=== PATIENT | female | born 1995 | race Caucasian/White ===

== ENCOUNTER 2016-09-12 10:53 | Emergency (ER) | payer OTHER ==
[~2016-09-12] VITALS: Ht 162.6 cm; Wt 118.0 kg
[~2016-09-12 10:53] MED LIST: CIPR-255 PO
[2016-09-12 10:59] VITALS: TEMP 36.9; Ht 162.6 cm; Wt 118.0 kg
--- NOTE | 2016-09-12 11:29 | DIAGNOSTIC IMAGING REPORT ---
CHEST ONE VIEW PORTABLE CLINICAL HISTORY: CHEST PAIN dyspnea COMPARISON STUDY: No previous studies for comparison. FINDINGS: The bones soft tissues and hemidiaphragms are normal. The cardiomediastinal silhouette is normal. The lungs are clear. The pulmonary vasculature is normal. IMPRESSION: Negative chest. Electronically signed by: Alexandro Delarosa M.D. 09/12/2016 11:28 AM Dictated Date/Time: 09/12/2016 11:28 AM
[2016-09-12 11:30] LABS: BASO % 0.2 %; BASO ABS # 0.03 K/uL (0-0.2); COMPLETE YES; EOS % 5.6 %; HEMATOCRIT 42.8 % (37-47); IG% 0.3 %; LYMPH % 30.7 %; LYMPH ABS # 3.97 K/uL (1.2-3.4); MEAN CELL VOLUME 86.8 fL (80-100); MEAN CORPUSCULAR HEMOGLOBIN 28.8 pg (25-34); MEAN CORPUSCULAR HGB CONC 33.2 g/dl (32-36); MEAN PLATELET VOLUME 10.1 fL (7.4-10.4); MONO % 7.9 %; NEUT % 55.3 %; PLATELET COUNT 280 K/uL (130-400); RED BLOOD COUNT 4.93 M/uL (4.2-5.4); WHITE BLOOD COUNT 12.94 K/uL (4.8-10.8)
[2016-09-12 11:53] LABS: PREG INTERNAL NEGATIVE QC NEG CLEAR BACKGROUND; PREG INTERNAL POSITIVE QC POS CONTROL LINE
[2016-09-12 11:57] LABS: ALKALINE PHOSPHATASE 102 U/L (45-117); ALT/SGPT 36 U/L (12-78); BLOOD UREA NITROGEN 14 mg/dl (7-18); BUN/CREATININE RATIO 18.6 (10-20); CALCIUM 8.4 mg/dl (8.5-10.1); CARBON DIOXIDE 25 mmol/L (21-32); CHLORIDE 109 mmol/L (98-107); CREATININE 0.74 mg/dl (0.60-1.20); GLUCOSE 113 mg/dl (70-99); POTASSIUM 4.4 mmol/L (3.5-5.1); SODIUM 141 mmol/L (136-145)
[2016-09-12 11:58] LABS: AST/SGOT 19 U/L (15-37)
[2016-09-12] MEDS ORDERED: OPTIRAY 320 IV PRN (12:45)
--- NOTE | 2016-09-12 13:29 | DIAGNOSTIC IMAGING REPORT ---
CHEST CTA for PULMONARY ARTERIES CT DOSE: 712.12 mGy.cm HISTORY: Chest pain dyspnea TECHNIQUE: Multiaxial CT images of the chest were performed following the intravenous administration of contrast to evaluate the pulmonary arteries. Maximal intensity projection images were also obtained. COMPARISON STUDY: None. FINDINGS: There is a normal caliber thoracic aorta with no evidence for dissection. There is no evidence for pulmonary embolus. No pleural effusions. No pneumothorax. The liver and spleen are unremarkable. No mediastinal or hilar lymphadenopathy. The central airways are patent. The lungs are clear. Small component of residual 5 minutes. IMPRESSION: No evidence for pulmonary embolus. Lungs are clear. Electronically signed by: Alexandro Delarosa M.D. 09/12/2016 1:28 PM Dictated Date/Time: 09/12/2016 1:24 PM
--- NOTE | 2016-09-12 14:19 | EMERGENCY ROOM VISIT NOTE ---
History Report prepared by Hemalatha: Angelo Ford Under the Supervision of: Dr. Demarcus Méndez M.D. First contact with patient: 11:04 Chief Complaint: CHEST PAIN Stated Complaint: BREATHING PROBLEMS,CHEST PAIN Nursing Triage Summary: substernal chest pain to left side with a cough that goes into her back that feels like needles History of Present Illness The patient is a 21 year old female who presents to the Emergency Room with complaints of constant left sided chest pain beginning yesterday. She states that her pain radiates around her side and into her back. She states that she was driving when her pain began. The patient notes that she recently returned home from a car trip to [place] a few days ago. She also complains of a productive cough and SOB. Her pain is worsened with coughing. Her cough produces a dark green sputum. The patient denies any trauma. 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 Source of History: patient Onset: yesterday Position: chest (left) Timing: constant Modifying Factors (Worsening): other (coughing) Associated Symptoms: + SOB, + cough (productive) Review of Systems See HPI for pertinent positives & negatives. A total of 10 systems reviewed and were otherwise negative. Past Medical & Surgical Medical Problems: (1) No Known Active Medical Problems (2) Urinary tract infection (3) Urinary tract infection Old medical records were reviewed. Nurse's notes were reviewed and I agree with. No history of cardiac disease, blood clots or pulmonary disease Family History No pertinent family history stated. Social History Smoking Status: Current Every Day Smoker Marital Status: in relationship Allergies Coded Allergies: POLLEN (Verified Allergy, Intermediate, congestion, 09/12/16) Tramadol (Verified Adverse Reaction, Unknown, hallucinate, 09/12/16) Physical Exam Vital Signs Date Time Temp Pulse Resp B/P Pulse Ox O2 Delivery O2 Flow Rate FiO2 09/12/16 14:26 78 18 120/76 96 09/12/16 13:22 76 22 114/97 97 Room Air 09/12/16 11:35 98 09/12/16 10:59 36.9 99 18 137/79 95 Physical Exam General: Well developed, well nourished, non-ill appearing young female breathing comfortably on room air. Normal speech. Mildly anxious and teary eyed at times but otherwise in no acute distress. HEENT: Normal cephalic atraumatic. Pupils are equal round and reactive to light. Extraocular movements are intact. Oropharynx is pink with moist mucous membranes. No swelling of the mouth lips or tongue. Neck: Supple with a midline trachea. No meningeal signs or stiffness, no JVD or bruits. No Stridor. Chest: Clear to auscultation bilaterally. No wheezes or rhonchi. No increased work of breathing. Tenderness to palpation of the chest wall. Heart: regular rate and rhythm. Abdomen: Soft nontender, nondistended without rebound guarding or rigidity. Extremities: No cyanosis clubbing or edema. No calf tenderness or assymetry Spine/Back. Non tender to palpation. No CVA tenderness Skin: Good turgor without rashes. Neurologic exam: Cranial nerves two through 12 are intact. Motor and sensation are intact and symmetrical throughout. Medical Decision & Procedures ER Provider Diagnostic Interpretation: Radiology results as stated below per my review and radiologist interpretation: CHEST ONE VIEW PORTABLE FINDINGS: The bones soft tissues and hemidiaphragms are normal. The cardiomediastinal silhouette is normal. The lungs are clear. The pulmonary vasculature is normal. IMPRESSION: Negative chest. Electronically signed by: Alexandro Delarosa M.D. CHEST CTA for PULMONARY ARTERIES FINDINGS: There is a normal caliber thoracic aorta with no evidence for dissection. There is no evidence for pulmonary embolus. No pleural effusions. No pneumothorax. The liver and spleen are unremarkable. No mediastinal or hilar lymphadenopathy. The central airways are patent. The lungs are clear. Small component of residual 5 minutes. IMPRESSION: No evidence for pulmonary embolus. Lungs are clear. Electronically signed by: Alexandro Delarosa M.D. Laboratory Results 09/12/16 11:11 Red Blood Count 4.93, Mean Corpuscular Volume 86.8, Mean Corpuscular Hemoglobin 28.8, Mean Corpuscular Hemoglobin Concent 33.2, Mean Platelet Volume 10.1, Neutrophils (%) (Auto) 55.3, Lymphocytes (%) (Auto) 30.7, Monocytes (%) (Auto) 7.9, Eosinophils (%) (Auto) 5.6, Basophils (%) (Auto) 0.2, Neutrophils # (Auto) 7.16, Lymphocytes # (Auto) 3.97, Monocytes # (Auto) 1.02, Eosinophils # (Auto) 0.72, Basophils # (Auto) 0.03 09/12/16 11:11 Test 09/12/16 11:11 09/12/16 11:15 White Blood Count 12.94 K/uL (4.8-10.8) Red Blood Count 4.93 M/uL (4.2-5.4) Hemoglobin 14.2 g/dL (12.0-16.0) Hematocrit 42.8 % (37-47) Mean Corpuscular Volume 86.8 fL (80-100) Mean Corpuscular Hemoglobin 28.8 pg (25-34) Mean Corpuscular Hemoglobin Concent 33.2 g/dl (32-36) Platelet Count 280 K/uL (130-400) Mean Platelet Volume 10.1 fL (7.4-10.4) Neutrophils (%) (Auto) 55.3 % Lymphocytes (%) (Auto) 30.7 % Monocytes (%) (Auto) 7.9 % Eosinophils (%) (Auto) 5.6 % Basophils (%) (Auto) 0.2 % Neutrophils # (Auto) 7.16 K/uL (1.4-6.5) Lymphocytes # (Auto) 3.97 K/uL (1.2-3.4) Monocytes # (Auto) 1.02 K/uL (0.11-0.59) Eosinophils # (Auto) 0.72 K/uL (0-0.5) Basophils # (Auto) 0.03 K/uL (0-0.2) RDW Standard Deviation 43.7 fL (36.4-46.3) RDW Coefficient of Variation 13.7 % (11.5-14.5) Immature Granulocyte % (Auto) 0.3 % Immature Granulocyte # (Auto) 0.04 K/uL (0.00-0.02) Anion Gap 7.0 mmol/L (3-11) Est Creatinine Clear Calc Drug Dose 152.0 ml/min Estimated GFR () 134.2 Estimated GFR (Non- 115.8 BUN/Creatinine Ratio 18.6 (10-20) Calcium Level 8.4 mg/dl (8.5-10.1) Total Bilirubin 0.2 mg/dl (0.2-1) Direct Bilirubin < 0.1 mg/dl (0-0.2) Aspartate Amino Transf (AST/SGOT) 19 U/L (15-37) Alanine Aminotransferase (ALT/SGPT) 36 U/L (12-78) Alkaline Phosphatase 102 U/L (45-117) Total Protein 6.9 gm/dl (6.4-8.2) Albumin 3.3 gm/dl (3.4-5.0) Lipase 136 U/L (73-393) Human Chorionic Gonadotropin, Qual NEG (NEG) Bedside D-Dimer > 450 ng/mlFEU (0-450) Bedside Troponin I 0.000 ng/ml (0-0.045) Laboratory studies as stated above per my review. ECG Indication: chest pain Rate (beats per minute): 91 Rhythm: normal sinus Findings: no acute ischemic change, no ectopy ED Course 1105: Past medical records reviewed. The patient was evaluated in room C12B, and a complete history and physical examination were performed. Medical Decision Differentials include, but are not limited to; costochondritis, acute coronary syndrome, PE, pneumothorax, and electrolyte or metabolic abnormality. This patient comes in as described above. She was placed in room C12. She is here for treatment and evaluation of chest pain. She does seem mildly anxious . She is reproducibly tender. IV access established and she was given Toradol IV. Multiple blood testing was obtained. EKG does not suggest acute coronary syndrome or arrhythmia. Her cardiac enzymes are unremarkable and her symptoms are atypical for cardiac disease. She is not . She's no acute electrolyte or metabolic abnormalities. Her d-dimer is mildly elevated. I did explain the risks and benefits of doing a CAT scan including radiation risk. She has freely consents and the CAT scan was obtained and shows no evidence of PE I think most likely this is musculoskeletal. She will use ibuprofen for pain return if: increasing pain, worsening of symptoms, any new problems or concerns. The patient and her family happy with plan and she was discharged to home.. Impression Primary Impression: Central chest pain Scribe Attestation The scribe's documentation has been prepared under my direction and personally reviewed by me in its entirety. I confirm that the note above accurately reflects all work, treatment, procedures, and medical decision making performed by me. Departure Information Dispostion Home / Self-Care Referrals No Doctor, Assigned (PCP) Forms HOME CARE DOCUMENTATION FORM, IMPORTANT VISIT INFORMATION Patient Instructions My [facility] Additional Instructions Rest. Drink plenty of fluids. Use ibuprofen 400 mg every 6 hours, take with food Return if: Increasing pain, worsening of symptoms, fever or chills, any new problems or concerns Follow-up with your doctor in 1-2 days for recheck
[2016-09-12 14:26] VITALS: BP 120/76; PULSE 78; O2SAT 96
== END 2016-09-12 14:27 | disposition home or self-care (01) ==
LOC: C.EDB 10:54 → C.EDC 14:27
DX: R07.9 Chest pain, unspecified (principal); F17.200 Nicotine dependence, unspecified, uncomplicated

== ENCOUNTER 2019-07-09 02:50 | Observation (INO) ==
[2019-07-09] MEDS ORDERED: HYDROmorphone INJ 0.5 MG/0.5 ML SYR IV STA ×3 (03:27→07:29)
[2019-07-09] MEDS ORDERED: SODIUM CHLORIDE 0.9% 1000ML 1,000 ML IV SCH (03:30)
[2019-07-09] MEDS ORDERED: ONDANSETRON INJ 2 MG/ML 2 ML VIAL IV STA (03:30)
--- NOTE | 2019-07-09 03:31 | Emergency Department Note ---
History of Present Illness General Chief complaint: Illness Stated complaint: PAIN IN LEFT LEG Time Seen by Provider: 07/09/19 03:12 History of Present Illness Maximum Pain Intensity: 10 This is a 24-year-old female that presents to the emergency department via private vehicle with complaints of "pain in left leg". The patient states that she has known left lower back pain that radiates throughout the left leg. She follows with [facility] for this. She states that she is to have an injection on 07/13. She states that the pain is severe and is a 10/10. She also notes that she feels nauseous, and has had intermittent nausea and vomiting the past 3 days and has had trouble eating and drinking. She also notes that there is a mass in the abdomen. She also trouble sleeping secondary to the pain in left lower extremity. She believes that the plan at this time is to have surgery here although she notes that she was transferred just a few days ago down to [facility] and then discharged home. She states that while there she was placed on antibiotics. Home Medications Home Medications Medication Instructions Recorded Confirmed Type gabapentin 300 mg PO TID 07/05/19 07/09/19 History ibuprofen 200 - 600 mg PO DIRECTED PRN 07/05/19 07/09/19 History ketorolac 10 mg PO QID PRN 07/09/19 07/09/19 History metronidazole 500 mg PO Q12 07/09/19 07/09/19 History Allergies Allergy/AdvReac Type Severity Reaction Status Date / Time pollen extracts Allergy Intermediate congestion Verified 07/09/19 03:08 tramadol AdvReac Unknown hallucinate Verified 07/09/19 03:08 Past Med/Surg History Medical History Anxiety disorder (Chronic) Depression (Chronic) Migraine Rectal bleeding (Inactive) Umbilical fistula Surgical History History of tonsillectomy (Resolved) Family History Father Diabetes Grandmother Diabetes Grandfather Diabetes Uncle Diabetes Aunt Diabetes Denies family history of Ovarian cancer Prostate cancer Myocardial infarction Breast cancer Colorectal cancer Social History Preferred Language: French Communication Ability: Effective Visual Impairment: No Limitations Hearing Ability: Normal marital status: Single Current Living Situation: Significant Other current occupational status: employed current occupation: [employer] Feels Safe at Home: Yes Smoking Status: Current every day smoker Tobacco Type: cigarettes ; Cigarettes Per Day: 5 ; Hx Alcohol Use: No Hx Substance Use: No caffeine: Yes (coffee) Physical Activity Frequency: Does not Exercise Seatbelt Use: always Sunscreen Use: No Review of Systems A total of 10 systems reviewed and were otherwise negative Physical Exam Vital Signs Vital Signs - 24 hr 07/09/19 02:56 07/09/19 03:54 07/09/19 03:55 Temperature 36.7 C Temperature Source Oral Pulse Rate 83 Pulse Rate [Bilateral Apical] 69 Pulse Rhythm [Bilateral Apical] Pulse Strength [Bilateral Apical] Respiratory Rate 18 18 Respiratory Effort / Characteristics Respiratory Depth Normal Respiratory Pattern Blood Pressure 118/83 Blood Pressure [Left Arm] 111/55 L Blood Pressure Mean 94 Blood Pressure Mean [Left Arm] 73 Blood Pressure Position [Left Arm] Pulse Oximetry 98 98 97 Oxygen Delivery Method Room Air Room Air Room Air Sepsis Recent Fever Within 48 Hours No Sepsis New/Unexplained Change in Mental Status No Sepsis Action Taken by Nursing No Action Required 07/09/19 05:03 07/09/19 07:38 Temperature Temperature Source Pulse Rate Pulse Rate [Bilateral Apical] 63 67 Pulse Rhythm [Bilateral Apical] Regular Pulse Strength [Bilateral Apical] Normal Respiratory Rate 18 18 Respiratory Effort / Characteristics Non-Labored Non-Labored Spontaneous Respiratory Depth Normal Normal Respiratory Pattern Regular Regular Blood Pressure Blood Pressure [Left Arm] 141/98 H 111/51 L Blood Pressure Mean Blood Pressure Mean [Left Arm] 112 71 Blood Pressure Position [Left Arm] Lying Lying Pulse Oximetry 100 98 Oxygen Delivery Method Room Air Room Air Sepsis Recent Fever Within 48 Hours Sepsis New/Unexplained Change in Mental Status Sepsis Action Taken by Nursing VITAL SIGNS - Vital signs and nursing notes were reviewed. Stable and afebrile. GENERAL -24-year-old female appearing her stated age who is in no acute distress. Communicates well with provider and answers questions appropriately. SKIN - Without rashes. No meningeal or petechial rash. HEAD - NC/AT. EYES - PERRL with EOMI bilaterally. Sclera anicteric. EARS - No deformities of external structures noted on gross examination bila terally. NOSE - Midline and without cyanosis. No epistaxis or purulent drainage noted. MOUTH/OROPHARYNX - Without perioral cyanosis. NECK - Neck with FROM. Supple to palpation. No nuchal rigidity. LUNGS - Chest wall symmetric without accessory muscle use, intercostals retractions, or central cyanosis. Normal vesicular breath sounds CTA B/L. No wheezes, rales, or rhonchi appreciated. CARDIAC - RRR with S1/S2. No murmur, rubs, or gallops appreciated. ABDOMEN - Abdominal contour normal without pulsations or visible masses. BS normoactive all four quadrants. I am not able to appreciate the mass on exam. There is diffuse abdominal tenderness to palpation but the abdomen is not rigid. The abdomen is soft. No palpable masses, hepatosplenomegaly, or ascites noted. EXTREMITIES - No clubbing or peripheral cyanosis. No pretibial edema present. +5/5 strength noted in UE/LE bilaterally. NEUROLOGIC - Cranial nerves II through XII grossly intact. Sensory intact to light touch throughout. Patient is able to perform straight leg raise bilaterally. PSYCH - A&Ox3 and cooperates fully with examiner. Pt is very pleasant and interacts well with examiner. Course Administered Medications Discontinued Medications Hydromorphone HCl (Dilaudid) 0.5 mg IV NOW STA Stop: 07/09/19 03:28 Last Admin: 07/09/19 03:49 Dose: 0.5 mg Documented by: [id number] Hydromorphone HCl (Dilaudid) 0.5 mg IV NOW STA Stop: 07/09/19 05:05 Last Admin: 07/09/19 05:15 Dose: 0.5 mg Documented by: [id number] Hydromorphone HCl (Dilaudid) 0.5 mg IV NOW STA Stop: 07/09/19 07:30 Last Admin: 07/09/19 07:41 Dose: 0.5 mg Documented by: [id number] Sodium Chloride (Nss 1000ml) 1,000 mls @ 999 mls/hr IV .Q1H1M DANK Stop: 07/09/19 04:30 Last Infusion: 07/09/19 04:52 Dose: 0 mls/hr Documented by: [id number] Admin: 07/09/19 03:49 Dose: 999 mls/hr Documented by: [id number] Ioversol (Optiray 320 100ml) 91 ml IV ONCE PRN PRN Reason: Interaction Checking Stop: 07/13/19 04:35 Last Admin: 07/09/19 04:36 Dose: 1 ml Documented by: [id number] Ketorolac Tromethamine (Toradol) 15 mg IV NOW STA Stop: 07/09/19 07:44 Last Admin: 07/09/19 07:46 Dose: 15 mg Documented by: [id number] Ondansetron HCl (Zofran) 4 mg IV NOW STA Stop: 07/09/19 03:31 Last Admin: 07/09/19 03:49 Dose: 4 mg Documented by: [id number] Medical Decision Making Laboratory Data Result diagrams: 07/09/19 03:40 07/09/19 03:40 Lab Results 07/09/19 07/09/19 07/09/19 Range/Units 03:40 03:40 05:10 WBC 17.09 H (4.8-10.8) K/uL RBC 4.78 (4.2-5.4) M/uL Hgb 14.4 (12.0-16.0) g/dL Hct 42.2 (37-47) % MCV 88.3 (80-100) fL MCH 30.1 (25-34) pg MCHC 34.1 (32-36) g/dL RDW Std Deviation 43.8 (36.4-46.3) fL RDW Coeff of Beba 13.5 (11.5-14.5) % Plt Count 305 (130-400) K/uL MPV 10.2 (7.4-10.4) fL Immature Gran % (Auto) 0.4 % Neut % (Auto) 50.7 % Lymph % (Auto) 39.4 % Douglas % (Auto) 8.3 % Eos % (Auto) 1.0 % Baso % (Auto) 0.2 % Immature Gran # (Auto) 0.06 H (0.00-0.02) K/uL Neut # (Auto) 8.68 H (1.4-6.5) K/uL Lymph # (Auto) 6.74 H (1.2-3.4) K/uL Douglas # (Auto) 1.41 H (0.11-0.59) K/uL Eos # (Auto) 0.17 (0-0.5) K/uL Baso # (Auto) 0.03 (0-0.2) K/uL Sodium 140 (136-145) mmol/L Potassium 3.9 (3.5-5.1) mmol/L Chloride 110 H (98-107) mmol/L Carbon Dioxide 24 (21-32) mmol/L Anion Gap 6.0 (3-11) BUN 21 H (7-18) mg/dl Creatinine 0.90 (0.6-1.2) mg/dl Est Cr Clr Drug Dosing 117.1 ml/min Est GFR ( Amer) 103.7 Est GFR (Non-Af Amer) 89.5 BUN/Creatinine Ratio 23.4 H (10-20) Glucose 97 (70-99) mg/dl Calcium 8.4 L (8.5-10.1) mg/dl Magnesium 2.2 (1.8-2.4) mg/dl Total Bilirubin 0.5 (0.2-1) mg/dl AST 27 (15-37) U/L ALT 52 (12-78) U/L Alkaline Phosphatase 62 (45-117) U/L Total Protein 6.4 (6.4-8.2) gm/dl Albumin 3.4 (3.4-5.0) gm/dl Globulin 3.0 (2.5-4.0) gm/dl Albumin/Globulin Ratio 1.1 (0.9-2) Lipase 82 (73-393) U/L Urine Color Monica Urine Appearance Slightly Cloudy (Clear) Urine pH 6.0 (4.5-7.5) Ur Specific [place] 1.015 (1.000-1.030) Urine Protein Negative (Negative) Urine Glucose (UA) Negative (Negative) Urine Ketones Trace H (Negative) Urine Blood Negative (Negative) Urine Nitrite Negative (Negative) Urine Bilirubin Negative (Negative) Urine Urobilinogen Negative (Negative) Ur Leukocyte Esterase Negative (Negative) POC Ur Test (NEG) 07/09/19 Range/Units 05:10 WBC (4.8-10.8) K/uL RBC (4.2-5.4) M/uL Hgb (12.0-16.0) g/dL Hct (37-47) % MCV (80-100) fL MCH (25-34) pg MCHC (32-36) g/dL RDW Std Deviation (36.4-46.3) fL RDW Coeff of Beba (11.5-14.5) % Plt Count (130-400) K/uL MPV (7.4-10.4) fL Immature Gran % (Auto) % Neut % (Auto) % Lymph % (Auto) % Douglas % (Auto) % Eos % (Auto) % Baso % (Auto) % Immature Gran # (Auto) (0.00-0.02) K/uL Neut # (Auto) (1.4-6.5) K/uL Lymph # (Auto) (1.2-3.4) K/uL Douglas # (Auto) (0.11-0.59) K/uL Eos # (Auto) (0-0.5) K/uL Baso # (Auto) (0-0.2) K/uL Sodium (136-145) mmol/L Potassium (3.5-5.1) mmol/L Chloride (98-107) mmol/L Carbon Dioxide (21-32) mmol/L Anion Gap (3-11) BUN (7-18) mg/dl Creatinine (0.6-1.2) mg/dl Est Cr Clr Drug Dosing ml/min Est GFR ( Amer) Est GFR (Non-Af Amer) BUN/Creatinine Ratio (10-20) Glucose (70-99) mg/dl Calcium (8.5-10.1) mg/dl Magnesium (1.8-2.4) mg/dl Total Bilirubin (0.2-1) mg/dl AST (15-37) U/L ALT (12-78) U/L Alkaline Phosphatase (45-117) U/L Total Protein (6.4-8.2) gm/dl Albumin (3.4-5.0) gm/dl Globulin (2.5-4.0) gm/dl Albumin/Globulin Ratio (0.9-2) Lipase (73-393) U/L Urine Color Urine Appearance (Clear) Urine pH (4.5-7.5) Ur Specific [place] (1.000-1.030) Urine Protein (Negative) Urine Glucose (UA) (Negative) Urine Ketones (Negative) Urine Blood (Negative) Urine Nitrite (Negative) Urine Bilirubin (Negative) Urine Urobilinogen (Negative) Ur Leukocyte Esterase (Negative) POC Ur Test NEG (NEG) Imaging Data Radiologist's Impression: CT ABDOMEN & PELVIS With Contrast: No interval change in the cystic mass involving the pelvis when compared to the previous examination dated 07/05/2019. The presumed right ovarian tissue demonstrates an increased ovoid hypodense area when compared to the previous exam, now measuring 2.6 x 2.5 cm (series 2; images 65-68). Given the short interval time period, a developing cystic process such as a simple or hemorrhagic cyst of the right ovary is suggested. There appears to be adjacent vascular perfusion along the margin of the adnexal tissue, similar in appearance to the previous exam. No bowel obstruction. No free intraperitoneal fluid or pneumoperitoneum. Normal caliber appendix. The liver, gallbladder, pancreas, spleen, adrenal glands and kidneys demonstrate no significant abnormality. The bladder is mildly distended without significant wall abnormalities or calcifications. No acute osseous or significant overlying soft tissue abnormality. Radiologist: Pedro Montoya MD Study ready at 05:07 and initial results transmitted at 05:18 CT OF THE LUMBAR SPINE CLINICAL HISTORY: Back pain. COMPARISON STUDY: Lumbar spine MRI March 31, 2019. TECHNIQUE: Helical axial images of the lumbar spine were obtained. Sagittal and coronal reconstructions were viewed. Automated exposure control was utilized for the study. A dose lowering technique was utilized adhering to the principles of ALARA. FINDINGS: For purposes of numbering on this exam, the L5-S1 disc space is assigned to axial image 318 of 370. Vertebral body heights are maintained. There is no fracture or suspicious lesion. The large cystic pelvic mass is better depicted on CT of the abdomen and pelvis which will be reported separate. There is moderate disc space narrowing at L4-L5 and L5-S1. The central canal and neural foramen are suboptimally assessed by CT. A large left paracentral disc extrusion at L5-S1 is noted which results in marked narrowing of the left lateral recess. There is moderate narrowing of the central canal and left lateral recess at L4-L5 due to disc bulge with left paracentral disc protrusion. There is mild disc bulge with small central disc protrusion at L3-L4. IMPRESSION: 1. No acute lumbar spine fracture or subluxation. 2. Large left paracentral disc extrusion at L5-S1 that results in severe narrowing of the left lateral recess, similar to MRI of March 31, 2019. 3. Moderate narrowing of the central canal and left lateral recess at L4-L5 due to disc bulge and small left paracentral disc protrusion. 4. Mild disc bulge and small central disc protrusion at L3-L4. 5. Large cystic pelvic mass, better depicted on CT of the abdomen and pelvis. ACT 112: Negative or not required by law. Electronically signed by: Marcus Franklin M.D. 07/09/2019 9:15 A MDM Narrative Patient was seen and evaluated as above in room B 10. Review was performed of nursing notes and vital signs. After obtaining a thorough history and physical examination the above work up was performed. She presents to us today with what appears to be left-sided radicular low back pain. I will note that I did review her MRI from late March of this past year and there was L5-S1 findings to contribute to her symptoms here today. There is no neurovascular deficit on examination. Patient does appear to be in quite a bit of pain. IV access was established. Labs were drawn. She was given IV Dilaudid, Zofran and fluids. There is improving leukocytosis of 17.09 but no anemia. There is no emergent metabolic disturbance. Urinalysis does not suggest infection. UPT negative. CT scan was obtained as the patient was quite tender in the abdomen and the concern was potential rupture of the mass. There was no change in the mass but there was an interval development of what appears to be likely a right ovarian cyst. I think the back pain is separate from her abdominal mass. She has a well-documented MRI from late March of this past year which likely contributes to her symptoms. She is no infectious findings on exam. Unfortunately patient required multiple pain medications here and after the CT resulted and there was no rupture I did give the patient Toradol. With the persistence of pain it was felt that further evaluation in the inpatient setting may be warranted. I did discuss the abdominal mass with the on-call CARDIAC REHAB NURSE Dr. Wong. We discussed transfer to [facility] but unfortunate they were not accepting any transfers either inpatient or to the emergency department. With this finding, we discussed options of care. Her office, speci fically Dr. Baez is attempting to arrange surgical follow-up at [facility]. Ideally we would be able to discharge the patient for her to receive a phone call later today about a maintenance technician appointment in [place] but with her separate and unrelated lumbar radiculopathy uncontrolled at this time it is felt that she may need to stay in the hospital here. I did hold off on IV steroids in the event the patient has surgery planned in the near future for the abdominal mass. The patient does not feel comfortable being discharged home with her pain level and therefore I did consult the hospitalist, Dr. Joseph. He will come to evaluate the patient. I did order reconstructive images of the L- spine from the abdomen pelvis CT earlier today. She has no neurovascular deficit warranting that of an MRI today. Patient was happy with plan of care. Please refer to further documentation regarding her stay. Case was discussed with the attending physician. In the evaluation and treatment of this patient the following differential diagnoses were entertained: UTI, pyelonephritis, lumbar radiculopathy, cauda equina syndrome, appendicitis, diverticulitis, among others. Impression & Plan Acute radicular low back pain, Elevated WBC count, Pelvic mass Discharge Plan Visit Data *Final* Discharge Date/Time: 07/09/19 09:41 Chief Complaint: Illness Stated Complaint: PAIN IN LEFT LEG ED Provider: Renetta Egan ED Midlevel Provider: Vasile Rizo Discharge Problem: Acute radicular low back pain, Elevated WBC count, Pelvic mass Patient Disposition: Admitted As Inpatient Condition: Good Discharge Instructions Interventions: ED Discharge Assessment Last Done: 07/09/19 09:41
[2019-07-09 03:52] LABS: Hematocrit (blood only) 42.2 % (37-47); Hemoglobin 14.4 g/dL (12.0-16.0); Mean Corpuscular Hemoglobin 30.1 pg (25-34); Mean Corpuscular Hgb Conc 34.1 g/dL (32-36); Mean Corpuscular Volume 88.3 fL (80-100); Mean Platelet Volume 10.2 fL (7.4-10.4); Platelet Count 305 K/uL (130-400); RDW Coefficient of Variation 13.5 % (11.5-14.5); RDW Standard Deviation 43.8 fL (36.4-46.3); Red Blood Count 4.78 M/uL (4.2-5.4); White Blood Count 17.09 K/uL (4.8-10.8)
[2019-07-09 04:09] LABS: Albumin Level 3.4 gm/dl (3.4-5.0); BUN Creatinine Ratio 23.4 (10-20); Basophils # (auto) 0.03 K/uL (0-0.2); Basophils % (auto) 0.2 %; Calcium 8.4 mg/dl (8.5-10.1); Creatinine Clr Calc Pharmacy 117.1 ml/min; Eosinophils # (auto) 0.17 K/uL (0-0.5); Est GFR (African American) 103.7; Est GFR (Non-African American) 89.5; Immature Granulocytes # (auto) 0.06 K/uL (0.00-0.02); Immature Granulocytes % (auto) 0.4 %; Lymphocytes # (auto) 6.74 K/uL (1.2-3.4); Lymphocytes % (auto) 39.4 %; Magnesium 2.2 mg/dl (1.8-2.4); Monocytes # (auto) 1.41 K/uL (0.11-0.59); Monocytes % (auto) 8.3 %; Neutrophils # (auto) 8.68 K/uL (1.4-6.5); Neutrophils % (auto) 50.7 %; Potassium 3.9 mmol/L (3.5-5.1)
[2019-07-09 04:11] LABS: Albumin Globulin Ratio 1.1 (0.9-2); Bilirubin,Total 0.5 mg/dl (0.2-1); Total Protein 6.4 gm/dl (6.4-8.2)
[2019-07-09] MEDS ORDERED: IOVERSOL 100ml IV PRN (04:36)
[2019-07-09 05:24] LABS: Appearance Urine Slightly Cloudy (Clear); Bilirubin Urine Negative (Negative); Blood Urine Negative (Negative); Color Urine Amber; Glucose Urine UA Negative (Negative); Ketones Urine Trace (Negative); Leukocyte Esterase Urine Negative (Negative); Nitrite Urine Negative (Negative); Protein Urine Negative (Negative); Specific Gravity Urine 1.015 (1.000-1.030); Urobilinogen Urine Negative (Negative)
--- NOTE | 2019-07-09 06:58 | CT Scan Report ---
CT OF THE ABDOMEN AND PELVIS WITH CONTRAST CLINICAL HISTORY: low back pain, cannot eat, emesis, abd pain. MASS COMPARISON STUDY: Pelvic ultrasound June 26, 2019. CT of the abdomen and pelvis June 0. TECHNIQUE: Following IV administration of 92 mL of Optiray-320, axial images of the abdomen and pelvi s were obtained from the lung bases to the proximal femurs. Images were reviewed in the axial, sagitt al, and coronal planes. IV contrast was administered without complication. Automated exposure contro l was utilized for the study. A dose lowering technique was utilized adhering to the principles of A MU. CT DOSE: 1527.94 mGy.cm FINDINGS: Oral contrast from prior CT is noted within the colon and rectum. No pneumatosis, free air or portal venous gas is present. Fatty infiltration of the liver is noted. Spleen, adrenal glands, ki dneys and pancreas are unremarkable. There is no biliary or pancreatic ductal dilatation. There is no hydronephrosis. The appendix is normal. There is no evidence for a bowel obstruction. A cystic 17.1 x 16.7 x 13.9 cm central pelvic mass is again noted no mural nodularity or septations are identified by CT. There is no ascites. This abuts both ovaries. This is likely ovarian in etiology but is diffic ult to determine with certainty which ovary this arises from. This is unchanged since CT of July 05, 2019. No peritoneal nodules are noted. No suspicious osseous lesions are present. A 3 cm hypodens e right ovarian lesion favors a dominant follicle or cyst. IMPRESSION: 1. No change in a 17.1 x 16.7 x 13.9 cm cystic pelvic mass since prior CT. This abuts both ovaries an d is likely ovarian in etiology but it is difficult to determine with certainty ovary this arises fro m. No complexity by CT however gynecologic consultation for consideration for resection is recommende d given the size. 2. No acute process within the abdomen or pelvis. Normal appendix. No bowel obstruction. 3. 3 cm dominant follicle/cyst within the right ovary. 4. Fatty infiltration of the liver. ACT 112: Negative or not required by law. Electronically signed by: Marcus Franklin M.D. 07/09/2019 6:57 AM
[2019-07-09] MEDS ORDERED: KETOROLAC TROMETHAMINE 15 MG/ML VIAL IV STA (07:43)
--- NOTE | 2019-07-09 09:16 | CT Scan Report ---
CT OF THE LUMBAR SPINE CLINICAL HISTORY: Back pain. COMPARISON STUDY: Lumbar spine MRI March 31, 2019. TECHNIQUE: Helical axial images of the lumbar spine were obtained. Sagittal and coronal reconstruct ions were viewed. Automated exposure control was utilized for the study. A dose lowering technique was utilized adhering to the principles of ALARA. FINDINGS: For purposes of numbering on this exam, the L5-S1 disc space is assigned to axial image 318 of 370. Vertebral body heights are maintained. There is no fracture or suspicious lesion. The large cystic pelvic mass is better depicted on CT of the abdomen and pelvis which will be reported separate . There is moderate disc space narrowing at L4-L5 and L5-S1. The central canal and neural foramen are suboptimally assessed by CT. A large left paracentral disc extrusion at L5-S1 is noted which results in marked narrowing of the left lateral recess. There is moderate narrowing of the central canal and left lateral recess at L4-L5 due to disc bulge with left paracentral disc protrusion. There is mild disc bulge with small central disc protrusion at L3-L4. IMPRESSION: 1. No acute lumbar spine fracture or subluxation. 2. Large left paracentral disc extrusion at L5-S1 that results in severe narrowing of the left latera l recess, similar to MRI of March 31, 2019. 3. Moderate narrowing of the central canal and left lateral recess at L4-L5 due to disc bulge and sma ll left paracentral disc protrusion. 4. Mild disc bulge and small central disc protrusion at L3-L4. 5. Large cystic pelvic mass, better depicted on CT of the abdomen and pelvis. ACT 112: Negative or not required by law. Electronically signed by: Marcus Franklin M.D. 07/09/2019 9:15 AM
[2019-07-09] MEDS ORDERED: HYDROmorphone INJ 1 MG/ML SYRINGE IV PRN (09:47)
[2019-07-09] MEDS ORDERED: GABAPENTIN 300 MG CAP PO SCH (10:15)
[2019-07-09] MEDS: methylPREDNISolone 40 MG in SYRINGE 0 ML IV SCH ×2 (10:29→20:55)
[2019-07-09] MEDS: ACETAMINOPHEN 325 MG TAB PO PRN ×2 (10:30→23:49)
--- NOTE | 2019-07-09 10:36 | History & Physical Report ---
Date of Service July 09, 2019 Assessment & Plan (1) Acute radicular low back pain: known left sided disc protrusion at L5-S1 with pressure on S1 nerve root also with known central canal narrowing at L3-L4 with symptoms of radicular pain down left leg, also with paresthesias pain getting worse over past few weeks scheduled for epidural injection with [facility] next Sunday will treat pain and nerve root irritation with Solu Medrol 40mg q12, Dilaudid PRN, Neurontin look for improvement so she can be discharged and get injection early next week (2) Paresthesia of left lower extremity: due to known disc protrusion, pressure on S1 nerve root symptoms extend into left foot Solu Medrol, neurontin, Dilaudid (3) Pelvic mass: was evaluated at [facility] gynecology will be reaching out to [facility] for urgent outpatient visit set up for appointment on Friday 07/14 and plan for surgery that day (4) Obese: History of Present Illness Chief Complaint: I have pain shooting down my left leg Primary Care Provider: Allie Jefferson MD 24 yo female with history of chronic back pain, discovered to have a disc bulge at L5-S1 on the left on MRI of the lumbar spine in April 2019. The pain was treated with narcotics, gradually improved but then started to return and get significantly worse over the past few weeks, really bad the past few days. Moving her left leg, ambulating, changing positions makes the pain worse. She will get some relief by laying completely still. The pain radiates from her lower spine, into left buttock, into left leg all the way down to the foot. She has been experiencing paresthesias in the left leg and foot as well. She has not experienced any weakness in the left leg. No saddle numbness, no bowel or bladder incontinence, reports that she is straining to move bowels and it can be painful. No fever or chills. No recent injuries such as falls, accidents, sudden twisting that could have made the pain worse. The pain was relieved with Dilaudid IV in the ED but only transiently. Also, the patient has a suspicious pelvic mass that needs surgically removed. She is scheduled for appointment with [facility] on Friday 07/14. The mass is not causing her much pain. She is urinating well. Allergies Allergy/AdvReac Type Severity Reaction Status Date / Time pollen extracts Allergy Intermediate congestion Verified 07/09/19 03:08 tramadol AdvReac Unknown hallucinate Verified 07/09/19 03:08 Home Medications Home Medications Medication Instructions Recorded Confirmed Type gabapentin 300 mg PO TID 07/05/19 07/09/19 History ibuprofen 200 - 600 mg PO DIRECTED PRN 07/05/19 07/09/19 History ketorolac 10 mg PO QID PRN 07/09/19 07/09/19 History metronidazole 500 mg PO Q12 07/09/19 07/09/19 History Past Med/Surg History Medical History Anxiety disorder (Chronic) Depression (Chronic) Migraine Rectal bleeding (Inactive) Umbilical fistula Surgical History History of tonsillectomy (Resolved) Family History Father Diabetes Grandmother Diabetes Grandfather Diabetes Uncle Diabetes Aunt Diabetes Denies family history of Ovarian cancer Prostate cancer Myocardial infarction Breast cancer Colorectal cancer Social History Preferred Language: Irish Communication Ability: Effective Visual Impairment: No Limitations Hearing Ability: Normal 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: No Beliefs That Will Affect Care: None marital status: Single Current Living Situation: Family current occupational status: employed current occupation: [employer] Other Information That Helps Us Care for You: No Feels Safe at Home: Yes Safety Concerns: Feels Safe At This Time Smoking Status: Current every day smoker Tobacco Type: cigarettes ; Cigarettes Per Day: 5 ; Do You Dip or Chew Tobacco: No ; Second Hand Exposure: Yes ; Tobacco Cessation Education Requested by Patient: No Hx Alcohol Use: No Hx Substance Use: No caffeine: Yes (coffee) Physical Activity Frequency: Does not Exercise Seatbelt Use: always Sunscreen Use: No Review of Systems Review of Systems: All systems reviewed & are unremarkable except as noted in HPI & below Musculoskeletal: + back pain (radicular pain down left leg) Neurologic: + unsteadiness, + generalized weakness, + numbness, + paresthesia and + radiating pain; no tremor(s), no seizure-like activity, no dizziness and no confusion Physical Exam Constitutional: WD/WN, vitals as above + obese Eyes: PERRL, conjunctivae normal, anicteric sclerae ENMT: external ear and nose normal, oropharynx normal Neck: trachea midline, no thyromegaly Respiratory: normal respiratory effort, lungs clear to auscultation Cardiovascular: RRR, no murmur, no edema Gastrointestinal (Abdomen): normal bowel sounds, soft, nontender, no hepatosplenomegaly Musculoskeletal: Head/Neck/Chest: normocephalic and head atraumatic Spine: + limited thoraco-lumbar ROM, + lumbar spinal tenderness (left), + straight leg raise positive (left) and + buttock tenderness Extremities: extremities normal to inspection and strength 5/5 throughout Skin: no rashes, warm and dry Neurologic: patellar DTR's 2+ bilat, sensation intact and PERRL, EOMI, accommodation nl, no face palsy, no dysarthria Psychiatric: A+Ox3, euthymic affect Lymphatic: no cervical or axillary lymphadenopathy Results & Data Vital Signs (Past 12 Hours) Vital Signs Temp Pulse Pulse Pulse Resp BP BP 07/09/19 09:45 07/09/19 09:44 36.6 C 92 H 20 103/68 07/09/19 09:11 82 20 118/51 L 07/09/19 07:38 67 18 111/51 L 07/09/19 05:03 63 18 141/98 H 07/09/19 03:55 07/09/19 03:54 69 18 111/55 L 07/09/19 02:56 36.7 C 83 18 118/83 Pulse Ox Pulse Ox 07/09/19 09:45 96 07/09/19 09:44 96 07/09/19 09:11 97 07/09/19 07:38 98 07/09/19 05:03 100 07/09/19 03:55 97 07/09/19 03:54 98 07/09/19 02:56 98 Laboratory Results Laboratory Results - last 24 hr 07/09/19 07/09/19 07/09/19 03:40 03:40 05:10 WBC 17.09 H RBC 4.78 Hgb 14.4 Hct 42.2 MCV 88.3 MCH 30.1 MCHC 34.1 RDW Std Deviation 43.8 RDW Coeff of Beba 13.5 Plt Count 305 MPV 10.2 Immature Gran % (Auto) 0.4 Neut % (Auto) 50.7 Lymph % (Auto) 39.4 Hancock % (Auto) 8.3 Eos % (Auto) 1.0 Baso % (Auto) 0.2 Immature Gran # (Auto) 0.06 H Neut # (Auto) 8.68 H Lymph # (Auto) 6.74 H Hancock # (Auto) 1.41 H Eos # (Auto) 0.17 Baso # (Auto) 0.03 Sodium 140 Potassium 3.9 Chloride 110 H Carbon Dioxide 24 Anion Gap 6.0 BUN 21 H Creatinine 0.90 Est Cr Clr Drug Dosing 117.1 Est GFR ( Amer) 103.7 Est GFR (Non-Af Amer) 89.5 BUN/Creatinine Ratio 23.4 H Glucose 97 Calcium 8.4 L Magnesium 2.2 Total Bilirubin 0.5 AST 27 ALT 52 Alkaline Phosphatase 62 Total Protein 6.4 Albumin 3.4 Globulin 3.0 Albumin/Globulin Ratio 1.1 Lipase 82 Urine Color Monica Urine Appearance Slightly Cloudy Urine pH 6.0 Ur Specific Baker 1.015 Urine Protein Negative Urine Glucose (UA) Negative Urine Ketones Trace H Urine Blood Negative Urine Nitrite Negative Urine Bilirubin Negative Urine Urobilinogen Negative Ur Leukocyte Esterase Negative POC Ur Test 07/09/19 05:10 WBC RBC Hgb Hct MCV MCH MCHC RDW Std Deviation RDW Coeff of Beba Plt Count MPV Immature Gran % (Auto) Neut % (Auto) Lymph % (Auto) Hancock % (Auto) Eos % (Auto) Baso % (Auto) Immature Gran # (Auto) Neut # (Auto) Lymph # (Auto) Hancock # (Auto) Eos # (Auto) Baso # (Auto) Sodium Potassium Chloride Carbon Dioxide Anion Gap BUN Creatinine Est Cr Clr Drug Dosing Est GFR ( Amer) Est GFR (Non-Af Amer) BUN/Creatinine Ratio Glucose Calcium Magnesium Total Bilirubin AST ALT Alkaline Phosphatase Total Protein Albumin Globulin Albumin/Globulin Ratio Lipase Urine Color Urine Appearance Urine pH Ur Specific Baker Urine Protein Urine Glucose (UA) Urine Ketones Urine Blood Urine Nitrite Urine Bilirubin Urine Urobilinogen Ur Leukocyte Esterase POC Ur Test NEG Diagnostic Findings Lumbar Spine CT IMPRESSION: 1. No acute lumbar spine fracture or subluxation. 2. Large left paracentral disc extrusion at L5-S1 that results in severe narrowing of the left lateral recess, similar to MRI of March 31, 2019. 3. Moderate narrowing of the central canal and left lateral recess at L4-L5 due to disc bulge and small left paracentral disc protrusion. 4. Mild disc bulge and small central disc protrusion at L3-L4. 5. Large cystic pelvic mass, better depicted on CT of the abdomen and pelvis. Code Status & VTE Plan VTE Prophylaxis Plan VTE Prophylaxis will be ordered: Yes PG Care Time/CCT Total # of Minutes Spent Total Time Spent with Patient: Total time spent is greater than 50% in coordination of care (as documented) at patient's floor/unit and/or counseling patient: Coding Level of Care Code 03644 Initial Inpt Care Lvl 3 Diagnoses Acute radicular low back pain M54.16 Paresthesia of left lower extremity R20.2 Pelvic mass R19.00 Obese E66.9
[2019-07-09] MEDS: metroNIDAZOLE 500 MG TAB PO SCH ×2 (10:40→20:55)
[2019-07-09] MEDS: HYDROmorphone INJ 0.5 MG/0.5 ML SYR IV PRN ×3 (11:45→21:29)
--- NOTE | 2019-07-09 12:54 | Communication Note ---
Date of Service: July 09, 2019 I wandered to patient room to see if [facility] [place]. Sequeira had contacted pt as of yet and he was actually on phone with her mom. I spoke to Dr. Sequeira and he stated he added patient on to his OR schedule for 07/15/19 and will see her same day for preop. He stated his office has been trying to reach patient for days but numbers available go to and mailbox full--pt is aware. Either way, there is now a plan for her surgery for pelvic mass and pt prefers [facility] as she is concerned about potential cancer. She is aware that most likely benign. Tried to notify Dr. Joseph of updated medical policy specialist plan but could not reach at this time so put in this communication note with what I know.
[2019-07-09] MEDS: GABAPENTIN 100 MG CAP PO SCH ×2 (13:02→20:55)
[2019-07-09] MEDS: OXYCODONE/ACETAMINOPHEN 5mg/325mg TAB PO PRN ×3 (14:08→23:50)
[2019-07-09] MEDS: DOCUSATE SODIUM 100 MG CAP PO SCH (20:55)
[2019-07-10] MEDS: HYDROmorphone INJ 0.5 MG/0.5 ML SYR IV PRN ×2 (02:26→08:21)
[2019-07-10] MEDS: OXYCODONE/ACETAMINOPHEN 5mg/325mg TAB PO PRN ×4 (07:38→23:07)
[2019-07-10] MEDS: GABAPENTIN 100 MG CAP PO SCH (09:05)
[2019-07-10] MEDS: metroNIDAZOLE 500 MG TAB PO SCH ×2 (09:08→20:54)
[2019-07-10] MEDS: DOCUSATE SODIUM 100 MG CAP PO SCH ×2 (09:08→20:54)
[2019-07-10] MEDS: methylPREDNISolone 40 MG in SYRINGE 0 ML IV SCH ×2 (10:17→17:53)
[2019-07-10] MEDS: GABAPENTIN 300 MG CAP PO SCH ×2 (13:16→20:54)
[2019-07-10] MEDS: HYDROmorphone INJ 1 MG/ML SYRINGE IV PRN ×2 (13:41→18:48)
--- NOTE | 2019-07-10 17:00 | Hospitalist Progress Note ---
Date of Service July 10, 2019 Assessment & Plan (1) Acute radicular low back pain: known left sided disc protrusion at L5-S1 with pressure on S1 nerve root also with known central canal narrowing at L3-L4 with symptoms of radicular pain down left leg, also with paresthesias pain getting worse over past few weeks scheduled for epidural injection with [facility] next Sunday not much improvement in pain today, will increase Solu Medrol to 40mg q8, increase Neurontin to 300mg TID, increase Dilaudid will ask Dr. Briones to review films tomorrow will check with Dr. Acevedo in [place] to see if epidural injection would be okay prior to surgery (2) Paresthesia of left lower extremity: due to known disc protrusion, pressure on S1 nerve root symptoms extend into left foot Solu Medrol, neurontin (increase to 300mg TID), Dilaudid (3) Pelvic mass: was evaluated at [facility] gynecology will be reaching out to [facility] for urgent outpatient visit set up for appointment on Friday 07/14 and plan for surgery that day (4) Obese: Admission and Anticipated Discharge Date Admission Date: July 09, 2019 Subjective patient with increased pain today, it is worse with movement despite that, she is trying to move more, knows that laying in bed is not best she is eating okay, no abdominal pain, no nausea will increase her Solu Medrol, Gabapentin and Dilaudid updated her mother at the bedside, plan to talk with Dr. Briones tomorrow and her surgeon in [place] want to discuss if an epidural injection on Sunday would be okay prior to surgery fear that she will not get much pain relief without injection Review of Systems Review of Systems: All systems reviewed & are unremarkable except as noted in HPI & below Musculoskeletal: + back pain (severe) and + radicular pain (left leg) Neurologic: + paresthesia (left leg and foot) Physical Exam Constitutional: WD/WN, vitals as above + obese Eyes: PERRL, conjunctivae normal, anicteric sclerae ENMT: external ear and nose normal, oropharynx normal Neck: trachea midline, no thyromegaly Respiratory: normal respiratory effort, lungs clear to auscultation Cardiovascular: RRR, no murmur, no edema Gastrointestinal (Abdomen): normal bowel sounds, soft, nontender, no hepatosplenomegaly Musculoskeletal: Head/Neck/Chest: normocephalic and head atraumatic Spine: + limited thoraco-lumbar ROM, + lumbar spinal tenderness (left), + straight leg raise positive (left) and + buttock tenderness Extremities: extremities normal to inspection and strength 5/5 throughout Skin: no rashes, warm and dry Neurologic: patellar DTR's 2+ bilat, sensation intact and PERRL, EOMI, acco mmodation nl, no face palsy, no dysarthria Psychiatric: A+Ox3, euthymic affect Lymphatic: no cervical or axillary lymphadenopathy Results & Data ([facility]) Vital Signs (Past 12 Hours) Vital Signs Temp Pulse Resp BP Pulse Ox Pulse Ox 07/10/19 15:28 37.4 C 58 L 19 128/81 92 07/10/19 11:01 37.0 C 68 18 122/73 93 07/10/19 08:02 96 07/10/19 07:49 37.0 C 68 20 126/79 96 Medications Administered Current Inpatient Medications Acetaminophen (Tylenol) 650 mg PO Q4H PRN PRN Reason: pain/fever Stop: 08/08/19 09:46 Last Admin: 07/09/19 23:49 Dose: 650 mg Documented by: Docusate Sodium (Colace) 100 mg PO BID REPLACED BY [facility] Stop: 08/08/19 20:59 Last Admin: 07/10/19 09:08 Dose: 100 mg Documented by: Gabapentin (Neurontin) 300 mg PO TID REPLACED BY [facility] Stop: 08/09/19 13:59 Last Admin: 07/10/19 13:16 Dose: 300 mg Documented by: Hydromorphone HCl (Dilaudid) 1 mg IV Q4H PRN PRN Reason: Pain Stop: 07/23/19 09:46 Last Admin: 07/10/19 13:41 Dose: 1 mg Documented by: Methylprednisolone 40 mg/ (Syringe) 0.64 mls @ 1.5 mls/min IV Q8H DANK Stop: 08/09/19 17:59 Metronidazole (Flagyl) 500 mg PO Q12 REPLACED BY [facility] Stop: 07/19/19 10:14 Last Admin: 07/10/19 09:08 Dose: 500 mg Documented by: Ondansetron HCl (Zofran) 4 mg IV Q6H PRN PRN Reason: Nausea Stop: 08/08/19 09:46 Oxycodone/Acetaminophen (Percocet 5mg/325mg) 2 tab PO Q4H PRN PRN Reason: Pain Stop: 07/23/19 13:59 Last Admin: 07/10/19 12:25 Dose: 2 tab Documented by: PG Care Time/CCT Total # of Minutes Spent Total Time Spent with Patient: Total time spent is greater than 50% in coordination of care (as documented) at patient's floor/unit and/or counseling patient: Coding Level of Care Code 15985 Subseq Hosp Care Lvl 2 Diagnoses Acute radicular low back pain M54.16 Paresthesia of left lower extremity R20.2 Pelvic mass R19.00 Obese E66.9
[2019-07-10] MEDS: ONDANSETRON INJ 2 MG/ML 2 ML VIAL IV PRN (19:41)
[2019-07-11] MEDS: methylPREDNISolone 40 MG in SYRINGE 0 ML IV SCH ×3 (01:56→18:08)
[2019-07-11] MEDS: ONDANSETRON INJ 2 MG/ML 2 ML VIAL IV PRN ×4 (02:18→23:51)
[2019-07-11] MEDS: HYDROmorphone INJ 1 MG/ML SYRINGE IV PRN ×5 (02:18→19:06)
[2019-07-11] MEDS: OXYCODONE/ACETAMINOPHEN 5mg/325mg TAB PO PRN ×5 (03:20→23:50)
[2019-07-11] MEDS: GABAPENTIN 300 MG CAP PO SCH ×3 (08:27→21:01)
[2019-07-11] MEDS: METHYLNALTREXONE BROMIDE 12 MG/0.6 ML VIAL SQ SCH (08:27)
[2019-07-11] MEDS: DOCUSATE SODIUM 100 MG CAP PO SCH ×2 (08:27→21:04)
[2019-07-11] MEDS: metroNIDAZOLE 500 MG TAB PO SCH ×2 (09:06→21:01)
[2019-07-11] MEDS: ACETAMINOPHEN 325 MG TAB PO PRN (09:55)
[2019-07-11] MEDS ORDERED: POLYETHYLENE (MIRALAX) 17 GM PACK PO PRN (13:02)
[2019-07-11] MEDS: KETOROLAC 30 MG/ML VIAL IV PRN ×2 (13:28→21:04)
--- NOTE | 2019-07-11 13:42 | Hospitalist Progress Note ---
Date of Service July 11, 2019 Assessment & Plan (1) Acute radicular low back pain: known left sided disc protrusion at L5-S1 with pressure on S1 nerve root also with known central canal narrowing at L3-L4 with symptoms of radicular pain down left leg, also with paresthesias pain getting worse over past few weeks scheduled for epidural injection with [facility] next Sunday not much improvement in pain the past 48 hours, continue Solu Medrol 40mg q8, continue Neurontin to 300mg TID oral narcotics Toradol IV ordered will ask Dr. Briones to review films -- significant disease, will likely need surgery in future, will try to get injection called office of Dr. Acevedo in [place], no call back need to discuss that she is on Solu Medrol and Toradol want to know how long she can wait for surgery on pelvic mass (2) Paresthesia of left lower extremity: due to known disc protrusion, pressure on S1 nerve root symptoms extend into left foot Solu Medrol, neurontin (300mg TID), Dilaudid (3) Pelvic mass: was evaluated at [facility] gynecology will be reaching out to [place] [facility] for urgent outpatient visit set up for appointment on Friday 07/14 and plan for surgery that day (4) Obese: Admission and Anticipated Discharge Date Admission Date: July 09, 2019 Subjective discussed case with Dr Briones today, he reviewed the MRI from March she has significant disease, will likely need surgery called office of Dr. Sequeira, did not get a call back, need to discuss steroid use patient still in a lot of pain, the current regimen is not working well enough will try some Toradol IV to see if the anti-inflammatory helps she is eating well still no BM she has concerns about work with [employer] paper work, I told her I could complete whatever I could if she brings in paperwork Review of Systems Review of Systems: All systems reviewed & are unremarkable except as noted in HPI & below Constitutional: no fever Respiratory: no cough and no dyspnea Cardiovascular: no chest pain and no edema Gastrointestinal: + constipation; no abdominal pain, no nausea, no vomiting and no diarrhea/loose stools Genitourinary: no dysuria, no urinary frequency and no urinary hesitancy Musculoskeletal: + back pain, + radicular pain and + limited range of motion; no neck pain, no joint pain and no stiffness Physical Exam Constitutional: WD/WN, vitals as above + obese Eyes: PERRL, conjunctivae normal, anicteric sclerae ENMT: external ear and nose normal, oropharynx normal Neck: trachea midline, no thyromegaly Respiratory: normal respiratory effort, lungs clear to auscultation Cardiovascular: RRR, no murmur, no edema Gastrointestinal (Abdomen): normal bowel sounds, soft, nontender, no hepatosplenomegaly Musculoskeletal: Head/Neck/Chest: normocephalic and head atraumatic Spine: + limited thoraco-lumbar ROM, + lumbar spinal tenderness (left), + straight leg raise positive (left) and + buttock tenderness Extremities: extremities normal to inspection and strength 5/5 throughout Skin: no rashes, warm and dry Neurologic: patellar DTR's 2+ bilat, sensation intact and PERRL, EOMI, accommodation nl, no face palsy, no dysarthria Psychiatric: A+Ox3, euthymic affect Lymphatic: no cervical or axillary lymphadenopathy Results & Data ([facility]) Vital Signs (Past 12 Hours) Vital Signs Temp Pulse Resp BP Pulse Ox Pulse Ox 07/11/19 07:43 95 07/11/19 07:19 36.9 C 75 19 114/70 95 Medications Administered Current Inpatient Medications Docusate Sodium (Colace) 100 mg PO BID DANK Stop: 08/08/19 20:59 Last Admin: 07/11/19 21:04 Dose: 100 mg Documented by: Gabapentin (Neurontin) 300 mg PO TID DANK Stop: 08/09/19 13:59 Last Admin: 07/11/19 21:01 Dose: 300 mg Documented by: Hydromorphone HCl (Dilaudid) 1 mg IV Q4H PRN PRN Reason: Pain Stop: 07/23/19 09:46 Last Admin: 07/11/19 19:06 Dose: 1 mg Documented by: Methylprednisolone 40 mg/ (Syringe) 0.64 mls @ 1.5 mls/min IV Q8H DANK Stop: 08/09/19 17:59 Last Admin: 07/11/19 18:08 Dose: 1.5 mls/min Documented by: Ketorolac Tromethamine (Toradol) 30 mg IV Q6H PRN PRN Reason: Pain Stop: 07/16/19 13:01 Last Admin: 07/11/19 21:04 Dose: 30 mg Documented by: Methylnaltrexone [place] (Relistor) 12 mg SQ Q2D DANK Stop: 08/10/19 08:59 Last Admin: 07/11/19 08:27 Dose: 12 mg Documented by: Metronidazole (Flagyl) 500 mg PO Q12 [facility] Stop: 07/19/19 10:14 Last Admin: 07/11/19 21:01 Dose: 500 mg Documented by: Ondansetron HCl (Zofran) 4 mg IV Q6H PRN PRN Reason: Nausea Stop: 08/08/19 09:46 Last Admin: 07/11/19 14:44 Dose: 4 mg Documented by: Oxycodone/Acetaminophen (Percocet 5mg/325mg) 2 tab PO Q4H PRN PRN Reason: Pain Stop: 07/23/19 13:59 Last Admin: 07/11/19 18:12 Dose: 2 tab Documented by: Polyethylene Glycol (Miralax Powder Packet) 17 gm PO DAILY PRN PRN Reason: Constipation Stop: 08/10/19 13:01 Last Admin: 07/11/19 18:12 Dose: 17 gm Documented by: PG Care Time/CCT Total # of Minutes Spent Total Time Spent with Patient: Total time spent is greater than 50% in coordination of care (as documented) at patient's floor/unit and/or counseling patient: Coding Level of Care Code 18651 Subseq Hosp Care Lvl 2 Diagnoses Acute radicular low back pain M54.16 Paresthesia of left lower extremity R20.2 Pelvic mass R19.00 Obese E66.9
[2019-07-12] MEDS: HYDROmorphone INJ 1 MG/ML SYRINGE IV PRN ×5 (01:46→23:47)
[2019-07-12] MEDS: methylPREDNISolone 40 MG in SYRINGE 0 ML IV SCH ×3 (01:46→17:27)
[2019-07-12] MEDS: KETOROLAC 30 MG/ML VIAL IV PRN ×2 (08:46→17:27)
[2019-07-12] MEDS: GABAPENTIN 300 MG CAP PO SCH ×3 (08:47→20:57)
[2019-07-12] MEDS: metroNIDAZOLE 500 MG TAB PO SCH ×2 (08:47→20:57)
[2019-07-12] MEDS: ONDANSETRON INJ 2 MG/ML 2 ML VIAL IV PRN (09:26)
[2019-07-12] MEDS: DOCUSATE SODIUM 100 MG CAP PO SCH ×2 (10:40→20:57)
[2019-07-12] MEDS: OXYCODONE/ACETAMINOPHEN 5mg/325mg TAB PO PRN (11:25)
[2019-07-12] MEDS ORDERED: HYDROmorphone INJ 1 MG/ML SYRINGE IV STA (15:07)
[2019-07-12] MEDS ORDERED: LORazepam 0.5 MG/1 ML VIAL IV ONE (15:30)
--- NOTE | 2019-07-12 16:39 | Hospitalist Progress Note ---
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 Briones, he recommends reaching out to [facility] tomorrow I plan to discuss with gynecologic surgeon about the treatment she is getting could consider pain management consultation to injection this week at this time the patient cannot even get out of the hospital due to pain in no condition to get pelvic mass removed (2) Paresthesia of left lower extremity: due to known disc protrusion, pressure on S1 nerve root symptoms extend into left foot Solu Medrol, neurontin (300mg TID), Dilaudid (3) Pelvic mass: was evaluated at [facility] gynecology will be reaching out to [facility] for urgent outpatient visit set up for appointment on Friday 07/14 and plan for surgery that day (4) Obese: Admission and Anticipated Discharge Date Admission Date: July 09, 2019 Subjective patient still with severe pain in left buttock, radiating down posterior left leg she is not getting much relief from combination of Dilaudid, Percocet, Solu Medrol, Toradol she was laying on ice packs this morning she reports that after she laid on the ice she noticed numbness in her buttocks bilaterally, numbness in her external genitalia she said she could not feel the urge to urinate but she kept going to the bathroom, bearing down and she could urinate but did not feel the urine coming out she did NOT have any urinary incontinence she still has not moved her bowels in several days despite Miralax, stool softeners, eating fiber, drinking well examined the patient, strength was intact in bilateral lower extremities light sensation intact in bilateral extremities, only numbness was in bottom of left foot patient was able to ambulate she was in tears due to the pain, reported that her IV in right arm infiltrated, was not getting appropriate medications she was visibly anxious updated her mother at the bedside, discussed that we will get MRI lumbar spine stat to rule out cauda equina syndrome discussed that I felt it was unlikely given that she was ambulating, moving her legs, just could not ignore the reported saddle anesthesia and urinary difficulties discussed with Dr. Briones over the phone prior to MRI, he recommends that the patient go to [facility] for evaluation due to complexities of the pelvic mass MRI lumbar spine without signs of cauda equina, results very similar to MRI in March Review of Systems Review of Systems: All systems reviewed & are unremarkable except as noted in HPI & below Gastrointestinal: + constipation Musculoskeletal: + back pain, + radicular pain, + stiffness and + limited range of motion Psychiatric: + anxiety (tearful) Physical Exam Constitutional: WD/WN, vitals as above + obese Eyes: PERRL, conjunctivae normal, anicteric sclerae ENMT: external ear and nose normal, oropharynx normal Neck: trachea midline, no thyromegaly Respiratory: normal respiratory effort, lungs clear to auscultation Cardiovascular: RRR, no murmur, no edema Gastrointestinal (Abdomen): normal bowel sounds, soft, nontender, no hepatosplenomegaly Musculoskeletal: Head/Neck/Chest: normocephalic and head atraumatic Spine: + limited thoraco-lumbar ROM, + lumbar spinal tenderness (left), + straight leg raise positive (left) and + buttock tenderness Extremities: extremities normal to inspection and strength 5/5 throughout Skin: no rashes, warm and dry Neurologic: patellar DTR's 2+ bilat, sensation intact and PERRL, EOMI, accommodation nl, no face palsy, no dysarthria Psychiatric: A+Ox3, euthymic affect Lymphatic: no cervical or axillary lymphadenopathy Results & Data ([facility]) Vital Signs (Past 12 Hours) Vital Signs Temp Pulse Resp BP Pulse Ox 07/12/19 15:20 37.5 C 64 16 125/66 94 Diagnostic Findings MRI Lumbar spine IMPRESSION: 1. Similar findings as on prior MR with a congenitally narrow spinal canal and discogenic degenerative change from L3-4 through L5-S1, most severe at L5-S1. 2. Mass effect on the transiting left S1 nerve root at the level of the disc protrusion/extrusion at L5-S1. 3. Lesser degenerative changes as detailed above. 4. Cystic abdominopelvic mass. Please correlate with gynecologic consultation. Medications Administered Current Inpatient Medications Docusate Sodium (Colace) 100 mg PO BID [facility] Stop: 08/08/19 20:59 Last Admin: 07/12/19 10:40 Dose: 100 mg Documented by: Gabapentin (Neurontin) 300 mg PO TID [facility] Stop: 08/09/19 13:59 Last Admin: 07/12/19 13:40 Dose: 300 mg Documented by: Hydromorphone HCl (Dilaudid) 1 mg IV Q4H PRN PRN Reason: Pain Stop: 07/23/19 09:46 Last Admin: 07/12/19 13:40 Dose: 1 mg Documented by: Methylprednisolone 40 mg/ (Syringe) 0.64 mls @ 1.5 mls/min IV Q8H [facility] Stop: 08/09/19 17:59 Last Admin: 07/12/19 17:27 Dose: 1.5 mls/min Documented by: Ketorolac Tromethamine (Toradol) 30 mg IV Q6H PRN PRN Reason: Pain Stop: 07/16/19 13:01 Last Admin: 07/12/19 17:27 Dose: 30 mg Documented by: Methylnaltrexone Ovid (Relistor) 12 mg SQ Q2D [facility] Stop: 08/10/19 08:59 Last Admin: 07/11/19 08:27 Dose: 12 mg Documented by: Metronidazole (Flagyl) 500 mg PO Q12 [facility] Stop: 07/19/19 10:14 Last Admin: 07/12/19 08:47 Dose: 500 mg Documented by: Ondansetron HCl (Zofran) 4 mg IV Q6H PRN PRN Reason: Nausea Stop: 08/08/19 09:46 Last Admin: 07/12/19 09:26 Dose: 4 mg Documented by: Oxycodone/Acetaminophen (Percocet 5mg/325mg) 2 tab PO Q4H PRN PRN Reason: Pain Stop: 07/23/19 13:59 Last Admin: 07/12/19 11:25 Dose: 2 tab Documented by: Polyethylene Glycol (Miralax Powder Packet) 17 gm PO DAILY PRN PRN Reason: Constipation Stop: 08/10/19 13:01 Last Admin: 07/11/19 18:12 Dose: 17 gm Documented by: PG Care Time/CCT Total # of Minutes Spent Total Time Spent: 45 Total Time Spent with Patient: Total time spent is greater than 50% in coordination of care (as documented) at patient's floor/unit and/or counseling patient: visited the patient three times, examined her twice due to her new, potentially worsening symptoms updated the patient and her mother three times called Dr. Briones on the phone to discuss plan Coding Level of Care Code 58808 Subseq Hosp Care Lvl 3 Diagnoses Acute radicular low back pain M54.16 Paresthesia of left lower extremity R20.2 Pelvic mass R19.00 Obese E66.9
--- NOTE | 2019-07-12 17:18 | Magnetic Resonance Report ---
MR lumbar spine wo con CLINICAL HISTORY: 24 years-old Female presenting with Saddle anesthesia, urinary retention, low back pain, left radiculopathy with pain radiating to the toes, pelvic mass, unsteady gait. TECHNIQUE: Multisequence, multiplanar MR imaging of the lumbar spine was performed without the use of intravenous contrast. IV contrast: None. COMPARISON: MR from 03/31/[address] from 07/09/2019. FINDINGS: Localizer images: Cystic abdominopelvic mass measuring 17.6 x 12.0 x 16.2 cm as on prior exam. Slight straightening of normal lumbar lordosis. The spinal canal is narrow on a developmental basis. Fatty endplate changes noted at L4-5 and L5-S1 as on prior exam. Vertebral bodies otherwise maintain normal height, alignment, and bone marrow signal intensity. Intervertebral disc desiccation from L3-4 through L5-S1 with multilevel annular fissures and disc bulges. A level by level analysis is given b elow: L1-2: No significant spinal canal or neural foraminal narrowing. L2-3: No significant spinal canal or neural foraminal narrowing. L3-4: Disc bulge with central disc protrusion in the setting of an annular fissure. This results in m oderate focal central effacement of the ventral thecal sac. There is also mild bilateral neural vievk inal narrowing. Findings are unchanged. L4-5: Disc bulge with annular fissure and a superimposed central disc protrusion resulting in moderat e effacement of the ventral thecal sac centrally. The disc protrusion has 4 mm of caudal migration, s table to minimally progressed from prior. Abutment of the bilateral transiting L5 nerve roots may be present. Mild to moderate right and moderate left neural foraminal narrowing as on prior. L5-S1: Disc bulge with superimposed disc protrusion along the left posterolateral aspect. This result s in severe focal effacement of the left aspect of the ventral thecal sac, left lateral recess, and l eft neural foramen. There is mass effect on the transiting left S1 nerve root. This appears to spare the exiting left L5 nerve root. There may also be a disc extrusion with caudal migration along the le ft lateral aspect of the thecal sac (series 7 image 24; series 2 image 8). This is similar to prior. Spinal cord terminates in good position at T12. Cauda equina normal morphology apart from crowding as mentioned. No paraspinal muscle edema. Visualized portion of the sacrum intact. Flow voids within th e vasculature preserved. IMPRESSION: 1. Similar findings as on prior MR with a congenitally narrow spinal canal and discogenic degenerati ve change from L3-4 through L5-S1, most severe at L5-S1. 2. Mass effect on the transiting left S1 nerve root at the level of the disc protrusion/extrusion at L5-S1. 3. Lesser degenerative changes as detailed above. 4. Cystic abdominopelvic mass. Please correlate with gynecologic consultation. ACT 112: Negative or not required by law. Electronically signed by: Lebron Jose M.D. 07/12/2019 5:16 PM
[2019-07-12] MEDS ORDERED: SOD PHOSPHATE/SOD BIPHOSPHATE ENEMA 132 ML BTL PR ONE (20:48)
[2019-07-12] MEDS ORDERED: MAGNESIUM HYDROXIDE SUSP 30 ML UDC PO ONE (22:52)
[2019-07-13] MEDS: methylPREDNISolone 40 MG in SYRINGE 0 ML IV SCH ×3 (01:58→20:37)
[2019-07-13] MEDS: metroNIDAZOLE 500 MG TAB PO SCH (08:54)
[2019-07-13] MEDS: METHYLNALTREXONE BROMIDE 12 MG/0.6 ML VIAL SQ SCH (08:54)
[2019-07-13] MEDS: POLYETHYLENE (MIRALAX) 17 GM PACK PO SCH (08:55)
[2019-07-13] MEDS: GABAPENTIN 300 MG CAP PO SCH ×3 (08:55→20:38)
[2019-07-13] MEDS ORDERED: bisacodyL 10 MG SUPP PR STA (09:13)
[2019-07-13] MEDS ORDERED: SOD PHOSPHATE/SOD BIPHOSPHATE ENEMA 132 ML BTL PR PRN (09:13)
[2019-07-13] MEDS: DOCUSATE SODIUM 100 MG CAP PO SCH ×2 (09:28→20:48)
[2019-07-13] MEDS: MAGNESIUM HYDROXIDE SUSP 30 ML UDC PO PRN ×2 (09:28→20:49)
[2019-07-13] MEDS ORDERED: ONDANSETRON INJ 2 MG/ML 2 ML VIAL IV PRN (15:33)
[2019-07-13 16:04] LABS: Basophils # (auto) 0.01 K/uL (0-0.2); Hematocrit (blood only) 47.5 % (37-47); Hemoglobin 15.8 g/dL (12.0-16.0); Immature Granulocytes # (auto) 0.08 K/uL (0.00-0.02); Immature Granulocytes % (auto) 0.4 %; Lymphocytes % (auto) 12.6 %; Mean Corpuscular Hemoglobin 29.5 pg (25-34); Mean Corpuscular Volume 88.6 fL (80-100); Mean Platelet Volume 10.7 fL (7.4-10.4); Monocytes # (auto) 2.26 K/uL (0.11-0.59); Monocytes % (auto) 10.2 %; Neutrophils # (auto) 17.03 K/uL (1.4-6.5); Neutrophils % (auto) 76.8 %; Platelet Count 297 K/uL (130-400); RDW Coefficient of Variation 13.3 % (11.5-14.5); RDW Standard Deviation 43.2 fL (36.4-46.3); Red Blood Count 5.36 M/uL (4.2-5.4); White Blood Count 22.18 K/uL (4.8-10.8)
[2019-07-13 16:06] LABS: Mean Corpuscular Hgb Conc 33.3 g/dL (32-36)
--- NOTE | 2019-07-13 16:10 | Hospitalist Progress Note ---
Date of Service July 13, 2019 Assessment & Plan (1) Acute radicular low back pain: known left sided disc protrusion at L5-S1 with pressure on S1 nerve root also with known central canal narrowing at L3-L4 with symptoms of radicular pain down left leg, also with paresthesias pain getting worse over past few weeks prior to admission was scheduled for epidural injection with [facility] on Thursday 07/13 but could not wait until then repeat MRI Lumbar spine 07/11 again shows the L5-S1 herniation with severe stenosis of S1 nerve no significant change, no evidence of cauda equina syndrome will decrease Solu Medrol to 40mg q12 (from q8) since it is not having an effect on pain increase Neurontin to 400mg TID tomorrow oral narcotics (helping a little) Toradol IV ordered Dilaudid IV ordered for breakthrough still with a lot of pain, tearful at this point her symptoms have not improved to the point that she can be discharged as I had hoped will ask pain management to evaluate tomorrow, consider for injection soon as outpatient? d/w Dr. Briones, there is no immediate surgical need, want to try injection first may require surgery in the near future discussed with mother at the bedside, in a perfect scenario we can improve her pain control, perhaps she can get an injection if pain is controlled can then get her down to see gynecologic surgeon for removal of cystic mass once the cystic mass is removed she can follow up with Dr. Briones or other spine surgeon for recommendations going forward (2) Paresthesia of left lower extremity: due to known disc protrusion, pressure on S1 nerve root symptoms extend into left foot Solu Medrol, neurontin (400mg TID), Dilaudid (3) Pelvic mass: was evaluated at [facility] in the previous weeks was set up for appointment on Friday 07/14 and plan for surgery that day however, with increased pain from the disc herniation surgery on the mass has been placed on hold discussed with taxation consultant roofing supervisor today, Dr. Conner, she said she would pass a message along to Dr. Sequeira so he is aware unclear if this cystic mass is causing the numbness in her pelvic region, there was nothing obvious on the lumbar MRI (4) Obese: (5) Constipation: no BM in over a week she has been eating well, on Colace and Miralax, drinking fluids, but no BM got a dose of Relistor over night from night resident when they were called for constipation caused more cramps, abdominal pain today but no BM on 07/12 we tried Dulcolax suppository, enema, milk of magnesia, Miralax -- still no BM she vomited a few times, feels terrible ordered a KUB, shows stool in the left colon, non-obstructive bowel gas pattern she has bowel sounds on exam, no signs of ileus will try Lactulose 20mg TID, Miralax, keep moving, stay well hydrated could try another enema tomorrow likely that the cystic mass is putting some pressure on the sigmoid/rectum, making it more difficult for stool to pass (6) Elevated WBC count: due to steroids of note she was on Prednisone at time of admission when WBC was 17k today is is 22k on Solu Medrol 40mg q8 Admission and Anticipated Discharge Date Admission Date: July 09, 2019 Subjective not feeling well today tried to have a BM, no success with suppository, milk of magnesia, Miralax could only hold enema in for 3 minutes, no stool just the enema came out developed nausea and vomiting, did not eat at all she still has the numbness in her pelvic area, still with pain in lower back c/o increased abdominal cramping, discussed that it is likely the dose of Relistor she got over night due to her vomiting and constipation, checked a KUB, showed stool in the left side of the colon, non-obstructive bowel gas pattern WBC elevated at 22k, likely steroids Hb stable, Cr normal, electrolytes and LFT and lipase normal, lactate 1.9 started her on some NSS at 125cc/hr called [place] and discussed the case with Dr. Conner, gynecology discussed that the patient has required a lot of pain medication, steroids, NSAIDs to try to control her back pain she agreed that we need to control her back pain, radicular pain and then get the surgery will try to get epidural injection soon she said she would pass a message along to Dr. Sequeira about the steroids and NSAID use Review of Systems Review of Systems: All systems reviewed & are unremarkable except as noted in HPI & below Constitutional: + fatigue and + weakness; no fever Respiratory: no cough and no dyspnea Cardiovascular: no chest pain and no edema Gastrointestinal: + abdominal pain, + nausea, + vomiting, + cramping and + constipation; no diarrhea/loose stools Genitourinary: + difficulty urinating; no dysuria and no urinary frequency Musculoskeletal: + back pain, + radicular pain (left leg), + stiffness and + muscle weakness Physical Exam Constitutional: WD/WN, vitals as above + obese Eyes: PERRL, conjunctivae normal, anicteric sclerae ENMT: external ear and nose normal, oropharynx normal Neck: trachea midline, no thyromegaly Respiratory: normal respiratory effort, lungs clear to auscultation Cardiovascular: RRR, no murmur, no edema Gastrointestinal (Abdomen): normal bowel sounds, soft, nontender, no hepatosplenomegaly Musculoskeletal: Head/Neck/Chest: normocephalic and head atraumatic Spine: + limited thoraco-lumbar ROM, + lumbar spinal tenderness (left), + straight leg raise positive (left) and + buttock tenderness Extremities: extremities normal to inspection and strength 5/5 throughout Skin: no rashes, warm and dry Neurologic: PERRL, EOMI, accommodation nl, no face palsy, no dysarthria plantar reflexes intact bilaterally, moves all extremities and awake; + abnormal touch/pain/proprioception (decreased sensation left foot, decreased sensation genitals/buttocks) and no focal motor deficits Psychiatric: A+Ox3, euthymic affect Lymphatic: no cervical or axillary lymphadenopathy Results & Data ([facility]) Vital Signs (Past 12 Hours) Vital Signs Temp Pulse Pulse Resp BP Pulse Ox 07/13/19 15:56 37.0 C 62 22 134/77 100 07/13/19 15:07 37.1 C 66 18 145/83 H 93 Laboratory Results Laboratory Results - last 24 hr 07/13/19 07/13/19 07/13/19 15:50 15:50 15:50 WBC 22.18 H RBC 5.36 Hgb 15.8 Hct 47.5 H MCV 88.6 MCH 29.5 MCHC 33.3 RDW Std Deviation 43.2 RDW Coeff of Beba 13.3 Plt Count 297 MPV 10.7 H Immature Gran % (Auto) 0.4 Neut % (Auto) 76.8 Lymph % (Auto) 12.6 [place] % (Auto) 10.2 Eos % (Auto) 0.0 Baso % (Auto) 0.0 Immature Gran # (Auto) 0.08 H Neut # (Auto) 17.03 H Lymph # (Auto) 2.80 [place] # (Auto) 2.26 H Eos # (Auto) 0.00 Baso # (Auto) 0.01 Sodium 137 Potassium 4.5 Chloride 104 Carbon Dioxide 27 Anion Gap 6.0 BUN 21 H Creatinine 0.83 Est Cr Clr Drug Dosing 126.9 Est GFR ( Amer) 114.4 Est GFR (Non-Af Amer) 98.7 BUN/Creatinine Ratio 25.0 H Glucose 103 H Lactate 1.9 Calcium 8.3 L Total Bilirubin 0.3 AST 13 L ALT 48 Alkaline Phosphatase 66 Total Protein 7.0 Albumin 3.3 L Globulin 3.7 Albumin/Globulin Ratio 0.9 Lipase 54 L Medications Administered Current Inpatient Medications Docusate Sodium (Colace) 100 mg PO BID [facility] Stop: 08/08/19 20:59 Last Admin: 07/13/19 20:48 Dose: 100 mg Documented by: Gabapentin (Neurontin) 300 mg PO TID [facility] Stop: 08/09/19 13:59 Last Admin: 07/13/19 20:38 Dose: 300 mg Documented by: Hydromorphone HCl (Dilaudid) 1 mg IV Q4H PRN PRN Reason: Pain Stop: 07/23/19 09:46 Last Admin: 07/12/19 23:47 Dose: 1 mg Documented by: Sodium Chloride (Nss 1000ml) 1,000 mls @ 125 mls/hr IV .Q8H [facility] Stop: 07/14/19 07:29 Last Admin: 07/13/19 16:51 Dose: 125 mls/hr Documented by: Methylprednisolone 40 mg/ (Syringe) 0.64 mls @ 1.5 mls/min IV Q12 [facility] Stop: 08/12/19 20:59 Last Admin: 07/13/19 20:37 Dose: 1.5 mls/min Documented by: Ketorolac Tromethamine (Toradol) 30 mg IV Q6H PRN PRN Reason: Pain Stop: 07/16/19 13:01 Last Admin: 07/13/19 16:51 Dose: 30 mg Documented by: Lactulose (Chronulac) 20 gm PO TID PRN PRN Reason: Constipation Stop: 08/12/19 20:59 Last Admin: 07/13/19 18:02 Dose: 20 gm Documented by: Magnesium Hydroxide (Milk Of Magnesia) 30 ml PO Q6H PRN PRN Reason: Constipation Stop: 08/12/19 09:12 Last Admin: 07/13/19 20:49 Dose: 30 ml Documented by: Ondansetron HCl (Zofran) 4 mg IV Q4H PRN PRN Reason: Nausea Stop: 08/08/19 09:46 Oxycodone/Acetaminophen (Percocet 5mg/325mg) 2 tab PO Q4H PRN PRN Reason: Pain Stop: 07/23/19 13:59 Last Admin: 07/12/19 11:25 Dose: 2 tab Documented by: Polyethylene Glycol (Miralax Powder Packet) 17 gm PO DAILY [facility] Stop: 08/12/19 08:59 Last Admin: 07/13/19 08:55 Dose: 17 gm Documented by: Sodium Biphosphate/Sodium Phosphate (Fleet Enema) 132 ml ID DAILY PRN PRN Reason: Constipation Stop: 08/12/19 09:12 Last Admin: 07/13/19 13:49 Dose: 132 ml Documented by: PG Care Time/CCT Total # of Minutes Spent Total Time Spent: 45 Total Time Spent with Patient: Total time spent is greater than 50% in coordination of care (as documented) at patient's floor/unit and/or counseling patient: Coding Level of Care Code 40439 Subseq Hosp Care Lvl 3 Diagnoses Acute radicular low back pain M54.16 Paresthesia of left lower extremity R20.2 Pelvic mass R19.00 Obese E66.9 Constipation K59.00 Elevated WBC count D72.829
--- NOTE | 2019-07-13 16:13 | XRay Report ---
KUB CLINICAL HISTORY: Vomiting. Generalized abdominal pain. FINDINGS: 2 AP supine abdominal radiographs are correlated with abdominal CT dated 07/09/2019. There is a nonobstructed abdominal bowel gas pattern. Residual enteric contrast is noted in the distal colon. No evidence of intraperitoneal free air is seen. Mild to moderate fecal retention is noted. There ar e no abnormal abdominal calcifications. A density in the pelvis corresponds to the patient's known cy stic mass lesion. The bony structures appear intact. The lung bases are clear as imaged. IMPRESSION: Nonobstructed abdominal bowel gas pattern. Electronically signed by: Ryan Flynn M.D. 07/13/2019 4:12 PM
[2019-07-13] MEDS ORDERED: LACTULOSE SYRUP 20 GM/30 ML UDC PO PRN (16:18)
[2019-07-13 16:22] LABS: Albumin Level 3.3 gm/dl (3.4-5.0); Calcium 8.3 mg/dl (8.5-10.1); Creatinine Clr Calc Pharmacy 126.9 ml/min; Est GFR (African American) 114.4; Est GFR (Non-African American) 98.7; Potassium 4.5 mmol/L (3.5-5.1)
[2019-07-13 16:25] LABS: Albumin Globulin Ratio 0.9 (0.9-2); Bilirubin,Total 0.3 mg/dl (0.2-1); Globulin 3.7 gm/dl (2.5-4.0)
[2019-07-13] MEDS: SODIUM CHLORIDE 0.9% 1000ML 1,000 ML IV SCH (16:51)
[2019-07-13] MEDS: KETOROLAC 30 MG/ML VIAL IV PRN (16:51)
[2019-07-13] MEDS: HYDROmorphone INJ 1 MG/ML SYRINGE IV PRN (21:42)
[2019-07-13] MEDS ORDERED: ALPRAZolam 0.5 MG TABLET PO STA (22:31)
[2019-07-14 00:04] VITALS: PULSE 85
[2019-07-14] MEDS: SODIUM CHLORIDE 0.9% 1000ML 1,000 ML IV SCH (00:05)
[2019-07-14 07:53] VITALS: BP 143/84; TEMP 98.6; O2SAT 98
--- NOTE | 2019-07-14 08:45 | Pain Management Consultation ---
Date of Consultation July 14, 2019 Assessment & Plan (1) Lumbar radiculopathy: Present on Admission?: Yes (2) Lumbar disc herniation: Present on Admission?: Yes (3) Pelvic mass: 1. Due to the patient's pelvic mass we would defer pursuing lumbar ALMAS at this time. Would recommend definitive treatment of the pelvic mass prior to pursuing ALMAS procedure. 2. Maintain gabapentin 400 mg 3 times daily and consider progression to 600 mg 3 times daily 3. Patient may continue with as needed use of Percocet for breakthrough pain. Patient has had limited use of any opiates over the past 24 hours. Present on Admission?: Yes History of Present Illness Reason for Consultation: Left lower extremity radicular pain Requesting Physician: Neftali Joseph DO Attending Physician: Vikram Adame History of Present Illness Mrs. Moss is a 24-year-old obese white female who was admitted due to intractable left lower extremity radicular pain. Patient has been experiencing low back and left lower extremity pain over the past few months and was found to have a bulging disc at the L5 and S1 level on the left side per MRI of the lumbar spine April 2019. Her pain was treated initially with opiates with reported gradual symptomatic improvement but then worsening over the past few weeks. She was evaluated by [facility] and ALMAS was scheduled for early next week. Patient also has history of a large pelvic cystic mass which has been evaluated locally in the April 2019 timeframe and was referred to [facility] who had planned for surgical removal tomorrow on 07/15/2019. Patient is indicating leg pain 70% and back pain 30%. Her current pain is a 6/10 ranging between a 4-8/10. Patient was reporting some abdominal discomfort over the past 24 hours due to constipation which has resolved after multiple BMs last evening. She describes her left lower extremity pain as shooting and sharp and burning in characteristic traveling in an S1 distribution to the foot. She reports some paresthesias in the perineal region over the past few days which she reports is a new complaint. She denies any bowel or bladder incontinence. The patient denies any overt weaknesses, footdrop or episodes of falling. She denies right lower extremity radicular pain or paresthesias. She currently denies abdominal pain or fullness. Patient has no further constitutional complaints at this time. Plan of care discussed with Dr. Grossman. Pain Assessment Full Body Front + Back: 1. Left lower extremity S1 radicular pain to foot 2. Axial low back pain Pain scale - at its best (0-10): 4 Pain scale - at its worst (0-10): 8 Allergies Allergy/AdvReac Type Severity Reaction Status Date / Time pollen extracts Allergy Intermediate congestion Verified 07/09/19 03:08 tramadol AdvReac Unknown hallucinate Verified 07/09/19 03:08 Home Medications Home Medications Medication Instructions Recorded Confirmed Type gabapentin 300 mg PO TID 07/05/19 07/09/19 History ibuprofen 200 - 600 mg PO DIRECTED PRN 07/05/19 07/09/19 History ketorolac 10 mg PO QID PRN 07/09/19 07/09/19 History metronidazole 500 mg PO Q12 07/09/19 07/09/19 History Pain History Pain Intensity Pain scale - at its best (0-10): 4 Pain scale - at its worst (0-10): 8 Patient History Medical History Anxiety disorder (Chronic) Depression (Chronic) Migraine Rectal bleeding (Inactive) Umbilical fistula Surgical History History of tonsillectomy (Resolved) Family History Father Diabetes Grandmother Diabetes Grandfather Diabetes Uncle Diabetes Aunt Diabetes Denies family history of Ovarian cancer Prostate cancer Myocardial infarction Breast cancer Colorectal cancer Social History Preferred Language: Portuguese Communication Ability: Effective Visual Impairment: No Limitations Hearing Ability: Normal Alum Operator Required: No Beliefs That Will Affect Care: None marital status: Single Current Living Situation: Family current occupational status: employed current occupation: [employer] Other Information That Helps Us Care for You: No Feels Safe at Home: Yes Safety Concerns: Feels Safe At This Time Smoking Status: Current every day smoker Tobacco Type: cigarettes ; Cigarettes Per Day: 5 ; Do You Dip or Chew Tobacco: No ; Second Hand Exposure: Yes ; Tobacco Cessation Education Requested by Patient: No Hx Alcohol Use: No Hx Substance Use: No caffeine: Yes (coffee) Physical Activity Frequency: Does not Exercise Seatbelt Use: always Sunscreen Use: No Physical Exam Physical Exam: General: Patient sitting quietly in exam room in no acute distress. Speech and thought process appropriate. Mood and affect appropriate. Cognition intact. Patient obese and physically deconditioned. Patient lying in the left lateral decubitus position. Head: Normocephalic and atraumatic. ENT: No evidence of nasal or oral mucosal lesions. Mucous membranes are moist. Eyes: Pupils equal round reactive to light. Abdomen: Soft and nondistended. No organomegaly. Bowel sounds active. Some generalized tenderness to palpation without rebound or guarding. Patient resistant to abdominal examination. Back/spine: Complete loss of lumbar lordosis. Diffuse generalized tenderness over the lumbosacral region bilaterally and equal. No focal midline, facet joint or SI joint tenderness. No appreciable myoneural trigger points or spasm. Lower extremities: SLR positive on the left and negative on the right. There appears to be some mild atrophy of the left lower extremity when compared to the right. Strength testing 4/5 in the left with dorsiflexion, plantarflexion and EHL testing. Strength testing 5/5 in the right. Sensation was intact bilaterally to sharp and dull without focal deficit. Neurologic: Cranial nerves grossly intact. Ambulatory function not witnessed. Results Diagnostic Review MRI: non enhanced and reports reviewed MRI Findings: RAFA MOSS 24 F 1995 [place], [place] [phone] Magnetic Resonance Report Patient: RAFA MOSS JAdmit Date: 07/09/19 MR#: [id number]: [address] Acct ID:[id number]: [address] Date: 1995[facility] Zip: [place] [address] Age: 24Location: 3W Sex: F Room/Bed: [facility] Att Phy: Neftali Joseph D.O.Diagnosis: INTRACTABLE BACK PAIN,DISC HERNIATION Alena Phy: Allie Jefferson MDService Date: 07/12/19 Fam Phy:Interpreting Phy: Lebron Jose MD Admit Phy: Nefatli Joseph D.O. Ordering Phy: Neftali Joseph D.O. cc: ~ MR lumbar spine wo con CLINICAL HISTORY: 24 years-old Female presenting with Saddle anesthesia, urinary retention, low back pain, left radiculopathy with pain radiating to the toes, pelvic mass, unsteady gait. TECHNIQUE: Multisequence, multiplanar MR imaging of the lumbar spine was performed without the use of intravenous contrast. IV contrast: None. COMPARISON: MR from 03/31/[address] from 07/09/2019. FINDINGS: Localizer images: Cystic abdominopelvic mass measuring 17.6 x 12.0 x 16.2 cm as on prior exam. Slight straightening of normal lumbar lordosis. The spinal canal is narrow on a developmental basis. Fatty endplate changes noted at L4-5 and L5-S1 as on prior exam. Vertebral bodies otherwise maintain normal height, alignment, and bone marrow signal intensity. Intervertebral disc desiccation from L3-4 through L5-S1 with multilevel annular fissures and disc bulges. A level by level analysis is given below: L1-2: No significant spinal canal or neural foraminal narrowing. L2-3: No significant spinal canal or neural foraminal narrowing. L3-4: Disc bulge with central disc protrusion in the setting of an annular fissure. This results in moderate focal central effacement of the ventral thecal sac. There is also mild bilateral neural foraminal narrowing. Findings are unchanged. L4-5: Disc bulge with annular fissure and a superimposed central disc protrusion resulting in moderate effacement of the ventral thecal sac centrally. The disc protrusion has 4 mm of caudal migration, stable to minimally progressed from prior. Abutment of the bilateral transiting L5 nerve roots may be present. Mild to moderate right and moderate left neural foraminal narrowing as on prior. L5-S1: Disc bulge with superimposed disc protrusion along the left posterolate ral aspect. This results in severe focal effacement of the left aspect of the ventral thecal sac, left lateral recess, and left neural foramen. There is mass effect on the transiting left S1 nerve root. This appears to spare the exiting left L5 nerve root. There may also be a disc extrusion with caudal migration along the left lateral aspect of the thecal sac (series 7 image 24; series 2 image 8). This is similar to prior. Spinal cord terminates in good position at T12. Cauda equina normal morphology apart from crowding as mentioned. No paraspinal muscle edema. Visualized portion of the sacrum intact. Flow voids within the vasculature preserved. IMPRESSION: 1. Similar findings as on prior MR with a congenitally narrow spinal canal and discogenic degenerative change from L3-4 through L5-S1, most severe at L5-S1. 2. Mass effect on the transiting left S1 nerve root at the level of the disc protrusion/extrusion at L5-S1. 3. Lesser degenerative changes as detailed above. 4. Cystic abdominopelvic mass. Please correlate with gynecologic consultation. ACT 112: Negative or not required by law. Electronically signed by: Lebron Jose M.D. 07/12/2019 5:[address]: non enhanced and reports reviewed CT Findings: RAFA MOSS 24 F 1995 [facility], [place] [phone] CT Scan Report Patient: RAFA MOSS JAdmit Date: 07/09/19 MR#: [id number]: [address] Acct ID:[id number]: [address] Date: 1995[facility] Zip: [place] [address] Age: 24Location: ED Sex: F Room/Bed: Att Phy:Diagnosis: PAIN IN LEFT LEG Alena Phy: Allie Jefferson MDService Date: 07/09/19 Fam Phy:Interpreting Phy: Marcus Franklin MD Admit Phy: Ordering Phy: Vasile Rizo PA-C cc: ~ CT OF THE LUMBAR SPINE CLINICAL HISTORY: Back pain. COMPARISON STUDY: Lumbar spine MRI March 31, 2019. TECHNIQUE: Helical axial images of the lumbar spine were obtained. Sagittal and coronal reconstructions were viewed. Automated exposure control was utilized for the study. A dose lowering technique was utilized adhering to the principles of ALARA. FINDINGS: For purposes of numbering on this exam, the L5-S1 disc space is assigned to axial image 318 of 370. Vertebral body heights are maintained. There is no fracture or suspicious lesion. The large cystic pelvic mass is better depicted on CT of the abdomen and pelvis which will be reported separate. There is moderate disc space narrowing at L4-L5 and L5-S1. The central canal and neural foramen are suboptimally assessed by CT. A large left paracentral disc extrusion at L5-S1 is noted which results in marked narrowing of the left lateral recess. There is moderate narrowing of the central canal and left lateral recess at L4-L5 due to disc bulge with left paracentral disc protrusion. There is mild disc bulge with small central disc protrusion at L3-L4. IMPRESSION: 1. No acute lumbar spine fracture or subluxation. 2. Large left paracentral disc extrusion at L5-S1 that results in severe narrow ing of the left lateral recess, similar to MRI of March 31, 2019. 3. Moderate narrowing of the central canal and left lateral recess at L4-L5 due to disc bulge and small left paracentral disc protrusion. 4. Mild disc bulge and small central disc protrusion at L3-L4. 5. Large cystic pelvic mass, better depicted on CT of the abdomen and pelvis. ACT 112: Negative or not required by law. Electronically signed by: Marcus Franklin M.D. 07/09/2019 9:15 AM Dictated: 07/09/19 0812 Transcribed: 07/09/[address] [facility] [place] [phone] CT Scan Report Patient: RAFA MOSS Date: 07/09/19 MR#: [id number]: [address] Acct ID:[id number]: [address] Date: 1995[facility] Zip: [place] [address] Age: 24Location: ED Sex: F Room/Bed: Att Phy:Diagnosis: PAIN IN LEFT LEG Alena Phy: Allie Jefferson MDService Date: 07/09/19 Fam Phy:Interpreting Phy: Marcus Franklin MD Admit Phy: Ordering Phy: Vasile Rizo PA-C cc: ~ CT OF THE ABDOMEN AND PELVIS WITH CONTRAST CLINICAL HISTORY: low back pain, cannot eat, emesis, abd pain. MASS COMPARISON STUDY: Pelvic ultrasound June 26, 2019. CT of the abdomen and pelvis July 05, 2019. TECHNIQUE: Following IV administration of 92 mL of Optiray-320, axial images of the abdomen and pelvis were obtained from the lung bases to the proximal femurs. Images were reviewed in the axial, sagittal, and coronal planes. IV contrast was administered without complication. Automated exposure control was utilized for the study. A dose lowering technique was utilized adhering to the principles of ALARA. CT DOSE: 1527.94 mGy.cm FINDINGS: Oral contrast from prior CT is noted within the colon and rectum. No pneumatosis, free air or portal venous gas is present. Fatty infiltration of the liver is noted. Spleen, adrenal glands, kidneys and pancreas are unremarkable. There is no biliary or pancreatic ductal dilatation. There is no hydronephrosis. The appendix is normal. There is no evidence for a bowel obstruction. A cystic 17.1 x 16.7 x 13.9 cm central pelvic mass is again noted no mural nodularity or septations are identified by CT. There is no ascites. This abuts both ovaries. This is likely ovarian in etiology but is difficult to determine with certainty which ovary this arises from. This is unchanged since CT of July 05, 2019. No peritoneal nodules are noted. No suspicious osseous lesions are present. A 3 cm hypodense right ovarian lesion favors a dominant follicle or cyst. IMPRESSION: 1. No change in a 17.1 x 16.7 x 13.9 cm cystic pelvic mass since prior CT. This abuts both ovaries and is likely ovarian in etiology but it is difficult to determine with certainty ovary this arises from. No complexity by CT however gynecologic consultation for consideration for resection is recommended given the size. 2. No acute process within the abdomen or pelvis. Normal appendix. No bowel obstruction. 3. 3 cm dominant follicle/cyst within the right ovary. 4. Fatty infiltration of the liver. ACT 112: Negative or not required by law. Electronically signed by: Marcus Franklin M.D. 07/09/2019 6:57 AM Dictated: 07/09/19 0649 Transcribed: 07/09/19 0649 Previous Records Review Previous Records: personally reviewed by me
[2019-07-14] MEDS: DOCUSATE SODIUM 100 MG CAP PO SCH (08:52)
[2019-07-14] MEDS: POLYETHYLENE (MIRALAX) 17 GM PACK PO SCH (08:52)
[2019-07-14] MEDS: methylPREDNISolone 40 MG in SYRINGE 0 ML IV SCH (08:53)
[2019-07-14] MEDS: GABAPENTIN 400 MG CAP PO SCH ×2 (08:53→13:57)
--- NOTE | 2019-07-14 14:30 | Discharge Summary ---
Date of Service date of admission - July 09, 2019 date of discharge - July 14, 2019 Admission HPI Per Admitting Provider 24 yo female with history of chronic back pain, discovered to have a disc bulge at L5-S1 on the left on MRI of the lumbar spine in April 2019. The pain was treated with narcotics, gradually improved but then started to return and get significantly worse over the past few weeks, really bad the past few days. Moving her left leg, ambulating, changing positions makes the pain worse. She will get some relief by laying completely still. The pain radiates from her lower spine, into left buttock, into left leg all the way down to the foot. She has been experiencing paresthesias in the left leg and foot as well. She has not experienced any weakness in the left leg. No saddle numbness, no bowel or bladder incontinence, reports that she is straining to move bowels and it can be painful. No fever or chills. No recent injuries such as falls, accidents, sudden twisting that could have made the pain worse. The pain was relieved with Dilaudid IV in the ED but only transiently. Also, the patient has a suspicious pelvic mass that needs surgical removal. She is scheduled for appointment with Shiela on Friday 07/14. The mass is not causing her much pain. Principal Diagnosis Left-sided S1 radiculopathy 2nd to herniated disc at L5-S1 Discharge Exam Constitutional + morbidly obese; no acute distress and no altered mental status ENMT external ear and nose normal, oropharynx normal Respiratory normal respiratory effort, lungs clear to auscultation Cardiovascular Rate/Rhythm: regular rate and regular rhythm Heart Sounds: normal S1 and normal S2; no murmur Vessels: posterior tibial pulses present and dorsalis pedis pulses present; no JVD Extremities: no edema Gastrointestinal (Abdomen) normal bowel sounds, soft, nontender, no hepatosplenomegaly Neurologic deep tendon reflexes 2+ bilaterally (patellar) and moves all extremities; no focal motor deficits (strength 5/5 b/l legs) Psychiatric A+Ox3, euthymic affect Discharge Data Allergies Allergy/AdvReac Type Severity Reaction Status Date / Time pollen extracts Allergy Intermediate congestion Verified 07/09/19 03:08 tramadol AdvReac Unknown hallucinate Verified 07/09/19 03:08 Consultations Consult Pain Management Ordered Studies * CT abd pelvis IV con - IMPRESSION: 1. No change in a 17.1 x 16.7 x 13.9 cm cystic pelvic mass since prior CT. This abuts both ovaries and is likely ovarian in etiology but it is difficult to determine with certainty ovary this arises from. No complexity by CT however gynecologic consultation for consideration for resection is recommended given the size. 2. No acute process within the abdomen or pelvis. Normal appendix. No bowel obstruction. 3. 3 cm dominant follicle/cyst within the right ovary. 4. Fatty infiltration of the liver. * CT lumbar spine wo con * MR lumbar spine wo con - IMPRESSION: 1. Similar findings as on prior MR with a congenitally narrow spinal canal and discogenic degenerative change from L3-4 through L5-S1, most severe at L5-S1. 2. Mass effect on the transiting left S1 nerve root at the level of the disc protrusion/extrusion at L5-S1. 3. Lesser degenerative changes as detailed above. 4. Cystic abdominopelvic mass. Please correlate with gynecologic consultation. Hospital Course (1) Acute radicular low back pain: 2nd to left sided disc protrusion at L5-S1 with pressure on S1 nerve root. Also with known central canal narrowing at L3-L4. Presented with severe radicular pain and paresthesias down left leg. Was scheduled for epidural injection with [facility] on Thursday 07/13 but could not wait until then due to escalating pain. Repeat MRI Lumbar spine 07/11 again showed the L5-S1 herniation with compression of S1 nerve root. No significant change, no evidence of cauda equina syndrome. Patient was treated with combination of IV steroids, NSAIDs, increased dose of gabapentin, and narcotics. Seen by pain management - they advised treatment of the large pelvic cyst/mass FIRST. If following the surgical removal of the cyst/mass she continues with radicular pain in the left leg then outpatient epidural injection would be considered. In the 24 hours prior to discharge the patient's pain was reasonably controlled and she was able to ambulate on the med/surg unit without difficulty. At discharge she was given a 3-day course of oral decadron, increased gabapentin dose of 400mg TID, and given a limited number of percocet for breakthrough pain. She was advised to avoid NSAIDs due to upcoming gynecological surgery at [facility] for her pelvic mass. (2) Paresthesia of left lower extremity: due to known disc protrusion at L5-S1 causing pressure on left-sided S1 nerve root symptoms extend into left foot treated with IV Solu Medrol, neurontin (400mg TID), Dilaudid prn, NSAIDs prn see above in "acute radicular back pain" no motor deficits on physical exam during this stay (3) Pelvic mass: Was evaluated at [facility] in the previous weeks for such. Dr Sadi Sequeira plans surgical intervention on Sunday07/15/19. It was unclear if this cystic mass was contributing to her pelvic, buttock, and leg symptoms. Either way she will travel to [place] on 07/15/19 for gynecological surgery. See CT abd/pelvis report for dimensions of this mass. (4) Obese: BMI 41.7 (5) Constipation: severe. 2nd to copious narcotics. cannot rule out that large pelvic mass is causing colonic compression leading to worsening symptoms. constipation improved with extensive bowel regimen; even received dose of relistor. at discharge I recommended miralax with senna for maintenance. (6) Elevated WBC count: due to steroids of note she was on Prednisone at time of this hospital admission and continued to receive steroids while hospitalized 07/05/2019 - WBC 21 07/09/2019 - WBC 17 07/13/2019 - WBC 22 never had fever or any symptoms of infection during this stay should have repeat CBC within a few days of discharge to ensure stability of WBC count Total Time Total Time Spent Total Time Spent (In Minutes): 40 Total Time Includes: Examination of the Patient, Discharge Planning and Medication Reconciliation Discharge Plan Discharge Items Patient Disposition: Home - Self-Care Reason For Visit: INTRACTABLE BACK PAIN, HERNIATED DISC Discharge Diagnosis: 1. severe left-sided buttock/leg pain due to herniated disc pushing on S1 nerve 2. large pelvic cyst Condition on Discharge: Good Activity: As commented below Activity Comment: no strenuous activities; light activities are fine Lifting: No more than 10 pounds Exercise/Sports: Wait until after follow-up appointment Driving/Machine Use: no driving while taking narcotic pain killer medication Non-emergency contact: Primary Care Provider and Specialist Call non-emergency contact if: you have any medication questions, your symptoms worsen, your pain is not controlled, your pain is worsening and you have a fever Follow-up/Referrals: Breanna Blood DO [Physician] - (see [facility] within 1-2 weeks) Allie Jefferson MD [Primary Care Provider] - 07/17/19 1:30 pm (see Dr Jefferson within 1 week ) Diet: Regular Addtl Attending Provider Instructions: You were treated for severe back, left buttock, and left leg pain due to herniated disc in your lumbar spine. This disc herniation ("bulging disc or slipped disc") is pinching your left S1 nerve causing the nerve pain in your left buttock, leg and foot. Your pain gradually improved with steroids, pain meds, and increased dose of gabapentin. The pelvic mass/cyst may also be contributing to your pain and may also be contributing to your bowel and bladder issues. Recommendations - 1. oxycodone-acetaminophen, 1-2 tabs every 4 hours as needed for pain. * note that this is a narcotic pain killer medication and can cause drowsiness and constipation * NO DRIVING while taking the oxycodone * NO DRINKING ALCOHOL while taking the oxycodone * since this medication contains Tylenol do not take extra [id number] tylenol 2. dexamethasone 4mg once daily for 3 days starting 07/15/2019; check with Thad cabrera to make sure they are ok with you taking this tomorrow on 07/14. Note that your last dose of IV steroids at [facility] was at 9am on 07/14/2019. 3. increase your gabapentin to 400mg three times a day. 4. DO NOT TAKE any aspirin, motrin, ibuprofen, toradol (ketoralac), naprosyn, etc due to your upcoming surgery for the pelvic cyst/mass. 5. Constipation - for prevention/treatment - * take [id number] miralax once daily * take senna (senakot) 2 tabs daily Follow-up -- see separate section. In addition - report to [facility] tomorrow if your surgery is indeed still scheduled for your pelvic cyst. Of note - your white blood cell count (WBC Count) has been elevated at [facility] likely due to your steroid use for your back. Levels - WBC count on 07/08 was 17 WBC count on 07/12 was 22 Return to [facility] if -- * you have fever over 100.5 degrees * you have worsening back or leg pain despite your medications * you have the inability to move your bowels or your bladder * you have worsening numbness of either leg * you have difficulty walking * any other concerns Pending Studies at Discharge: No Stand-Alone Forms: [facility], Opioid Pain Management, Smoking Cessation Medications and DC Order Prescriptions: New oxycodone-acetaminophen [Percocet] 5-325 mg Tablet 1 - 2 tab PO Q4H PRN (Reason: pain) Qty: 20 RF: 0 dexamethasone [Decadron] 4 mg tablet 4 mg PO DAILY 3 Days Qty: 3 RF: 0 gabapentin 400 mg capsule 400 mg PO TID Qty: 60 RF: 0 Continued metronidazole 500 mg tablet 500 mg PO Q12 RF: 0 Discontinued ibuprofen 600 mg Tablet 200 - 600 mg PO DIRECTED PRN (Reason: pain/fever) RF: 0 ketorolac 10 mg tablet 10 mg PO QID PRN (Reason: Pain) RF: 0 Discharge Orders: Discharge Order (Routine); Ordered 07/14/19 Ordered By: Vikram Adame Admission Data Admit Date/Time: 07/09/19 08:52 Attending Provider: Vikram Adame Admit Provider: Neftali Joseph Primary Care Provider: Allie Jefferson Other Providers: Neftali Joseph ; Breanna Blood Other Interventions: Discharge Summary Assessment (RN) Last Done: 07/14/19 14:22 DC Date/Time DO NOT enter until pt leaves facility: 07/14/19 16:18 Coding Level of Care Code D/C Day Management >30 mins Diagnoses Acute radicular low back pain M54.16 Paresthesia of left lower extremity R20.2 Pelvic mass R19.00 Obese E66.9 Constipation K59.00 Elevated WBC count D72.829
[2019-07-14] MEDS: KETOROLAC 30 MG/ML VIAL IV PRN (15:24)
[2019-07-14] MEDS: OXYCODONE/ACETAMINOPHEN 5mg/325mg TAB PO PRN (15:24)
== END 2019-07-14 16:18 | disposition home or self-care (01) ==
LOC: ED 02:50 → 3W 08:52 → INTOOBSV 08:52 → SUATTDRO 08:52 → 3W 09:41

== ENCOUNTER 2019-07-28 11:50 | Inpatient (IN) ==
[~2019-07-28 11:50] MED LIST changes: +CEFAZOLIN 2000MG 2,000 MG/15 ML SYR IV SCH; -CIPR-255 PO
[2019-07-28] MEDS ORDERED: LORazepam 1 MG TAB PO PRN (12:59)
[2019-07-28] MEDS ORDERED: ONDANSETRON INJ 2 MG/ML 2 ML VIAL IV PRN (12:59)
[2019-07-28] MEDS ORDERED: PROMETHAZINE HCL 12.5 MG in SODIUM CHLORIDE 0.9% 50 ML IV PRN (12:59)
[2019-07-28] MEDS ORDERED: ONDANSETRON 4 MG OD TAB PO PRN (12:59)
[2019-07-28] MEDS ORDERED: ACETAMINOPHEN 500 MG TAB PO PRN (12:59)
[2019-07-28] MEDS ORDERED: LORazepam 1 MG/2 ML VIAL IV PRN (12:59)
[2019-07-28] MEDS ORDERED: METOCLOPRAMIDE HCL INJ 5 MG/ML 2 ML VIAL IV PRN (12:59)
--- NOTE | 2019-07-28 13:15 | History & Physical Report ---
Date of Service July 28, 2019 Assessment & Plan (1) Lumbar disc herniation: Patient's case has been reviewed with Dr. Briones. We have decided to admit the patient for pain control. We will plan for urgent surgical decompression fusion L4-5, L5-S1 dated 07/29/2019. All risks benefits pros cons and she is comfortable with proceeding with above-mentioned surgical planning. Terms outlined in detail with the patient. All questions have been answered. History of Present Illness Is a pleasant 24-year-old female that we are asked to see in consultation in the emergency room today. Patient is a known patient to our practice. She was evaluated last week in our outpatient office. Over the past week or 2 she has had a progressive decline. She presents today to the ER complaining of bilateral lower extremity numbness, pain, perineum numbness. She notes loss of control of bowel or bladder for the past week or 2. She states basically she has been sedentary because of her lower extremity numbness and weakness. She has had a recent ovarian cyst removed in [place] on July 142019 without incident. Denies any recent fevers or chills. Primary Care Provider: Allie Jefferson MD Allergies Allergy/AdvReac Type Severity Reaction Status Date / Time pollen extracts Allergy Intermediate congestion Verified 07/28/19 12:23 morphine AdvReac Intermediate "EXTREME Verified 07/28/19 12:23 NAUSEA" tramadol AdvReac Intermediate hallucinate Verified 07/28/19 12:23 Home Medications Home Medications Medication Instructions Recorded Confirmed Type gabapentin 400 mg PO TID #60 cap 07/14/19 07/28/19 Rx alprazolam 0.5 mg tablet 0.5 mg PO BID PRN #10 tab 07/15/19 07/28/19 Rx docusate sodium [Stool Softener] 100 mg PO QDL 07/24/19 07/28/19 History cranberry 0 mg PO QDL 07/28/19 07/28/19 History Past Med/Surg History Medical History Anxiety and depression Asymmetrical deep tendon reflexes (Chronic) Constipation (Chronic) Lumbar disc herniation LEFT LEG/BUTTOCKS NUMBNESS Lumbar radiculopathy Obese (Chronic) Paresthesia of left lower extremity (Chronic) Surgical History Cyst of fallopian tube REMOVED VIA LAP PROCEDURE 07/15/19>DRAINED 2 LITERS OF FLUID H/O ovarian cystectomy History of tonsillectomy (Resolved) Family History Father Diabetes Grandmother Diabetes Grandfather Diabetes Uncle Diabetes Aunt Diabetes Denies family history of Ovarian cancer Prostate cancer Myocardial infarction Breast cancer Colorectal cancer Social History Preferred Language: Macedonian Communication Ability: Effective Visual Impairment: No Limitations Hearing Ability: Normal 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 Beliefs That Will Affect Care: None marital status: Single Current Living Situation: Parent current occupational status: employed current occupation: [employer] Feels Safe at Home: Yes Safety Concerns: Feels Safe At This Time Smoking Status: Current some day smoker Tobacco Type: cigarettes ; Cigarettes Per Day: 3 ; Second Hand Exposure: Yes ; Hx Alcohol Use: No Hx Substance Use: No caffeine: Yes (coffee) Physical Activity Frequency: Does not Exercise Seatbelt Use: always Sunscreen Use: No Review of Systems Review of Systems: All systems reviewed & are unremarkable except as noted in HPI & below Physical Exam Physical Exam: Patient seen in B3 in the emergency room. She is lying supine. She is moderately uncomfortable. Alert and oriented x3. Lower extremities breakaway weakness over bilateral EHL, dorsiflexion, plantarflexion. Quadricep and hamstring strength is intact. Unable to ambulate due to considerable weakness. Constitutional: well developed and + acute distress Eyes: normal visual garcia by confrontation ENMT: external ear and nose normal, oropharynx normal Neck: normal visual inspection Respiratory: normal respiratory effort Cardiovascular: Vessels: dorsalis pedis pulses present Extremities: normal capillary refill Gastrointestinal (Abdomen): Inspection/Auscultation: abdomen normal to inspection Musculoskeletal: Extremities: extremities normal to inspection and + abnormal strength Skin: no rashes, warm and dry Neurologic: moves all extremities and + focal motor deficit Psychiatric: A+Ox3, euthymic affect Results & Data Vital Signs (Past 12 Hours) Vital Signs Temp Pulse Resp BP Pulse Ox 07/28/19 11:53 36.8 C 95 H 16 125/68 98 Supervising Physician Co-Signing Physician Notes Dr. Ronnie Briones
[2019-07-28 13:31] LABS: Basophils # (auto) 0.02 K/uL (0-0.2); Basophils % (auto) 0.2 %; Eosinophils # (auto) 0.43 K/uL (0-0.5); Eosinophils % (auto) 3.8 %; Hematocrit (blood only) 39.5 % (37-47); Hemoglobin 13.1 g/dL (12.0-16.0); Immature Granulocytes # (auto) 0.02 K/uL (0.00-0.02); Immature Granulocytes % (auto) 0.2 %; Lymphocytes # (auto) 3.09 K/uL (1.2-3.4); Lymphocytes % (auto) 27.2 %; Mean Corpuscular Hemoglobin 29.8 pg (25-34); Mean Corpuscular Hgb Conc 33.2 g/dL (32-36); Mean Corpuscular Volume 89.8 fL (80-100); Mean Platelet Volume 10.6 fL (7.4-10.4); Monocytes # (auto) 1.12 K/uL (0.11-0.59); Monocytes % (auto) 9.9 %; Neutrophils # (auto) 6.66 K/uL (1.4-6.5); Neutrophils % (auto) 58.7 %; Platelet Count 273 K/uL (130-400); RDW Coefficient of Variation 13.3 % (11.5-14.5); RDW Standard Deviation 44.4 fL (36.4-46.3); White Blood Count 11.34 K/uL (4.8-10.8)
--- NOTE | 2019-07-28 13:31 | Emergency Department Note ---
ED Provider Note CHIEF COMPLAINT: Bilateral leg numbness, bowel and bladder incontinence x2 to 3 days HISTORY OF PRESENT ILLNESS: Patient is a 24-year-old female with known lumbar disc herniation who presents the emergency department for evaluation of worsening leg and perineal numbness and bowel and bladder incontinence over the last 2 to 3 days. Patient reports that she is scheduled for lumbar decompression and fusion with Dr. Briones tomorrow, but she could not wait due to her worsening symptoms. She states that primarily her pain was in her low back and in her left leg with associated numbness, but in the last couple of days the numbness has now spread into the right leg. She also reports increased numbness in the perineal area and states that since Sunday, she has had constant leakage of bowel and bladder. She is wearing an adult depends. She has been taking gabapentin for her symptoms. She was told to discontinue NSAIDs secondary to her upcoming surgery. She is not currently on narcotics or steroids. She has been using cranberry pills and a stool softener. She states I "could not do anything yesterday." She is concerned that she is going to fall. She reports that she can move her legs but they feel weak and she is having difficulty getting around at home. She rates her back discomfort a 9/10. She denies any dysuria or hematuria. No fever or chills. The patient did undergo laparoscopic gynecologic surgery performed by Dr. Sequeira at [place] on 07/15/2019, she reports that they removed "2 L of fluid," her left fallopian tube and a right ovarian cyst. She does not have follow-up with them until mid August. She has not heard anything from the surgical team and does not believe that the situation involves any malignancy, which was originally suspected based on imaging from here. REVIEW OF SYSTEMS: Review of systems as per HPI. All other systems reviewed were negative. 10 systems reviewed. PMH: Electronic medical records are reviewed and summarized as above/below. See Problem List. SOCIAL HISTORY: Patient lives at home. 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 Smoker. PHYSICAL EXAM: Vital Signs: Reviewed Nurse's notes. CONSTITUTIONAL: Patient is an obese 24-year-old female who is awake and alert and laying semiupright on the gurney in moderate distress due to their stated complaint. There is moderate discomfort with position changes. HEENT: Normocephalic, atraumatic. Pupils equal, round, reactive to light and accommodation. EOMs intact without nystagmus. Sclera are anicteric. Tympanic membranes intact, with normal landmarks. External canals are clear. Oral and nasopharynx are clear. Mucous membranes are moist. CARDIOVASCULAR: Regular rate and rhythm. Peripheral pulses easily palpable. RESPIRATORY: Breath sounds equal and clear to auscultation. ABDOMEN: Bowel sounds are present. Well-healing laparoscopic surgical scars. Abdomen is soft, nontender and nondistended. INTEGUMENTARY: No lesions or rash, normal skin turgor. LYMPH: No lymphadenopathy. SPINE: Examination of the patient's back does not demonstrate any ecchymosis, abrasions or outward signs of trauma. No erythema, increased warmth or induration. Patient has midline discomfort to palpation over the low lumbar spine. There is no pain over the SI joint or the sciatic notch. He has increased pain with range of motion including rotation and flexion. EXTREMITIES: Leg lengths are symmetrical. Negative logroll bilaterally. She has diminished strength to great toe and ankle dorsi-flexion and plantar flexion, and and flexion and extension of the knees, 3/5. Lower extremity DTRs are diminished bilaterally, 1+ on the right, 0 on the left. Distal pulses are easily palpable. Sensation light touch is diminished over the lower extremities bilaterally. EMERGENCY DEPARTMENT COURSE: The patient was seen and assessed as above. Old records were reviewed. I am familiar with the patient from her visit from Fall 2018. As she has had worsening symptoms acutely over the last couple of days, I did elect to contact her surgical team. Patient was seen and assessed in the emergency department by Glenna Reyes PA-C, with Dr. Briones, and they have elected to admit her with plans for surgical intervention as originally scheduled tomorrow. Please refer to orthopedic spine H&P and admission orders for further information. Patient has known lumbar disc herniation and stenosis, she has had chronic numbness, weakness and diminished reflexes over the last several months, she has had bowel and bladder symptoms for some time, but they have worsened. I do not suspect epidural abscess or hematoma. Impression & Plan Ambulatory dysfunction, Lumbar disc herniation Admission to orthopedic spine surgical service for surgical intervention. Past Med/Surg History Medical History Anxiety and depression Asymmetrical deep tendon reflexes (Chronic) Constipation (Chronic) Lumbar disc herniation LEFT LEG/BUTTOCKS NUMBNESS Lumbar radiculopathy Obese (Chronic) Paresthesia of left lower extremity (Chronic) Surgical History Cyst of fallopian tube REMOVED VIA LAP PROCEDURE 07/15/19>DRAINED 2 LITERS OF FLUID H/O ovarian cystectomy History of tonsillectomy (Resolved) Family History Father Diabetes Grandmother Diabetes Grandfather Diabetes Uncle Diabetes Aunt Diabetes Denies family history of Ovarian cancer Prostate cancer Myocardial infarction Breast cancer Colorectal cancer Social History Preferred Language: Italian Communication Ability: Effective Visual Impairment: No Limitations Hearing Ability: Normal 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 Beliefs That Will Affect Care: None marital status: Single Current Living Situation: Parent current occupational status: employed current occupation: [employer] Feels Safe at Home: Yes Smoking Status: Current some day smoker Tobacco Type: cigarettes ; Cigarettes Per Day: 5 ; Second Hand Exposure: Yes ; Hx Alcohol Use: No Hx Substance Use: No caffeine: Yes (coffee) Physical Activity Frequency: Does not Exercise Seatbelt Use: always Sunscreen Use: No Results & Data (ED) Vital Signs Vital Signs - 24 hr 07/28/19 11:53 Temperature 36.8 C Temperature Source Oral Pulse Rate 95 H Respiratory Rate 16 Respiratory Effort / Characteristics Non-Labored Spontaneous Respiratory Depth Normal Blood Pressure 125/68 Blood Pressure Mean 87 Blood Pressure Position Sitting Pulse Oximetry 98 Oxygen Delivery Method Room Air Sepsis Recent Fever Within 48 Hours No Sepsis Action Taken by Nursing No Action Required Home Medications Current Medication List: was personally reviewed by me Laboratory Data Result diagrams: 07/28/19 13:14 07/28/19 13:14 Lab Results 07/28/19 07/28/19 07/28/19 Range/Units 13:14 13:14 13:14 WBC 11.34 H (4.8-10.8) K/uL RBC 4.40 (4.2-5.4) M/uL Hgb 13.1 (12.0-16.0) g/dL Hct 39.5 (37-47) % MCV 89.8 (80-100) fL MCH 29.8 (25-34) pg MCHC 33.2 (32-36) g/dL RDW Std Deviation 44.4 (36.4-46.3) fL RDW Coeff of Beba 13.3 (11.5-14.5) % Plt Count 273 (130-400) K/uL MPV 10.6 H (7.4-10.4) fL Immature Gran % (Auto) 0.2 % Neut % (Auto) 58.7 % Lymph % (Auto) 27.2 % [place] % (Auto) 9.9 % Eos % (Auto) 3.8 % Baso % (Auto) 0.2 % Immature Gran # (Auto) 0.02 (0.00-0.02) K/uL Neut # (Auto) 6.66 H (1.4-6.5) K/uL Lymph # (Auto) 3.09 (1.2-3.4) K/uL [place] # (Auto) 1.12 H (0.11-0.59) K/uL Eos # (Auto) 0.43 (0-0.5) K/uL Baso # (Auto) 0.02 (0-0.2) K/uL Sodium 139 (136-145) mmol/L Potassium 3.9 (3.5-5.1) mmol/L Chloride 107 (98-107) mmol/L Carbon Dioxide 27 (21-32) mmol/L Anion Gap 5.0 (3-11) BUN 11 (7-18) mg/dl Creatinine 0.70 (0.6-1.2) mg/dl Est Cr Clr Drug Dosing Not Reportable Est GFR ( Amer) 140.5 Est GFR (Non-Af Amer) 121.3 BUN/Creatinine Ratio 15.2 (10-20) Glucose 101 H (70-99) mg/dl Calcium 8.8 (8.5-10.1) mg/dl HCG, Qual Negative (Negative) Imaging Data Radiologist's Impression: Lumbar spine MRI from 07/09/2019: IMPRESSION: 1. Similar findings as on prior MR with a congenitally narrow spinal canal and discogenic degenerative change from L3-4 through L5-S1, most severe at L5-S1. 2. Mass effect on the transiting left S1 nerve root at the level of the disc protrusion/extrusion at L5-S1. 3. Lesser degenerative changes as detailed above. 4. Cystic abdominopelvic mass. Please correlate with gynecologic consultation. Blood Pressure Blood Pressure Findings: Normal blood pressure Blood Pressure Disposition: did not require urgent referral Discharge Plan Visit Data Chief Complaint: Leg Weakness, Bilateral Stated Complaint: LEG NUMBNESS-BILAT ED Provider: Melo Gaston ED Midlevel Provider: Salma Ruiz Discharge Problem: Ambulatory dysfunction, Lumbar disc herniation Patient Disposition: Admitted As Inpatient Forms Stand Alone Forms: [facility] Prescriptions Prescriptions: No Action alprazolam [Xanax] 0.5 mg tablet 0.5 mg PO BID PRN (Reason: anxiety) Qty: 10 RF: 0 docusate sodium [Stool Softener] 100 mg Tablet 100 mg PO QDL RF: 0 cranberry 500 mg Capsule 0 mg PO QDL RF: 0 gabapentin 400 mg capsule 400 mg PO TID Qty: 60 RF: 0 Referrals Referrals: Allie Jefferson MD [Primary Care Provider] -
[2019-07-28 13:46] LABS: Pregnancy Test, Serum Negative (Negative)
[2019-07-28 13:47] LABS: BUN Creatinine Ratio 15.2 (10-20); Blood Urea Nitrogen 11 mg/dl (7-18); Calcium 8.8 mg/dl (8.5-10.1); Carbon Dioxide 27 mmol/L (21-32); Chloride 107 mmol/L (98-107); Est GFR (African American) 140.5; Est GFR (Non-African American) 121.3; Glucose 101 mg/dl (70-99); Potassium 3.9 mmol/L (3.5-5.1); Sodium 139 mmol/L (136-145)
[2019-07-28] MEDS: HYDROCODONE/ACETAMOPHEN 5/325MG TAB PO PRN ×2 (14:04→21:42)
[2019-07-28] MEDS: dexAMETHasone 8 MG in SYRINGE 0 ML IV SCH (15:52)
[2019-07-28] MEDS: LACTATED RINGER'S 1,000 ML IV SCH (16:04)
[2019-07-28] MEDS: HYDROmorphone INJ 1 MG/ML SYRINGE IV PRN (16:04)
[2019-07-28] MEDS ORDERED: ALPRAZolam 0.5 MG TABLET PO PRN (16:57)
[2019-07-28] MEDS: GABAPENTIN 400 MG CAP PO SCH ×2 (19:07→21:43)
[2019-07-29] MEDS: dexAMETHasone 8 MG in SYRINGE 0 ML IV SCH ×2 (00:28→08:48)
[2019-07-29] MEDS: HYDROmorphone INJ 1 MG/ML SYRINGE IV PRN ×3 (03:49→20:51)
[2019-07-29] MEDS: HYDROCODONE/ACETAMOPHEN 5/325MG TAB PO PRN ×2 (04:12→17:30)
[2019-07-29] MEDS: GABAPENTIN 400 MG CAP PO SCH ×4 (08:33→20:06)
--- NOTE | 2019-07-29 09:55 | History & Physical Bridge Note ---
Date of Service July 29, 2019 History & Physical Bridge Note I have examined the patient, reviewed the History & Physical and in the interval since the performance of the History & Physical I have noted the following changes of clinical significance: no changes noted
--- NOTE | 2019-07-29 10:35 | Orthopedic Progress Note ---
Date of Service July 29, 2019 Assessment & Plan (1) Cauda equina syndrome with neurogenic bladder: At this time we are planning an emergent lumbar decompression and fusion L4-5 L5-S1. Risk benefits pros cons and alternatives again outlined in detail. Present on Admission?: Yes Admission and Anticipated Discharge Date Admission Date: July 28, 2019 Subjective Patient continues to note marked decline in status. Throughout the evening she was having overflow incontinence. She now notes complete numbness of the right lower extremity which is progressive since admission yesterday. Physical Exam Physical Exam: On exam she is in obvious distress and significant pain. She has 4/5 strength testing lower extremities. Marked tension signs bilaterally. Dense numbness to the perineal area and lower extremities. Deep tendon reflexes are absent. Results & Data ([facility]) Vital Signs (Past 12 Hours) Vital Signs Temp Pulse Resp BP Pulse Ox 07/29/19 09:36 36.9 C 91 H 18 116/74 94 07/29/19 08:03 36.9 C 91 H 18 116/74 96 07/28/19 23:41 88 97/61 L 07/28/19 23:16 37 C 75 95/60 L 96
[2019-07-29] MEDS ORDERED: ATROPINE SULFATE 0.1 MG/ML 10ML SYR IV PRN (10:37)
[2019-07-29] MEDS ORDERED: ONDANSETRON INJ 2 MG/ML 2 ML VIAL IV PRN ×2 (10:37→15:33)
[2019-07-29] MEDS ORDERED: HYDROmorphone INJ 2 MG/ML SYR/VIAL IV PRN (10:37)
[2019-07-29] MEDS ORDERED: ePHEDrine sulfate 50 MG/ML AMP IV PRN (10:37)
[2019-07-29] MEDS ORDERED: PROMETHAZINE HCL 6.25 MG in SODIUM CHLORIDE 0.9% 50 ML IV PRN (10:37)
--- NOTE | 2019-07-29 10:37 | Anesthesiology Consultation ---
Date of Service July 29, 2019 Smoker Obesity Assessment & Plan (1) Encounter for pre-operative examination: Chart Review Chart Review: Acceptable Risk for Surgery and Patient NOT seen in Pre Admission Testing Consults Requested none ASA ASA2 Proposed Anesthesia Anesthesia Type: General Risk / Benefits Reviewed With: PT / POA / Parent / Guardian, Accepts Plan and Informed Consent Obtained History Surgery Operation Date: 07/29/19 10:05 Proposed Procedures p L4-S1 Decompression and Fusion, Spinal Cord Monitoring - Ronnie Briones DO Height/Weight Height: 5 ft 4 in Weight: 105 kg Allergies Allergy/AdvReac Type Severity Reaction Status Date / Time pollen extracts Allergy Intermediate congestion Verified 07/29/19 10:26 morphine AdvReac Intermediate "EXTREME Verified 07/29/19 10:26 NAUSEA" tramadol AdvReac Intermediate hallucinate Verified 07/29/19 10:26 Medications Home Medications Medication Instructions Recorded Confirmed Last Taken gabapentin 400 mg PO TID #60 cap 07/14/19 07/28/19 07/28/19 alprazolam 0.5 mg tablet 0.5 mg PO BID PRN #10 tab 07/15/19 07/28/19 Unknown docusate sodium [Stool Softener] 100 mg PO QDL 07/24/19 07/28/19 07/27/19 cranberry 0 mg PO QDL 07/28/19 07/28/19 07/27/19 Active Medications Generic Name Dose Route Start Last Admin Trade Name Freq PRN Reason Stop Dose Admin Hydrocodone Bitart/Acetaminophen 1 - 2 tab 07/28/19 12:59 07/29/19 04:12 [place] [facility] 5/325 PO 08/11/19 12:58 2 tab Q4H PRN Administration Moderate-Severe Pain Alprazolam 0.5 mg 07/28/19 16:57 07/29/19 08:38 Xanax PO 08/27/19 16:56 0.5 mg BID PRN Administration anxiety Gabapentin 400 mg 07/28/19 17:30 07/29/19 08:33 Neurontin PO 08/27/19 17:29 400 mg TID DANK Administration Hydromorphone HCl 1 mg 07/28/19 12:59 07/29/19 08:30 Dilaudid IV 08/11/19 12:58 1 mg Q3H PRN Administration severe pain (scale 7-10) Lactated Ringer's 1,000 mls @ 15 mls/hr 07/28/19 13:00 07/29/19 09:31 Lr IV 08/27/19 12:59 0 mls/hr .Q24H DANK Infusion Ondansetron HCl 4 mg 07/28/19 12:59 07/28/19 14:04 Zofran Odt PO 08/27/19 12:58 4 mg Q6H PRN Administration Nausea Ondansetron HCl 4 mg 07/28/19 12:59 07/29/19 03:54 Zofran IV 08/27/19 12:58 4 mg Q6H PRN Administration Nausea &/or Vomiting NPO Date Last Intake of Fluids: 07/28/19 Time Last Intake of Fluids: 22:00 Date Last Intake of Solids: 07/28/19 Time Last Intake of Solids: 22:00 Past Medical History Medical History Anxiety and depression Asymmetrical deep tendon reflexes (Chronic) Constipation (Chronic) Lumbar disc herniation LEFT LEG/BUTTOCKS NUMBNESS Lumbar radiculopathy Obese (Chronic) Paresthesia of left lower extremity (Chronic) Exercise / Class Metabolic Activity II 4-5 Yardwork/Stairs/Walk up hill Past Family History Family History Father Diabetes Grandmother Diabetes Grandfather Diabetes Uncle Diabetes Aunt Diabetes Denies family history of Ovarian cancer Prostate cancer Myocardial infarction Breast cancer Colorectal cancer Past Surgical History Surgical History Cyst of fallopian tube REMOVED VIA LAP PROCEDURE 07/15/19>DRAINED 2 LITERS OF FLUID H/O ovarian cystectomy History of tonsillectomy (Resolved) Past Anesthesia History No Hx of Anesthesia Complications and No Family Hx of Anesthesia Complications History of PONV No Hx of PONV Social History Smoking Status: Current some day smoker tobacco type: cigarettes Smoking cigarettes per day: 3 Hx Alcohol Use: No Hx Substance Use: No substance use type: does not use Physical Exam Vital Signs Last Vital Signs Temp 36.9 C 07/29/19 09:36 Pulse 91 H 07/29/19 09:36 Resp 18 07/29/19 09:36 BP 116/74 07/29/19 09:36 Pulse Ox 94 07/29/19 09:36 Constitutional + obese ENMT Mouth: no dentition abnormality Thyromental Distance: > or= 3.5 Finger Breadths Mallampati Class: II Neck normal visual inspection and + thick neck Respiratory normal respiratory effort Auscultation: lungs clear to auscultation bilaterally Cardiovascular Rate/Rhythm: regular rate and regular rhythm Psychiatric Orientation: alert Testing Laboratory Results 07/28/19 13:14 07/28/19 13:14 Blood Type O Positive 07/28/19 13:14 Antibody Screen NEGATIVE 07/28/19 13:14
[2019-07-29] MEDS ORDERED: CEFAZOLIN 2000MG 2,000 MG/15 ML SYR IV ONE (11:31)
[2019-07-29] MEDS ORDERED: BACITRACIN INJ 50,000 UNIT VIAL IR ONE (13:29)
[2019-07-29] MEDS ORDERED: FLOSEAL HEMOSTATIC MATRIX 10ML TOP ONE (13:29)
[2019-07-29] MEDS ORDERED: BUPIVACAINE 0.5 % 5 MG/1 ML MPF 30ML VIAL INFIL SCH (13:30)
--- NOTE | 2019-07-29 13:32 | Operative Report ---
Post Operative Report Pre & Post Diagnosis Operation Date: 07/29/19 10:05 Pre-Op Diagnosis: HERNIATED NUCLEUS PULPOSUS LUMBAR SPINE WITH CAUDA EQUINA Post-Op Diagnosis: HERNIATED NUCLEUS PULPOSUS LUMBAR SPINE WITH CAUDA EQUINA I identified the patient and participated in the time-out.: Yes Procedure Operation Date: 07/29/19 10:05 Actual Procedures #1 lumbar decompression with bilateral medial facetectomies and foraminotomies L3-4, L4-5 and L5-S1. #2 posterior spinal fusion L4-5 L5-S1. #3 placement posterior instrumentation L4-5 L5-S1. #4 interbody fusion L4-5 and L5-S1. #5 placement of peek cage 8 x 22 mm at L4-5 and 10 x 22 mm at L5-S1. #6 placement of locally harvested morselized autograft in the posterior lateral gutters. #7 placement infuse collagen sponge, master graft in the posterior lateral gutters and ostial amp and interbody space. Surgeon Ronnie Briones, DO Instructional Support Specialist Glenna Radford Estimated Blood Loss 100 Findings See Below The patient is 5 foot 4 inches tall weighing 105 kg with a BMI in excess of 39. The patient's body habitus did add significant technical difficulty throughout the procedure requiring her deepest retractors and longus instruments in order to perform her surgery. This added at least 50% increase to the operative time. Specimens None Indications This is a 24-year-old female that presents with a marked decline in status with worsening lower extremity numbness and weakness and urinary incontinence. Subsequently we elected undergo emergent decompression and fusion. Description of Procedure Patient was met with identified informed consent obtained. Patient was then taken to the operative suite underwent an patient placed in a prone position the Morris table on top of the Jaskaran frame. All bony prominences well-padded eyes inspected to ensure no external pressure placed upon them. This point the lumbar spine is prepped and draped in normal sterile fashion. Sharp dissection with the assistance of Bovie cautery was performed down to and exposing the lamina transverse processes of L4-L5 and sacral ala bilaterally. From a caudal cephalad fashion complete laminectomy of L5 L4 and partial laminectomy of L3 was performed including bilateral medial facetectomies and foraminotomies. Iden tified severe neural compression bilaterally particularly on the left L5 and S1 levels. There is massive disc herniation that had wrapped completely around the traversing S1 nerve root. Was able to tease the fragments off of the nerves creating significant decompression. Pedicle screw was then placed in L4-L5 and S1 levels bilaterally with assistance of fluoroscopy. Proper sized eladia was then placed. By way of a transforaminal approach and left complete discectomy of L5- S1 was performed endplates curetted to subcortical bleeding bone and a 10 x 22 mm peek cage filled with osteo-bone graft tapped in position. Then proceeded to L for [address] of a transfer approach and left complete discectomy was performed endplates coated to subcortical and bone and an 8 x 22 mm peek cage fi lled with osteo-bone graft tapped in position. The rods and locked in final position bilaterally. The transverse processes of L4-L5 and sacral ala burred to subcortical bone. Infuse collagen sponge master graft local autograft placed in the posterior gutters. 15 round REJI drain inserted. Incision was then closed with 1 Vicryl the fascia 2-0 Vicryl subcutaneously and 4 Monocryl for final skin closure. Steri-Strips dressings placed. Patient will continue to PACU stable disc. Please note Glenna Radford was present at the entire procedure involved the patient positioning complex portions of the surgery and final skin closure. Lastly spinal cord monitoring was utilized that the procedure no changes noted. I attest to the content of the Intraoperative Record and any orders documented therein. Any exceptions are noted below.
[2019-07-29] MEDS: DOCUSATE SODIUM 100 MG CAP PO SCH (13:43)
[2019-07-29] MEDS: fentaNYL citrate 100 MCG/2 ML VIAL IV PRN ×4 (14:29→14:45)
--- NOTE | 2019-07-29 14:43 | Anesthesiology Progress Note ---
Date of Service July 29, 2019 Anesthesia Post Procedure Vital Signs Vital Signs: Temp Pulse Pulse Resp BP BP Pulse Ox 07/29/19 14:35 95 H 14 132/83 96 07/29/19 14:25 105 H 18 147/90 H 98 07/29/19 14:15 111 H 14 136/84 98 07/29/19 14:05 36.4 C L 127 H 13 140/78 98 07/29/19 10:23 37.3 C 80 18 95/63 L 94 07/29/19 09:36 36.9 C 91 H 18 116/74 94 07/29/19 08:03 36.9 C 91 H 18 116/74 96 07/28/19 23:41 88 97/61 L 07/28/19 23:16 37 C 75 95/60 L 96 07/28/19 15:26 36.7 C 75 16 109/71 96 Pain Intensity Back: Pain Intensity: 9 Transfer of Care Handoff Completed per policy Notes Mental Status: alert / awake / arousable Patient Amnestic to Procedure: Yes Nausea / Vomiting: adequately controlled Pain: adequately controlled Airway Patency, RR, SpO2: stable & adequate BP & HR: stable & adequate Hydration State: stable & adequate Anesthetic Complications: no major complications apparent
[2019-07-29] MEDS ORDERED: METOCLOPRAMIDE HCL INJ 5 MG/ML 2 ML VIAL IV PRN (15:33)
[2019-07-29] MEDS ORDERED: FAMOTIDINE 20 MG TAB PO PRN (15:33)
[2019-07-29] MEDS ORDERED: ALUMINUM/MAGNESIUM SUSP 30 ML UDC PO PRN (15:33)
[2019-07-29] MEDS ORDERED: SOD PHOSPHATE/SOD BIPHOSPHATE ENEMA 132 ML BTL PR PRN (15:33)
[2019-07-29] MEDS ORDERED: bisacodyL 10 MG SUPP PR PRN (15:33)
[2019-07-29] MEDS ORDERED: GABAPENTIN 400 MG CAP PO SCH (15:33)
[2019-07-29] MEDS ORDERED: LORazepam 0.5 MG/1 ML VIAL IV PRN (15:33)
[2019-07-29] MEDS ORDERED: DO NOT ADMINISTER PNEUMOCOCCAL VACCINE PRN (15:33)
[2019-07-29] MEDS ORDERED: ACETAMINOPHEN 500 MG TAB PO PRN (15:33)
[2019-07-29] MEDS ORDERED: DO NOT ADMINISTER FLU VACCINE PRN (15:33)
[2019-07-29] MEDS ORDERED: PROMETHAZINE HCL 12.5 MG in SODIUM CHLORIDE 0.9% 50 ML IV PRN (15:33)
[2019-07-29] MEDS ORDERED: LORazepam 0.5 MG TAB PO PRN (15:33)
[2019-07-29] MEDS ORDERED: NALOXONE HCL 0.4 MG/1 ML VIAL/CARP IV PRN (15:33)
[2019-07-29] MEDS ORDERED: MAGNESIUM HYDROXIDE SUSP 30 ML UDC PO PRN (15:33)
[2019-07-29] MEDS ORDERED: ONDANSETRON 4 MG OD TAB PO PRN (15:33)
[2019-07-29] MEDS ORDERED: ACETAMINOPHEN 1,000 MG/100 ML VIAL IV PRN (15:33)
[2019-07-29] MEDS: LACTATED RINGER'S 1,000 ML IV SCH ×4 (15:40→21:40)
[2019-07-29] MEDS: KETOROLAC 30 MG/ML VIAL IV SCH ×2 (16:33→21:40)
[2019-07-29] MEDS: CEFAZOLIN 2000MG 2,000 MG/15 ML SYR IV SCH (20:05)
[2019-07-29] MEDS: DOCUSATE SODIUM/SENNA 50/8.6MG TAB PO SCH (20:06)
[2019-07-30] MEDS: ALPRAZolam 0.5 MG TABLET PO PRN (00:13)
[2019-07-30] MEDS: HYDROCODONE/ACETAMOPHEN 5/325MG TAB PO PRN ×3 (02:03→18:30)
[2019-07-30] MEDS: LACTATED RINGER'S 1,000 ML IV SCH ×2 (04:12→10:35)
[2019-07-30] MEDS: CEFAZOLIN 2000MG 2,000 MG/15 ML SYR IV SCH (04:12)
[2019-07-30] MEDS: KETOROLAC 30 MG/ML VIAL IV SCH ×2 (04:13→09:27)
[2019-07-30 05:32] LABS: Basophils # (auto) 0.01 K/uL (0-0.2); Eosinophils # (auto) 0.01 K/uL (0-0.5); Hematocrit (blood only) 34.4 % (37-47); Hemoglobin 11.3 g/dL (12.0-16.0); Immature Granulocytes # (auto) 0.09 K/uL (0.00-0.02); Immature Granulocytes % (auto) 0.4 %; Lymphocytes % (auto) 11.3 %; Mean Corpuscular Hemoglobin 29.5 pg (25-34); Mean Corpuscular Hgb Conc 32.8 g/dL (32-36); Mean Corpuscular Volume 89.8 fL (80-100); Mean Platelet Volume 10.5 fL (7.4-10.4); Monocytes # (auto) 1.29 K/uL (0.11-0.59); Monocytes % (auto) 6.3 %; Neutrophils # (auto) 16.62 K/uL (1.4-6.5); Platelet Count 307 K/uL (130-400); RDW Coefficient of Variation 13.4 % (11.5-14.5); RDW Standard Deviation 43.7 fL (36.4-46.3); Red Blood Count 3.83 M/uL (4.2-5.4); White Blood Count 20.32 K/uL (4.8-10.8)
[2019-07-30 06:01] LABS: BUN Creatinine Ratio 15.5 (10-20); Creatinine Clr Calc Pharmacy 113.8 ml/min; Est GFR (African American) 103.7; Est GFR (Non-African American) 89.5
[2019-07-30] MEDS: POLYETHYLENE (MIRALAX) 17 GM PACK PO SCH ×4 (06:38→23:43)
[2019-07-30] MEDS: GABAPENTIN 400 MG CAP PO SCH ×3 (09:26→21:07)
[2019-07-30] MEDS: HYDROmorphone INJ 1 MG/ML SYRINGE IV PRN ×4 (10:31→16:29)
[2019-07-30] MEDS: DOCUSATE SODIUM 100 MG CAP PO SCH (10:35)
[2019-07-30] MEDS ORDERED: NON-FORMULARY MEDICATION (Docusate Sodium [Stool Softener] 100 MG) PO SCH (11:30)
--- NOTE | 2019-07-30 11:59 | Orthopedic Progress Note ---
Date of Service July 30, 2019 Assessment & Plan (1) Lumbar disc herniation: This time we will initiate physical therapy hope to discontinue her catheter this afternoon. We will monitor her urination function. Present on Admission?: Yes Admission and Anticipated Discharge Date Admission Date: July 29, 2019 Subjective Back pain controlled leg symptoms and numbness are markedly improved. Physical Exam Physical Exam: On exam she is excellent strength testing sensory is improving. Results & Data ([facility]) Vital Signs (Past 12 Hours) Vital Signs Temp Pulse Resp BP Pulse Ox 07/30/19 09:41 36.8 C 90 19 105/69 98 07/30/19 04:00 36.8 C 79 16 110/72 97
[2019-07-30] MEDS: HYDROmorphone INJ 0.5 MG/0.5 ML SYR IV PRN (19:54)
[2019-07-30] MEDS: DOCUSATE SODIUM/SENNA 50/8.6MG TAB PO SCH (20:11)
[2019-07-31] MEDS: HYDROmorphone INJ 1 MG/ML SYRINGE IV PRN (03:49)
[2019-07-31] MEDS: POLYETHYLENE (MIRALAX) 17 GM PACK PO SCH ×4 (05:44→23:26)
[2019-07-31] MEDS: HYDROCODONE/ACETAMOPHEN 5/325MG TAB PO PRN (07:45)
--- NOTE | 2019-07-31 09:08 | Orthopedic Progress Note ---
Date of Service July 31, 2019 Assessment & Plan (1) Lumbar radiculopathy: We will continue physical therapy today monitor REJI output anticipate discharge home in the next few days. I did discontinue hydrocodone and began oral Dilaudid. Present on Admission?: Yes Admission and Anticipated Discharge Date Admission Date: July 29, 2019 Subjective Back pain still quite limiting. Leg symptoms markedly improved. Numbness improving. Was able to urinate without difficulty yesterday. Physical Exam Physical Exam: On exam she has good strength testing. Sensory improving. Results & Data ([facility]) Vital Signs (Past 12 Hours) Vital Signs Temp Pulse Pulse Resp BP Pulse Ox 07/31/19 06:59 36.9 C 76 18 131/84 94 07/30/19 23:00 36.8 C 81 18 125/77 96
[2019-07-31] MEDS: GABAPENTIN 400 MG CAP PO SCH ×3 (10:15→21:37)
[2019-07-31] MEDS: HYDROmorphone HCL 2 MG TAB PO PRN ×3 (11:02→20:33)
[2019-07-31] MEDS: DOCUSATE SODIUM 100 MG CAP PO SCH (11:02)
[2019-07-31] MEDS: ALPRAZolam 0.5 MG TABLET PO PRN (17:05)
[2019-07-31] MEDS: HYDROmorphone INJ 0.5 MG/0.5 ML SYR IV PRN (19:35)
[2019-07-31] MEDS: DOCUSATE SODIUM/SENNA 50/8.6MG TAB PO SCH (21:37)
[2019-08-01] MEDS: HYDROmorphone HCL 2 MG TAB PO PRN (05:09)
[2019-08-01] MEDS: POLYETHYLENE (MIRALAX) 17 GM PACK PO SCH ×2 (05:10→12:16)
--- NOTE | 2019-08-01 07:43 | Discharge Summary ---
Date of Service August 01, 2019 Principal Diagnosis Cauda equina syndrome with neurogenic bladder Discharge Data Allergies Allergy/AdvReac Type Severity Reaction Status Date / Time pollen extracts Allergy Intermediate congestion Verified 07/29/19 10:26 morphine AdvReac Intermediate "EXTREME Verified 07/29/19 10:26 NAUSEA" tramadol AdvReac Intermediate hallucinate Verified 07/29/19 10:26 Consultations 07/28/19 12:59 Consult Anesthesiology Routine 07/28/19 13:00 ED Decision to Admit Stat 07/29/19 15:33 Consult Case Management - Discharge Planning Routine Procedures Performed Operation Date: 07/29/19 10:05 Actual Procedures p L4-S1 Decompression and Fusion, Spinal Cord Monitoring(Not Applicable) - Ronnie Brinoes DO Hospital Course (1) Cauda equina syndrome with neurogenic bladder: Total Time Total Time Spent Total Time Spent (In Minutes): 30 minutes Discharge Plan Discharge Items Patient Disposition: Home - Self-Care Reason For Visit: HNP LUMBAR SPINE WITH CAUDA EQUINA Discharge Diagnosis: Herniated nucleus pulposus lumbar spine with cauda equina syndrome Activity: As commented below Non-emergency contact: Primary Care Provider Call non-emergency contact if: you have any medication questions Follow-up/Referrals: Allie Jefferson MD [Primary Care Provider] - Diet: Regular Addtl Attending Provider Instructions: ACTIVITY RECOMMENDATIONS: SELF CARE INSTRUCTIONS AFTER THORACIC/LUMBAR FUSIONS 1. You may walk to your tolerance. It is good exercise for your legs and back. Expect some back and intermittent leg aches and pains. 2. You may perform "counter-top" level activities (make a sandwich, sammy with a project, etc.). 3. No bending or lifting of more than 10 pounds or back twisting of any nature (roll like a log when turning in bed). 4. You may ride in a car for 20-30 minutes at a time. No driving until after your first visit with your doctor. 5. Frequent changes of position and restricting sitting to 30 minutes at a time will help limit the amount of back spasms and stiffness you may experience. 6. You may discontinue the use of ambulatory aids (cane, crutches, etc.) once your strength and confidence allow. 7. You may therapeutic riding instructor the shower and let water strike your incision when you arrive home at least once daily. Do not take a tub bath, sit in a hot tub or go into a swimming pool until after your first recheck in the office. SPECIAL CARE INSTRUCTIONS: VERY IMPORTANT TO READ AND REVIEW A. Your surgical incision has been closed with a cosmetic suture under the skin that will dissolve in about 6 weeks. In 14 days, you can use a pair of clean scissors and cut the suture that is left outside of the skin at the ends of your incision. 1. The small skin tapes can be removed 7 days after surgery if they have not fallen off by that point. 2. You may keep the wound open to air as much as possible to promote healing after post-op day number 5 unless told otherwise by your doctor. 3. If you think the wound looks like it is becoming infected (redness or worsening drainage) and/or you are experiencing fever, chill or worsening back pain and muscle spasms, contact the office so that we may evaluate you as soon as possible. B. Complications are uncommon, but please contact us if you have any signs or symptoms of: 1. wound infection (fever higher than 102.5 degrees F, redness, separation of wound, drainage, or increasing pain from the incision) 2. blood clots in legs (pain, swelling, redness and warmth in legs) 3. urinary tract infection (fever higher than 102.5 degrees F, burning upon urination or increased frequency of urination) 4. nerve problems (inability to walk on your toes or heels, numbness, loss of bowel or bladder control) 5. any other symptoms that concern you C. Please call the office at if you have any concerns or questions about your operation or recovery. D. No smoking! Smoking drastically decreases the chance of a solid fusion. E. Do not take any anti-inflammatory medications (Indocin, Advil, Motrin, Aspirin, Naprosyn, etc.) as these may inhibit the chance of a solid fusion. Tylenol is okay to take for pain. MANAGING PAIN AFTER SPINAL SURGERY 1. Narcotic medication is intended for short-term use and will be provided for surgical pain. Surgical pain usually lasts for a period of 4-6 weeks. Narcotic medication includes Percocet, Vicodin, Darvocet, Tylenol #3 or Lortab. 2. Longer-term pain is more appropriately treated with non-narcotic medication such as Tylenol ES. 3. Muscle spasm is not appropriately treated with narcotics. Muscle relaxers such as Soma, Flexeril or Skelaxin can be used along with Tylenol ES. 4. Remember that we all live with some "aches and pains". This is not unusual or uncommon after an injury or as we get older. a. Back pain is expected and may include muscle spasms for 4 to 6 weeks after surgery. The pain should gradually improve. If the pain worsens for no apparent reason, please contact the office. b. Intermittent leg pain may also be experienced and should not be concerned about unless it worsens for no apparent reason. If so, please contact the office. 5. We will provide appropriate medication within the normal guidelines of their prescribed use. We will also be very cautious and aware of potential abuse and extended duration of patients' medication needs. a. Pain medications are for your comfort and to assist with sleep and rest so that the tissue can heal. They are not provided in order to return to normal activity and should not be used through the day. To do so or worsening pain at night can result from ongoing tissue damage and development of tolerance to the prescribed medicine. 6. Please allow 2-3 days to process refills. Prescriptions will not be mailed but must be picked up at the office. FOLLOW UP VISIT: Keep your scheduled follow-up appointment. Any questions, please call the office at . Pending Studies at Discharge: No Stand-Alone Forms: My [facility], Smoking Cessation Medications and DC Order Prescriptions: New hydromorphone [Dilaudid] 2 mg tablet 2 mg PO Q6H PRN (Reason: pain) Qty: 30 RF: 0 Continued alprazolam [Xanax] 0.5 mg tablet 0.5 mg PO BID PRN (Reason: anxiety) Qty: 10 RF: 0 docusate sodium [Stool Softener] 100 mg Tablet 100 mg PO QDL RF: 0 cranberry 500 mg Capsule 0 mg PO QDL RF: 0 gabapentin 400 mg capsule 400 mg PO TID Qty: 60 RF: 0 Discharge Orders: Discharge Order (Routine); Ordered 08/01/19 Ordered By: Ronnie Briones Admission Data Admit Date/Time: 07/29/19 10:49 Attending Provider: Ronnie Briones Admit Provider: Glenna Reyes Primary Care Provider: Allie Jefferson Other Providers: Gerald Sanches ; Ronnie Briones
[2019-08-01] MEDS: HYDROmorphone INJ 1 MG/ML SYRINGE IV PRN (07:49)
[2019-08-01] MEDS: GABAPENTIN 400 MG CAP PO SCH (09:01)
[2019-08-01] MEDS: DOCUSATE SODIUM 100 MG CAP PO SCH (11:05)
[2019-08-01] MEDS: ALPRAZolam 0.5 MG TABLET PO PRN (11:05)
== END 2019-08-01 12:45 | disposition home or self-care (01) | DRG 454 ==
LOC: 3N 11:50 → ED 11:50 → 3N 14:15 → 3E 07-31 13:55

== ENCOUNTER 2020-01-05 17:33 | Observation (INO) ==
[2020-01-05] MEDS ORDERED: ERTAPENEM SODIUM 10 ML IV STA (17:59)
[2020-01-05] MEDS ORDERED: SODIUM CHLORIDE 0.9% 1000ML 1,000 ML IV ONE (20:04)
[2020-01-05] MEDS ORDERED: ERTAPENEM SODIUM 1,000 MG in SODIUM CHLORIDE 0.9% 50 ML IV STA (20:20)
--- NOTE | 2020-01-05 20:25 | Emergency Department Note ---
Impression & Plan Pyelonephritis, Infection due to ESBL-producing Escherichia coli, UTI (urinary tract infection), Vomiting, Abdominal pain ED Provider Note NAME: RAFA MOSS AGE: 24 SEX: F : 1995 ARRIVES VIA: Walk-In INFORMANT: Patient ED PROVIDER(S): Jose Manuel March DO CHIEF COMPLAINT: Flank pain and ESBL UTI HPI: Patient is a 24-year-old female who presents to the ER 2 days ago for severe right flank pain associated with belly pain and chest pain. CT was performed and blood work was done as well as a UA. UA is remarkable for an ESBL. She was treated for UTI with Macrobid. She does have flank pain. She has had worsening flank pain as well as nausea and vomiting. CT at that time did not show Pylo. She admits to chest pain only with coughing. Denies any shortness of breath. No significant belly pain. Denies any dysuria, urgency or frequency. Notes the urine smells badly. Was instructed to come in for IV antibiotics and admission. Back pain has been worsening and she vomited 3 times today. She does always have chronic back pain. ROS: See above HPI for pertinent positives & negatives. A total of 10 systems reviewed and were otherwise negative. PAST MEDICAL HISTORY:See Below PAST SURGICAL HISTORY:See Below FAMILY HISTORY:See Below SOCIAL HISTORY:See Below HOME MEDICATIONS:See Below ALLERGIES:See Below VITALS:See Below PHYSICAL EXAMINATION: GENERAL: Sitting up in bed, alert, well appearing, well nourished, no distress, non-toxic EYE EXAM: normal conjunctiva. OROPHARYNX: no exudate, no erythema, lips, buccal mucosa, and tongue normal and mucous membranes are moist NECK: supple, no nuchal rigidity, no adenopathy, non-tender CHEST: Reproducible anterior chest wall pain LUNGS: Clear to auscultation. Normal chest wall mechanics HEART: no murmurs, S1 normal and S2 normal ABDOMEN: abdomen soft, non-tender, normo-active bowel sounds, no masses, no rebound or guarding. BACK: Back is symmetrical on inspection and there is no deformity, no midline tenderness, tenderness throughout the right flank SKIN: no rashes and no bruising UPPER EXTREMITIES: upper extremities are grossly normal. LOWER EXTREMITIES: No pitting edema. NEURO EXAM: Normal sensorium, cranial nerves II-XII grossly intact, normal speech, no gross weakness of arms, no gross weakness of legs. MEDICAL DECISION MAKING: Patient is a 24-year-old female with a recent visit to the ER was diagnosed with an ESBL on culture. She was encouraged to return on a call back as she was having vomiting and worsening flank pain. Vitals were stable. Labs show leukocytosis of 13,000. No significant anemia. BMP was unremarkable. LFTs bilirubin were negative. Urine culture was reviewed. Patient was given Invanz secondary to resistance. CT did not show any pyelonephritis. She does have flank pain. Question if this is her muscle skeletal pain versus true Dago. She does have a leukocytosis. Clear infection on the UA. Did elect to bring her in. Given a dose of fluids and Toradol. Updated and discussed with hospitalist for further evaluation. Triage Nursing notes reviewed. Prior medical records reviewed Vital Signs: reviewed and unremarkable Differential diagnosis: Differential diagnosis includes etiologies such as sepsis, UTI, pneumonia, metabolic, electrolyte abnormalities, cardiac sources, intracerebral event, toxicologic, neurological, as well as others were entertained. ER treatment provided: See below Diagnostics interpreted by me: ECG: none Cardiac Monitoring: An order was placed for continuous cardiac monitoring. The monitor shows a rate of 80 with sinus rhythm. Laboratory studies: As stated above and show below. Imaging studies: Previous CT was reviewed Consultation(s): Gurwinder with Dr. Femi Gonzales for further evaluation ED COURSE: Procedures: none Critical Care: None Past Med/Surg History Medical History (Updated 01/05/20 @ 23:24 by Jose Manuel March DO) Anxiety and depression Asymmetrical deep tendon reflexes Constipation Lumbar disc herniation LEFT LEG/BUTTOCKS NUMBNESS Lumbar radiculopathy Obese Paresthesia of left lower extremity Surgical History Cyst of fallopian tube REMOVED VIA LAP PROCEDURE 07/15/19>DRAINED 2 LITERS OF FLUID H/O ovarian cystectomy History of tonsillectomy Family History Father Diabetes Grandmother Diabetes Grandfather Diabetes Uncle Diabetes Aunt Diabetes Denies family history of Ovarian cancer Prostate cancer Myocardial infarction Breast cancer Colorectal cancer Social History Smoking Status: Never smoker Tobacco Type: Cigarettes Cigarettes Per Day: 3; Second Hand Exposure: Yes; Hx Alcohol Use: No Hx Substance Use: No Preferred Language: Uzbek Communication Ability: Effective Visual Impairment: No Limitations Hearing Ability: Normal Medical Oncology Physician Required: No Beliefs That Will Affect Care: None marital status: Single Current Living Situation: Parent current occupational status: employed current occupation: [employer] Feels Safe at Home: Yes caffeine: Yes (coffee) Physical Activity Frequency: Does not Exercise Seatbelt Use: always Sunscreen Use: No Allergies Allergies Allergy/AdvReac Type Severity Reaction Status Date / Time pollen extracts Allergy Intermediate congestion Verified 01/05/20 21:20 morphine AdvReac Severe Nausea Verified 01/05/20 21:20 tramadol AdvReac Intermediate Hallucinating Verified 01/05/20 21:20 and rash/hives Home Meds Home Medications Medication Instructions Recorded Confirmed ibuprofen 200 - 800 mg PO Q8H PRN 01/03/20 01/05/20 acetaminophen 1,000 mg PO Q6H PRN 01/05/20 01/05/20 alprazolam [Xanax] 0.5 mg PO BID PRN 01/05/20 01/05/20 ondansetron HCl [Zofran] 4 mg PO Q6H PRN 01/05/20 01/05/20 Previous Rx's Medication Instructions Recorded nitrofurantoin monohyd/m-cryst 100 mg PO BID 7 Days #14 cap 01/03/20 [Macrobid] Results & Data (ED) Vital Signs Vital Signs - 24 hr 01/05/20 17:44 01/05/20 20:20 01/05/20 20:52 Temperature 37 C 36.9 C Temperature Source Oral Oral Pulse Rate 100 H Pulse Rate [Apical] 95 H Pulse Rhythm Regular Pulse Strength Normal Respiratory Rate 20 18 18 Respiratory Effort / Characteristics Non-Labored Spontaneous Non-Labored Spontaneous Non-Labored Respiratory Depth Normal Normal Normal Respiratory Pattern Regular Blood Pressure 115/83 Blood Pressure [Right Arm] 130/77 Blood Pressure Mean 93 Blood Pressure Mean [Right Arm] 94 Blood Pressure Position Sitting Pulse Oximetry 97 96 Oxygen Delivery Method Room Air Room Air Room Air Sepsis Recent Fever Within 48 Hours No Sepsis New/Unexplained Change in Mental Status N/A Sepsis Action Taken by Nursing No Action Required 01/05/20 21:43 01/05/20 22:57 Temperature Temperature Source Pulse Rate Pulse Rate [Apical] 85 77 Pulse Rhythm Pulse Strength Respiratory Rate 18 18 Respiratory Effort / Characteristics Non-Labored Spontaneous Respiratory Depth Normal Respiratory Pattern Blood Pressure Blood Pressure [Right Arm] 114/64 122/61 Blood Pressure Mean Blood Pressure Mean [Right Arm] 80 81 Blood Pressure Position Pulse Oximetry 97 94 Oxygen Delivery Method Room Air Room Air Sepsis Recent Fever Within 48 Hours Sepsis New/Unexplained Change in Mental Status Sepsis Action Taken by Nursing Laboratory Data Result diagrams: 01/05/20 20:15 01/05/20 20:15 Lab Results 01/05/20 01/05/20 Range/Units 20:15 20:15 WBC 13.36 H (4.8-10.8) K/uL RBC 4.93 (4.2-5.4) M/uL Hgb 14.1 (12.0-16.0) g/dL Hct 43.7 (37-47) % MCV 88.6 (80-100) fL MCH 28.6 (25-34) pg MCHC 32.3 (32-36) g/dL RDW Std Deviation 45.4 (36.4-46.3) fL RDW Coeff of Beba 13.9 (11.5-14.5) % Plt Count 328 (130-400) K/uL MPV 10.2 (7.4-10.4) fL Immature Gran % (Auto) 0.2 % Neut % (Auto) 54.5 % Lymph % (Auto) 29.8 % [place] % (Auto) 7.9 % Eos % (Auto) 7.3 % Baso % (Auto) 0.3 % Neut # (Auto) 7.29 H (1.4-6.5) K/uL Lymph # (Auto) 3.98 H (1.2-3.4) K/uL [place] # (Auto) 1.05 H (0.11-0.59) K/uL Eos # (Auto) 0.97 H (0-0.5) K/uL Baso # (Auto) 0.04 (0-0.2) K/uL Immature Gran # (Auto) 0.03 H (0.00-0.02) K/uL Sodium 139 (136-145) mmol/L Potassium 4.2 (3.5-5.1) mmol/L Chloride 107 (98-107) mmol/L Carbon Dioxide 26 (21-32) mmol/L Anion Gap 7.0 (3-11) BUN 9 (7-18) mg/dl Creatinine 0.98 (0.6-1.2) mg/dl Est Cr Clr Drug Dosing Not Reportable Est GFR ( Amer) 93.6 Est GFR (Non-Af Amer) 80.7 BUN/Creatinine Ratio 9.1 L (10-20) Glucose 101 H (70-99) mg/dl Calcium 9.1 (8.5-10.1) mg/dl Total Bilirubin 0.3 (0.2-1) mg/dl AST 35 (15-37) U/L ALT 63 (12-78) U/L Alkaline Phosphatase 95 (45-117) U/L Total Protein 7.4 (6.4-8.2) gm/dl Albumin 3.4 (3.4-5.0) gm/dl Globulin 4.0 (2.5-4.0) gm/dl Albumin/Globulin Ratio 0.8 L (0.9-2) Administered Medications Discontinued Medications Sodium Chloride (Nss 1000ml) 1,000 mls @ 999 mls/hr IV .Q1H1M ONE Stop: 01/05/20 21:04 Last Infusion: 01/05/20 21:25 Dose: 0 mls/hr Documented by: [id number] Admin: 01/05/20 20:25 Dose: 999 mls/hr Documented by: [id number] Ertapenem 1,000 mg/ Sodium (Chloride) 60 mls @ 100 mls/hr IV NOW STA Stop: 01/05/20 20:55 Last Infusion: 01/05/20 21:21 Dose: 0 mls/hr Documented by: [id number] Admin: 01/05/20 20:51 Dose: 100 mls/hr Documented by: [id number] Ketorolac Tromethamine (Ketorolac 30 Mg/Ml Vial) 30 mg IV NOW ONE Stop: 01/05/20 20:56 Last Admin: 01/05/20 21:01 Dose: 30 mg Documented by: [id number] Lorazepam (Lorazepam 1 Mg Tab) 0.5 mg SL NOW STA Stop: 01/05/20 20:56 Last Admin: 01/05/20 21:01 Dose: 0.5 mg Documented by: [id number] Discharge Plan Visit Data Chief Complaint: Referred by Doctor Stated Complaint: DOCTOR REFERRED, IV NEEDED ED Provider: Jose Manuel March Discharge Problem: Pyelonephritis, Infection due to ESBL-producing Escherichia coli, UTI (urinary tract infection), Vomiting, Abdominal pain Forms Stand Alone Forms: [facility] Prescriptions Prescriptions: No Action ibuprofen 200 mg Tablet 200 - 800 mg PO Q8H PRN (Reason: Pain) RF: 0 nitrofurantoin monohyd/m-cryst [Macrobid] 100 mg capsule 100 mg PO BID 7 Days Qty: 14 RF: 0 acetaminophen 500 mg Tablet 1,000 mg PO Q6H PRN (Reason: Pain) RF: 0 ondansetron HCl [Zofran] 4 mg tablet 4 mg PO Q6H PRN (Reason: Nausea) RF: 0 alprazolam [Xanax] 0.5 mg tablet 0.5 mg PO BID PRN (Reason: Anxiety) RF: 0 Discharge Problem: UTI (urinary tract infection) Qualifiers: Urinary tract infection type: acute pyelonephritis Qualified Code(s): N10 - Acute pyelonephritis Vomiting Qualifiers: Vomiting type: unspecified Vomiting Intractability: unspecified Nausea presence: with nausea Qualified Code(s): R11.2 - Nausea with vomiting, unspecified Abdominal pain Qualifiers: Abdominal location: unspecified location Qualified Code(s): R10.9 - Unspecified abdominal pain
[2020-01-05 20:38] LABS: Basophils # (auto) 0.04 K/uL (0-0.2); Basophils % (auto) 0.3 %; Eosinophils # (auto) 0.97 K/uL (0-0.5); Eosinophils % (auto) 7.3 %; Hematocrit (blood only) 43.7 % (37-47); Hemoglobin 14.1 g/dL (12.0-16.0); Immature Granulocytes # (auto) 0.03 K/uL (0.00-0.02); Immature Granulocytes % (auto) 0.2 %; Lymphocytes # (auto) 3.98 K/uL (1.2-3.4); Lymphocytes % (auto) 29.8 %; Mean Corpuscular Hemoglobin 28.6 pg (25-34); Mean Corpuscular Hgb Conc 32.3 g/dL (32-36); Mean Corpuscular Volume 88.6 fL (80-100); Mean Platelet Volume 10.2 fL (7.4-10.4); Monocytes # (auto) 1.05 K/uL (0.11-0.59); Monocytes % (auto) 7.9 %; Neutrophils # (auto) 7.29 K/uL (1.4-6.5); Neutrophils % (auto) 54.5 %; Platelet Count 328 K/uL (130-400); RDW Coefficient of Variation 13.9 % (11.5-14.5); RDW Standard Deviation 45.4 fL (36.4-46.3); Red Blood Count 4.93 M/uL (4.2-5.4); White Blood Count 13.36 K/uL (4.8-10.8)
[2020-01-05 20:49] LABS: Alanine Aminotransferase 63 U/L (12-78); Albumin Level 3.4 gm/dl (3.4-5.0); Aspartate Aminotransferase 35 U/L (15-37); BUN Creatinine Ratio 9.1 (10-20); Blood Urea Nitrogen 9 mg/dl (7-18); Calcium 9.1 mg/dl (8.5-10.1); Carbon Dioxide 26 mmol/L (21-32); Chloride 107 mmol/L (98-107); Est GFR (African American) 93.6; Est GFR (Non-African American) 80.7; Glucose 101 mg/dl (70-99); Potassium 4.2 mmol/L (3.5-5.1); Sodium 139 mmol/L (136-145)
[2020-01-05 20:52] LABS: Albumin Globulin Ratio 0.8 (0.9-2); Alkaline Phosphatase 95 U/L (45-117); Bilirubin,Total 0.3 mg/dl (0.2-1); Total Protein 7.4 gm/dl (6.4-8.2)
[2020-01-05] MEDS ORDERED: KETOROLAC 30 MG/ML VIAL IV ONE (20:55)
[2020-01-05] MEDS ORDERED: LORazepam 1 MG TAB SL STA (20:55)
--- NOTE | 2020-01-05 23:56 | History & Physical Report ---
Date of Service January 05, 2020 Assessment & Plan (1) Infection due to ESBL-producing Escherichia coli: Ertapenem 1 g IV daily begun in the ED. Patient also has a history of Proteus mirabilis UTI on 10/01/2019. Also with history of Enterococcus faecalis UTI on 07/28/2019. 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 Present on Admission?: Yes (2) Anxiety and depression: Continue Xanax 0.5 mg p.o. twice daily as needed Present on Admission?: Yes History of Present Illness Chief Complaint: The patient was called back into the emergency department due to ESBL E. coli UTI, with treatment only responsive to IV antibiotics Primary Care Provider: Allie Jefferson MD The patient is a 24-year-old female who had undergone urinalysis and urine culture and sensitivity on January 01, which has grown ESBL E. coli, and has been called back into the ED to be admitted for IV antibiotics. She also reports generalized aching throughout her body. Allergies Allergy/AdvReac Type Severity Reaction Status Date / Time morphine AdvReac Severe Nausea Verified 01/05/20 21:20 pollen extracts AdvReac Intermediate congestion Verified 01/06/20 00:12 tramadol AdvReac Intermediate Hallucinating Verified 01/05/20 21:20 and rash/hives Home Medications Home Medications Medication Instructions Recorded Confirmed Type ibuprofen 200 - 800 mg PO Q8H PRN 01/03/20 01/05/20 History nitrofurantoin monohyd/m-cryst 100 mg PO BID 7 Days #14 cap 01/03/20 01/05/20 Rx [Macrobid] acetaminophen 1,000 mg PO Q6H PRN 01/05/20 01/05/20 History alprazolam [Xanax] 0.5 mg PO BID PRN 01/05/20 01/05/20 History ondansetron HCl [Zofran] 4 mg PO Q6H PRN 01/05/20 01/05/20 History Past Med/Surg History Medical History (Updated 01/06/20 @ 03:47 by Femi Gonzales MD) Anxiety and depression Asymmetrical deep tendon reflexes Constipation Lumbar disc herniation LEFT LEG/BUTTOCKS NUMBNESS Lumbar radiculopathy Obese Paresthesia of left lower extremity Surgical History Cyst of fallopian tube REMOVED VIA LAP PROCEDURE 07/15/19>DRAINED 2 LITERS OF FLUID H/O ovarian cystectomy History of tonsillectomy Family History Father Diabetes Grandmother Diabetes Grandfather Diabetes Uncle Diabetes Aunt Diabetes Denies family history of Ovarian cancer Prostate cancer Myocardial infarction Breast cancer Colorectal cancer Social History Smoking Status: Current some day smoker Tobacco Type: Cigarettes Cigarettes Per Day: 3; Second Hand Exposure: Yes; Hx Alcohol Use: Yes Alcohol type: hard liquor Hx Substance Use: No Preferred Language: Marshallese Communication Ability: Effective Visual Impairment: No Limitations Hearing Ability: Normal Twisthand Required: No Beliefs That Will Affect Care: None marital status: Single Current Living Situation: Parent current occupational status: employed current occupation: [employer] Other Information That Helps Us Care for You: No Feels Safe at Home: Yes Safety Concerns: Feels Safe At This Time caffeine: Yes (coffee) Physical Activity Frequency: Does not Exercise Seatbelt Use: always Sunscreen Use: No Review of Systems Review of Systems: The patient denies chest pain, palpitations, shortness of breath, dyspnea on exertion, cough, lower extremity swelling, sore throat, fevers, chills, sweats, nausea, vomiting, diarrhea , constipation, abdominal pain, pelvic pain, blood in urine or stool, lightheadedness, dizziness, headache, memory loss, loss of consciousness, rash, abnormal bruising or bleeding, imbalance, focal or generalized weakness, numbness or tingling in arms or legs, neck pain, or night sweats. The review of systems is otherwise negative other than for that already noted above, and at least 10 systems have been reviewed. Physical Exam Physical Exam: The patient is awake, alert and oriented 3, well developed and well nourished, normocephalic and atraumatic, lying in bed and in no acute distress. HEENT--PERRL, EOMI, mucous membranes and oropharynx dry. Neck--supple. No JVD. No bruits. Thyroid normal, trachea midline, no adenopathy. Heart--normal S1 and S2. No murmurs, rubs or gallops. Lungs--clear bilaterally, no respiratory distress, no accessory muscle use. Abdomen--normal bowel sounds and soft. Nontender. Nondistended. Extremities--no cyanosis or clubbing. No edema. There are good distal pulses b/l. Dermatologic--normal skin turgor, normal color, no abnormal lymph nodes, no rash. Neurologic--cranial nerves II through XII grossly intact. Rheumatologic--normal range of motion. Psychiatric--normal affect. Results & Data Results & Data ([facility]) Vital Signs (Past 12 Hours) Vital Signs Temp Pulse Pulse Resp BP BP Pulse Ox 01/05/20 23:37 81 18 121/71 97 01/05/20 22:57 77 18 122/61 94 01/05/20 21:43 85 18 114/64 97 01/05/20 20:52 98.4 F 95 H 18 96 01/05/20 20:20 18 130/77 01/05/20 17:44 98.6 F 100 H 20 115/83 97 Laboratory Results Laboratory Results WBC 13.36 K/uL (4.8-10.8) H 01/05/20 20:15 RBC 4.93 M/uL (4.2-5.4) 01/05/20 20:15 Hgb 14.1 g/dL (12.0-16.0) 01/05/20 20:15 Hct 43.7 % (37-47) 01/05/20 20:15 MCV 88.6 fL (80-100) 01/05/20 20:15 MCH 28.6 pg (25-34) 01/05/20 20:15 MCHC 32.3 g/dL (32-36) 01/05/20 20:15 RDW Std Deviation 45.4 fL (36.4-46.3) 01/05/20 20:15 RDW Coeff of Beba 13.9 % (11.5-14.5) 01/05/20 20:15 Plt Count 328 K/uL (130-400) 01/05/20 20:15 MPV 10.2 fL (7.4-10.4) 01/05/20 20:15 Immature Gran % (Auto) 0.2 % 01/05/20 20:15 Neut % (Auto) 54.5 % 01/05/20 20:15 Lymph % (Auto) 29.8 % 01/05/20 20:15 Walker % (Auto) 7.9 % 01/05/20 20:15 Eos % (Auto) 7.3 % 01/05/20 20:15 Baso % (Auto) 0.3 % 01/05/20 20:15 Neut # (Auto) 7.29 K/uL (1.4-6.5) H 01/05/20 20:15 Lymph # (Auto) 3.98 K/uL (1.2-3.4) H 01/05/20 20:15 Walker # (Auto) 1.05 K/uL (0.11-0.59) H 01/05/20 20:15 Eos # (Auto) 0.97 K/uL (0-0.5) H 01/05/20 20:15 Baso # (Auto) 0.04 K/uL (0-0.2) 01/05/20 20:15 Immature Gran # (Auto) 0.03 K/uL (0.00-0.02) H 01/05/20 20:15 Sodium 139 mmol/L (136-145) 01/05/20 20:15 Potassium 4.2 mmol/L (3.5-5.1) 01/05/20 20:15 Chloride 107 mmol/L (98-107) 01/05/20 20:15 Carbon Dioxide 26 mmol/L (21-32) 01/05/20 20:15 Anion Gap 7.0 (3-11) 01/05/20 20:15 BUN 9 mg/dl (7-18) 01/05/20 20:15 Creatinine 0.98 mg/dl (0.6-1.2) 01/05/20 20:15 Est Cr Clr Drug Dosing Not Reportable 01/05/20 20:15 Est GFR ( Amer) 93.6 01/05/20 20:15 Est GFR (Non-Af Amer) 80.7 01/05/20 20:15 BUN/Creatinine Ratio 9.1 (10-20) L 01/05/20 20:15 Glucose 101 mg/dl (70-99) H 01/05/20 20:15 Calcium 9.1 mg/dl (8.5-10.1) 01/05/20 20:15 Total Bilirubin 0.3 mg/dl (0.2-1) 01/05/20 20:15 AST 35 U/L (15-37) 01/05/20 20:15 ALT 63 U/L (12-78) 01/05/20 20:15 Alkaline Phosphatase 95 U/L (45-117) 01/05/20 20:15 Total Protein 7.4 gm/dl (6.4-8.2) 01/05/20 20:15 Albumin 3.4 gm/dl (3.4-5.0) 01/05/20 20:15 Globulin 4.0 gm/dl (2.5-4.0) 01/05/20 20:15 Albumin/Globulin Ratio 0.8 (0.9-2) L 01/05/20 20:15 Diagnostic Findings [facility], [place] [phone] CT Scan Report Patient: RAFA MOSS Date: 01/03/20 MR#: [id number]: [address] Acct ID:[id number]: [address] Date: 1995[facility] Zip: [place] [id number] Age: 24Location: ED Sex: FRoom/Bed: Att Phy:Diagnosis: UTI, FLANK PAIN Alena Phy: Allie Jefferson MDService Date: 01/03/20 Fam Phy:Interpreting Phy: Stevie Putnam MD Admit Phy: Ordering Phy: Nay Kirby .KIRSTY cc: ~ CT abd pelvis IV con only CLINICAL HISTORY: Right flank pain. Possible pyelonephritis. COMPARISON STUDY: October 17, 2019 TECHNIQUE: The patient was scanned in a dynamic helical fashion during intravenous and ministration of 93 cc of Optiray 320. A dose lowering technique was utilized adhering to the principles of ALARA. CT DOSE: 1668.85 mGy.cm FINDINGS: Lower chest: There are minimal basilar atelectatic changes Liver: There is hepatic steatosis. No focal hepatic masses are visualized. Gallbladder: Contracted Spleen: Normal in size and attenuation. Pancreas: Unremarkable. Adrenal glands: Unremarkable. Kidneys: There is symmetric renal cortical enhancement. The kidneys are normal in size without hydronephrosis. Bowel: There are no transition zones indicate bowel obstruction. The appendix appears normal. There is no acute diverticulitis. Peritoneum: There is no intraperitoneal free air or abdominal ascites. Vasculature: The abdominal aorta is normal in course and caliber. Adenopathy: None. Pelvic viscera: The bladder, and pelvic viscera are unremarkable. Skeletal structures: Postsurgical changes are present within the cervical spine IMPRESSION: 1. No acute intra-abdominal or pelvic findings 2. No CT evidence of acute pyelonephritis. No evidence of hydronephrosis 3. No evidence of bowel obstruction. No evidence of free air 4. Normal appendix. No evidence of acute diverticulitis. 5. Hepatic steatosis ACT 112: Negative or not required by law. Electronically signed by: Stevie Putnam M.D. 01/03/2020 7:29 AM Dictated: 01/03/20725 Transcribed: 01/03/20725 Code Status & VTE Plan Code Status Full code VTE Prophylaxis Plan VTE Prophylaxis will be ordered: Yes PG Care Time/CCT Total # of Minutes Spent Total Time Spent with Patient: Total time spent is greater than 50% in coordination of care (as documented) at patient's floor/unit and/or counseling patient: Coding Level of Care Code 69113 Initial Inpt Care Lvl 2 Diagnoses Infection due to ESBL-producing Escherichia coli A49.8; Z16.12 Anxiety and depression F41.9; F32.9
[2020-01-06] MEDS ORDERED: MAGNESIUM HYDROXIDE SUSP 30 ML UDC PO PRN (00:07)
[2020-01-06] MEDS ORDERED: ALUMINUM/MAGNESIUM SUSP 30 ML UDC PO PRN (00:07)
[2020-01-06] MEDS: ACETAMINOPHEN 325 MG TAB PO PRN ×2 (00:28→08:13)
[2020-01-06] MEDS: ALPRAZolam 0.5 MG TABLET PO PRN ×2 (00:28→22:55)
[2020-01-06] MEDS: HEPARIN SOD 5,000 UNIT/0.5 ML VIAL SQ SCH ×3 (05:38→21:57)
[2020-01-06] MEDS: KETOROLAC 30 MG/ML VIAL IV PRN ×2 (10:40→22:55)
[2020-01-06] MEDS: OXYCODONE HCL IR 5 MG TAB (IMMEDIATE RELEASE) PO PRN ×2 (14:29→21:55)
--- NOTE | 2020-01-06 16:00 | Hospitalist Progress Note ---
Date of Service January 06, 2020 Assessment & Plan (1) Infection due to ESBL-producing Escherichia coli: Continue Ertapenem 1 g IV daily. US guided IV placed and script given to CM. Patient will have 2 weeks total of abx. No pyelo on CT from 01/02 however with her systemic symptoms may have progressed. Unfortunately no BC and at this point abx therapy was initiated. Her VSS have been stable, does not appear septic CT of abdomen and pelvis performed on 10/17/2019 notes resection of a 16 cm cystic pelvic mass without notation of an enterovesicular fistula. Oxycodone 5 mg po q6h, Toradol, acetaminophen for pain control (2) Anxiety and depression: Continue Xanax 0.5 mg p.o. twice daily as needed (3) Hepatic steatosis: As seen on CT 01/02 Will need to follow with pcp (4) DVT prophylaxis: heparin subq Admission and Anticipated Discharge Date Admission Date: January 05, 2020 Subjective Ms. Alvarenga is having pain all through her torso and in her lower back. She does not have any radiation to her legs but her left leg has been numb since surgery this summer. She mostly experiences this pain when she coughs or changes position. She is also experiencing quite a bit of anxiety. She reports urinary hesitancy but states that this is normal for her since her surgeries this summer. ROS Constitutional: no chills, aches, sweats or fever Respiratory: no sob,cough, sputum, or wheezing Cardiac: no chest pain, palpitations, edema, orthopnea or lightheadedness GI: no abdominal pain, nausea, vomiting, diarrhea or constipation : no dysuria or hesitancy Extremities: no joint pain or weakness Skin: no rash All other systems reviewed and negative Physical Exam Physical Exam: General: no distress Eyes: normal inspection, PERLL Respiratory: chest non tender, clear to auscultation, normal breath sounds, no respiratory distress, no accessory muscle use Cardiac: regular rate and rhythm, no rub or gallop, no murmur, no edema, no jvd GI/: active bowel sounds, no abd pain or tenderness, soft, non distended Extremities: normal range of motion, normal strength, non tender Neuro/Psych: alert and oriented x 3, normal mood and affect Skin: normal color, dry Results & Data Results & Data ([facility]) Vital Signs (Past 12 Hours) Vital Signs Temp Pulse Resp BP Pulse Ox 01/06/20 15:14 36.6 C 73 17 101/64 98 01/06/20 07:21 36.7 C 75 16 122/74 96 PG Care Time/CCT Total # of Minutes Spent Total Time Spent with Patient: Total time spent is greater than 50% in coordination of care (as documented) at patient's floor/unit and/or counseling patient: Coding Level of Care Code 08210 Subseq Hosp Care Lvl 2 Diagnoses Infection due to ESBL-producing Escherichia coli A49.8; Z16.12 Anxiety and depression F41.9; F32.9 Hepatic steatosis K76.0 DVT prophylaxis Z29.9
[2020-01-06] MEDS: ACETAMINOPHEN 500 MG TAB PO SCH ×2 (16:56→23:52)
[2020-01-06] MEDS: LIDOCAINE 5% 1 PATCH TD SCH (17:27)
[2020-01-06] MEDS: ONDANSETRON INJ 2 MG/ML 2 ML VIAL IV PRN (18:33)
[2020-01-06] MEDS ORDERED: OPTIRAY 320 125ml IV ONE (18:53)
--- NOTE | 2020-01-06 19:10 | CT Scan Report ---
CT ANGIOGRAM OF THE CHEST CLINICAL HISTORY: Pleuritic chest pain. Dyspnea. COMPARISON STUDY: Chest CT dated 09/12/2016. TECHNIQUE: Following the IV administration of 120 cc of Optiray 320, CT angiogram of the chest was pe rformed from the upper abdomen to the thoracic inlet utilizing the pulmonary embolus protocol. Images are reviewed in the axial, sagittal, and coronal planes. 3-D MIPS images are created and assessed. I V contrast was administered without complication. A dose lowering technique was utilized adhering to the principles of ALARA. CT DOSE: 801.54 mGy.cm FINDINGS: Thyroid: Imaged portions of the thyroid gland are normal in size and attenuation. Thoracic aorta: The thoracic aorta is normal in caliber and demonstrates standard 3-vessel arch anato my. No dissection is seen. Pulmonary vasculature: The pulmonary trunk is normal in caliber. There are no filling defects identif ied in main, lobar, or segmental pulmonary branches to suggest pulmonary embolus. Heart: The heart is normal in size and without pericardial effusion. Lungs and pleural spaces: The lungs and pleural spaces are clear. The trachea and central airways are patent. Mediastinum: There is no mediastinal lymphadenopathy. Demi: Clear. Axillae: There is no axillary lymphadenopathy. Upper abdomen: The liver is enlarged and steatotic. Skeletal structures: No lytic or blastic bony lesions are seen. IMPRESSION: 1. There is no evidence of pulmonary embolus in the main, lobar, or segmental pulmonary arteries. 2. The lungs are clear. 3. Hepatomegaly and hepatic steatosis. ACT 112: Negative or not required by law. Electronically signed by: Ryan Flynn M.D. 01/06/2020 7:09 PM
--- NOTE | 2020-01-06 21:42 | Communication Note ---
Date of Service: January 06, 2020 Alysia was requesting Dilaudid for pain management. She told nursing that depending on the CT Chest results she was told she could get stronger pain me dication. CTA Chest was reviewed and was negative for PE or acute process. Will keep current orders as is. She has Oxycodone 5mg PO PRN And Toradol PRN ordered which is appropriate for pain management. Resident Activity Tracking Resident Involvement: Resident Care Provided Care Provided: Adult Hospital Medicine
[2020-01-06] MEDS: ERTAPENEM SODIUM 1,000 MG in SODIUM CHLORIDE 0.9% 50 ML IV SCH (21:52)
--- NOTE | 2020-01-06 22:26 | Electrocardiogram Report ---
Test Reason : Blood Pressure : / mmHG Vent. Rate : 087 BPM Atrial Rate : 087 BPM P-R Int : 136 ms QRS Dur : 074 ms QT Int : 364 ms P-R-T Axes : 042 059 017 degrees QTc Int : 438 ms Poor data quality, interpretation may be adversely affected Normal sinus rhythm Normal ECG When compared with ECG of 23-JUL-2019 14:44, No significant change was found Confirmed by Rigoberto Albert ([id number]) on 01/06/2020 10:26:42 PM Referred By: REFERRED SELF Confirmed By:Rigoberto Albert
[2020-01-07 06:34] LABS: Hematocrit (blood only) 41.6 % (37-47); Hemoglobin 13.6 g/dL (12.0-16.0); Mean Corpuscular Hgb Conc 32.7 g/dL (32-36); Mean Corpuscular Volume 88.7 fL (80-100); Mean Platelet Volume 10.3 fL (7.4-10.4); Platelet Count 263 K/uL (130-400); RDW Coefficient of Variation 13.8 % (11.5-14.5); RDW Standard Deviation 44.8 fL (36.4-46.3); Red Blood Count 4.69 M/uL (4.2-5.4); White Blood Count 11.13 K/uL (4.8-10.8)
[2020-01-07] MEDS: HEPARIN SOD 5,000 UNIT/0.5 ML VIAL SQ SCH ×2 (06:34→14:20)
[2020-01-07 07:08] LABS: Albumin Globulin Ratio 0.8 (0.9-2); Albumin Level 2.7 gm/dl (3.4-5.0); BUN Creatinine Ratio 14.9 (10-20); Bilirubin,Total 0.2 mg/dl (0.2-1); Calcium 7.9 mg/dl (8.5-10.1); Creatinine Clr Calc Pharmacy 146.9 ml/min; Est GFR (African American) 129.3; Est GFR (Non-African American) 111.6; Globulin 3.2 gm/dl (2.5-4.0); Potassium 4.2 mmol/L (3.5-5.1); Total Protein 5.9 gm/dl (6.4-8.2)
[2020-01-07] MEDS: ACETAMINOPHEN 500 MG TAB PO SCH (09:42)
[2020-01-07] MEDS: LIDOCAINE 5% 1 PATCH TD SCH (09:42)
[2020-01-07] MEDS: KETOROLAC 30 MG/ML VIAL IV PRN (09:43)
[2020-01-07] MEDS ORDERED: CONSULT PHARMACY STA (10:14)
--- NOTE | 2020-01-07 10:15 | Discharge Summary ---
Date of Service January 07, 2020 Admission HPI Per Admitting Provider The patient is a 24-year-old female who had undergone urinalysis and urine culture and sensitivity on January 01, which has grown ESBL E. coli, and has been called back into the ED to be admitted for IV antibiotics. She also reports generalized aching throughout her body. Admission Exam Per Admitting Provider The patient is awake, alert and oriented 3, well developed and well nourished, normocephalic and atraumatic, lying in bed and in no acute distress. HEENT--PERRL, EOMI, mucous membranes and oropharynx dry. Neck--supple. No JVD. No bruits. Thyroid normal, trachea midline, no adenopathy. Heart--normal S1 and S2. No murmurs, rubs or gallops. Lungs--clear bilaterally, no respiratory distress, no accessory muscle use. Abdomen--normal bowel sounds and soft. Nontender. Nondistended. Extremities--no cyanosis or clubbing. No edema. There are good distal pulses b/l. Dermatologic--normal skin turgor, normal color, no abnormal lymph nodes, no rash. Neurologic--cranial nerves II through XII grossly intact. Rheumatologic--normal range of motion. Psychiatric--normal affect. Principal Diagnosis ESBL E Coli UTI Discharge Exam Constitutional well developed, well nourished and + obese; no acute distress Eyes + anicteric sclerae and PERRL ENMT Ears: no hearing impairment Nose: no external nose abnormality Neck normal visual inspection Respiratory normal respiratory effort, lungs clear to auscultation Auscultation: + diminished lung sounds (throughout) Cardiovascular RRR, no murmur, no edema Gastrointestinal (Abdomen) normal bowel sounds, soft, nontender, no hepatosplenomegaly Musculoskeletal no cyanosis or clubbing, extremities motor strength 5/5 old scar lumbar spine without evidence of erythema/drainage/infection Skin RUE with US guided IV Neurologic patellar DTR's 2+ bilat, sensation intact and PERRL, EOMI, accommodation nl, no face palsy, no dysarthria Psychiatric Orientation: alert and oriented x 3 Affect: + anxious affect Lymphatic no cervical or axillary lymphadenopathy Discharge Data Allergies Allergy/AdvReac Type Severity Reaction Status Date / Time morphine AdvReac Severe Nausea Verified 01/05/20 21:20 pollen extracts AdvReac Intermediate congestion Verified 01/06/20 00:12 tramadol AdvReac Intermediate Hallucinating Verified 01/05/20 21:20 and rash/hives Consultations 01/05/20 21:29 ED Decision to Admit Stat 01/06/20 00:07 Consult Case Management - Discharge Planning Routine Ordered Studies 01/06/20 17:30 CT angio chest PE protocol Urgent Hospital Course (1) Infection due to ESBL-producing Escherichia coli: Previously evaluated in ER for ESBL Ecoli UTI and sent with rx for Nitrofurantoin, failing outpatient treatment CT A/P without evidence of pyelo, however systemic symptoms progressed and was initiated on Ertapenem. Repeat culture sensitive to Ertapenem -- ordered 1g IV daily and had US guided IV placed. Rx for abx given to CM to complete full two week course. As patient with generalized pain and weakness from infection and right handed, with manual vehicle, unable to safely drive to [facility] for treatment and home health services requested. Given short prescription of pain medication and zofran for nausea at discharge and to follow up with her PCP. 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 (2) Anxiety and depression: Continued Xanax 0.5 mg p.o. twice daily as needed (3) Hepatic steatosis: As seen on CT 01/02 --> to follow up with PCP outpatient (4) DVT prophylaxis: heparin subq while inpatient Patient with chest discomfort with deep breathing --> no fever, tachypnea, tachycardia, hypotension. CT Chest was obtained however, which was NEGATIVE for PE Discharged home with family on IV Ertapenem for total course 14 days. Total Time Total Time Spent Total Time Spent (In Minutes): 70 Discharge Plan Discharge Items Patient Disposition: Home - Home Health Services Reason For Visit: ESBL E coli UTI Discharge Diagnosis: ESBL E. Coli urinary tract infection Goals: You have been hospitalized for an acute medical problem. During your stay at [facility], we have made an effort to correct the problem that brought you to the hospital while keeping you as comfortable as possible. Medications were used to bring your condition under control and your discharge instructions will include directions for any medications you should take after leaving the hospital. Please make sure you see your Primary Care Provider as part of your follow up plan. Activity: Resume your previous activity Non-emergency contact: Primary Care Provider Call non-emergency contact if: you have any medication questions, your symptoms worsen and your pain is not controlled Follow-up/Referrals: Allie Jefferson MD [Primary Care Provider] - 01/13/20 11:30 am Diet: Heart Healthy Addtl Attending Provider Instructions: You have been hospitalized and found to have a urinary tract infection that is resistant to most oral antibiotics. Given you had previously failed outpatient treatment, decision was made to pursue IV antibiotics with Ertapenem. You have received these antibiotics while inpatient and have been set up with home health services to continue these daily injections for a total of two weeks of treatment. You have an additional 11 days of treatment. You have been set a short prescription of pain medication to take as needed for breakthrough pain but should continue with tylenol as needed up to 3,000mg daily (six total 500mg tablets). You have also been sent a prescription for zofran to utilize as needed for nausea. A CT scan was done while inpatient to make sure you did not have a blood clot and that was negative. Please follow up with your PCP in the next week to monitor your progress. Please return to the emergency department with any worsening pain, fever, shortness of breath or for any other symptoms that are concerning for you. It has been a pleasure being a part of the medical team providing for you while you have been in the hospital. Take care! Pending Studies at Discharge: No Stand-Alone Forms: My [facility], Work/School Release (Inpt), Smoking Cessation Medications and DC Order Prescriptions: New oxycodone 5 mg tablet 5 mg PO Q6H PRN (Reason: pain) Qty: 8 RF: 0 Continued ibuprofen 200 mg Tablet 200 - 800 mg PO Q8H PRN (Reason: Pain) RF: 0 acetaminophen 500 mg Tablet 1,000 mg PO Q6H PRN (Reason: Pain) RF: 0 alprazolam [Xanax] 0.5 mg tablet 0.5 mg PO BID PRN (Reason: Anxiety) RF: 0 ondansetron HCl [Zofran] 4 mg tablet 4 mg PO Q6H PRN (Reason: Nausea) Qty: 8 RF: 0 Discontinued nitrofurantoin monohyd/m-cryst [Macrobid] 100 mg capsule 100 mg PO BID 7 Days Qty: 14 RF: 0 No Action ertapenem 1 gram recon soln 1 g IV DAILY Qty: 1 RF: 0 Discharge Orders: Discharge Order (Routine); Ordered 01/07/20 Ordered By: Mery Miller Admission Data Admit Date/Time: 01/05/20 22:33 Attending Provider: Neftali Joseph Admit Provider: Femi Gonzales Primary Care Provider: Allie Jefferson Other Providers: Femi Gonzales ; Pershing,Home Care Other Interventions: Discharge Summary Assessment (RN) Last Done: 01/07/20 14:33 Supervising Physician Co-Signing Physician Notes Patient seen and examined on the day of discharge. I agree with the discharge summary by Mery RICHARDSON. I have reviewed the chart including labs, imaging and plans for discharge. patient feeling better, less chest and upper back discomfort discussed that the CTA chest was negative for PE, negative for musculoskeletal issue that could be causing pain plan to get home IV Ertapenem - ESBL E coli UTI will treat with Ertapenem IV for 2 weeks total set up for home IV treatment follow up with PCP Coding Level of Care Code D/C Day Management >30 mins Diagnoses Infection due to ESBL-producing Escherichia coli A49.8; Z16.12 Anxiety and depression F41.9; F32.9 Hepatic steatosis K76.0 DVT prophylaxis Z29.9
[2020-01-07 10:48] LABS: Creatine Kinase 136 U/L (26-192)
[2020-01-07] MEDS: ERTAPENEM SODIUM 1,000 MG in SODIUM CHLORIDE 0.9% 50 ML IV SCH (14:25)
[2020-01-07] MEDS: OXYCODONE HCL IR 5 MG TAB (IMMEDIATE RELEASE) PO PRN (14:26)
[2020-01-07] MEDS: ONDANSETRON INJ 2 MG/ML 2 ML VIAL IV PRN (14:45)
== END 2020-01-07 16:08 | disposition home health service (06) ==
LOC: ED 17:33 → SUATTDRO 22:33 → INTOOBSV 22:33 → 3N 22:33